=== PATIENT | female | born 1945 | race Caucasian/White ===

== ENCOUNTER → 2016-07-19 | Day surgery (SDC) | payer OTHER, BC ==
[2016-07-03 16:00] VITALS: Ht 177.8 cm; Wt 108.6 kg
[~2016-07-19] VITALS: Ht 177.8 cm; Wt 108.6 kg
[~2016-07-19] MED LIST: 500ML BSS 0.3ML EPI 1:1000PF IRRIG ONE; ACETAMINOPHEN 325 MG TAB PO PRN; AMB5 PO; AMLO-114 PO; AMVISC PLUS 0.8ML SYRINGE INT OCU ONE; ASPI81TA28 PO; ATOR10TA82 PO; ATROPINE SULFATE 0.1 MG/ML 5ML SYR IV PRN; BETAXOLOL HCL 0.25% OP SUSP PER DROP CHARGE OPR SCH; BRIMONIDINE TART 0.2% OP SOLN PER DROP CHARGE ONE; BSS FLUSH ONE; CALC200T PO; CARV6.25 PO; CARV6.252 PO; CIPR-255 PO; COEN100C11 PO; CRS/10 PO; CYCL5TAB PO; CYCL5TAB28 PO; ENDOCOAT 0.85ML SYRINGE INT OCU ONE; EpHEDrine SULFATE INJ 50 MG/ML AMP IV PRN; EpINEphrine INJ 1MG/ML AMP 1 MG/ML AMP ONE; FEXO1TAB49 PO; GLC/500 PO; GLUC1CAP35 PO; GLUCTAB32 PO; HYDR25TA4 PO; LACTATED RINGER'S 1000ML 500 ML IV SCH; LEVO125T5 PO; LIDOCAINE 4% OP SOLN DROP CHARGE ONE; LIDOCAINE 4% OP SOLN DROP CHARGE OPR SCH; LIDOCAINE HCL 1% MPF 2 ML VIAL ONE; LISI-729 PO; LOSA100T65 PO; LOSA1TAB38 PO; MELO15TA3 PO; METH500T3 PO; METH500T37 PO; METO25TA3 PO; METR-162 PO; MIDAZOLAM HCL 1 MG/ML 2ML VIAL ONE; MINEOIL26 PO; MIX: 4ML BSS 1ML EPI 1:1000 PF INSTIL ONE; MOXIFLOXACIN OPH SOLN PER DROP CHARGE ONE; MULT-190 PO; NSNN50; OCUCOAT 1 ML SOLN IO ONE; OMEG120013 PO; OXYC1TAB3 PO; POVIDONE-IODINE OP SOLN 30 ML BTL ONE; PRED1SUS OPR; PROPARACAINE 0.5% OP SOLN PER DROP CHARGE OPR SCH; TOBRAMYCIN/DEXAMETHASONE OPH OINT PER APPLN CHARGE ONE; TYL325X PO
--- NOTE | 2016-07-19 06:32 | History & Physical Bridge - [place] ---
H&P Re-Evaluation Bridge Note: I have examined the patient, reviewed the History & Physical and in the interval since the performance of the History & Physical I have noted the following changes of clinical significance: No changes noted
[2016-07-19] MEDS: PHENYLEPHRINE HCL 2.5% OP SOLN PER DROP CHARGE OPR SCH ×2 (07:17→07:23)
[2016-07-19] MEDS: TROPICAMIDE 1% OP SOLN PER DROP CHARGE OPR SCH ×2 (07:18→07:24)
[2016-07-19] MEDS: CYCLOPENTOLATE HCL 1% OP SOLN PER DROP CHARGE OPR SCH ×2 (07:19→07:25)
[2016-07-19] MEDS: MOXIFLOXACIN OPH SOLN PER DROP CHARGE OPR SCH ×2 (07:20→07:30)
--- NOTE | 2016-07-19 07:51 | Discharge Instructions-SurgCtr ---
Discharge Instructions Date of Service July 19, 2016. Visit Reason for Visit: Cataract Right Eye Discharge Discharge Diagnosis / Problem: lens implant right eye Discharge Goals Goal(s): Improve function Activity Recommendations Activity Limitations: resume your previous activity Lifting Limitations: no more than 10 pounds Exercise/Sports Limitations: gradually increase as tolerated May Resume Sexual Activity: when tolerated Shower/Bathe: no limitations Driving or Machine Use: resume 1 day after discharge Anesthesia . Post Anesthesia Instructions: If you have had General Anesthesia or IV Sedation: * Do not drive today. * Resume driving when surgeon permits. * Do not make important decisions or sign legal documents today. * Call surgeon for: 1. Temperature elevations greater than 101 degrees F. 2. Uncontrollable pain. 3. Excessive bleeding. 4. Persistent nausea and vomiting. 5. Medication intolerance (nausea, vomiting or rash). * For nausea and vomiting use only clear liquids such as: tea, soda, bouillon until nausea subsides, then gradually increase diet as tolerated. * If you have any concerns or questions, call your surgeon's office. If physician is unavailable and it is an emergency, call 911 or go to the nearest emergency room. . Instructions / Follow-Up Instructions / Follow-Up ACTIVITY RECOMMENDATIONS: * Light activities. * Mild irritation and blurred vision are common for the first few days. * You may walk outside, read, watch television. * Redness around the white part of the eye is common. MEDICATIONS: Resume previous medications unless instructed otherwise by your surgeon. Start all eye drops at 1 pm today: * Eye drops (today and tomorrow): Prednisone - one drop in operative eye every 3 hours while awake Ofloxacin - one drop in operative eye every 3 hours while awake SPECIAL CARE INSTRUCTIONS: * Tape plastic shield over eye to sleep at night. Call your doctor at with any concerns or problems. FOLLOW UP VISIT: Follow-up with Dr Tatum at [place] office as scheduled. Diet Recommendations Home Diet: no limitations Procedures Procedures Performed: cataract extraction with lens implant Pending Studies Studies pending at discharge: no Medical Emergencies . Who to Call and When: Medical Emergencies: If at any time you feel your situation is an emergency, please call 911 immediately. . Non-Emergent Contact Non-Emergency issues call your: Manager [employer] Call Non-Emergent contact if: your pain is not controlled [phone] . . "Provider Documentation" section prepared by Chad Tatum. .
--- NOTE | 2016-07-19 07:53 | [facility] Operative Report ---
Operative Report Date of Service July 19, 2016. Operative Report 1. PREOPERATIVE DIAGNOSIS: Senile nuclear cataract, right eye. 2. POSTOPERATIVE DIAGNOSIS: Senile nuclear cataract, right eye. 3. PROCEDURE: Phacoemulsification of right cataract with posterior chamber lens implant, type Bausch [employer] Lomb, model MI60L, power +18.0 diopters. ANESTHESIA: Local standby. SURGEON: Dr. Tatum. COMPLICATIONS: None. OPERATING TIME: 10 minutes. 4. OPERATION AND FINDINGS: DESCRIPTION OF PROCEDURE: The right pupil was dilated. The anesthetic was administered using a topical technique. The right eye was prepped and draped. A speculum was placed. A clear corneal incision was formed. The chamber was filled with Amvisc Plus and Endocoat. Epinephrine solution was used. A paracentesis was placed. A capsulorrhexis was performed. The nucleus was hydrodissected. The lens was removed with phacoemulsification. Time was 2.18 seconds. The aspiration unit was used to remove the cortex. The capsule was filled with Amvisc Plus. The lens implant was folded and placed into the capsule. The incision was hydrated. The Amvisc was aspirated. The wound was secure. The chamber was deep. The pupil was round. Brimonidine, TobraDex ointment and Vigamox solution were placed. The speculum was removed. The patient was returned to the Recovery Room in stable condition. I attest to the content of the Intraoperative Record and any orders documented therein. Any exceptions are noted below. The scribe's documentation has been prepared in my presence, under my direction and personally reviewed by me in its entirety. I confirm that the note above accurately reflects all work, treatment, procedures, and medical decision making performed by me. I personally scribed for Chad Tatum M.D. ([email or web address]) on 07/19/16 at 07:53. Electronically submitted by Tanika Church ([email or web address]).
--- NOTE | 2016-07-19 08:01 | Anesthesia Progress Nt - [facility] ---
Anesthesia Post Op Note Date & Time July 19, 2016 at 08:01 Vital Signs Pain Intensity: 0 Vital Signs Past 12 Hours Date Time Temp Pulse Resp B/P Pulse Ox O2 Delivery O2 Flow Rate FiO2 07/19/16 07:58 36.7 67 14 130/78 96 Room Air 07/19/16 07:11 36.9 61 16 128/80 96 Room Air Notes Mental Status: alert / awake / arousable, participated in evaluation Pt Amnestic to Procedure: Yes Nausea / Vomiting: adequately controlled Pain: adequately controlled Airway Patency, RR, SpO2: stable & adequate BP & HR: stable & adequate Hydration State: stable & adequate Anesthetic Complications: no major complications apparent
[2016-07-19 08:20] VITALS: BP 134/79; PULSE 61; TEMP 36.7; O2SAT 95
== END | disposition home or self-care (01) ==
LOC: X.SURG 06:14
PROVIDERS: ATTEND Specialist
DX: H25.11 Age-related nuclear cataract, right eye (principal); E11.36 Type 2 diabetes mellitus with diabetic cataract; I10 Essential (primary) hypertension; E03.9 Hypothyroidism, unspecified; E78.5 Hyperlipidemia, unspecified; E66.9 Obesity, unspecified; Z87.891 Personal history of nicotine dependence; Z88.2 Allergy status to sulfonamides; Z68.34 Body mass index [BMI] 34.0-34.9, adult; Z98.890 Other specified postprocedural states; Z90.89 Acquired absence of other organs; Z90.49 Acquired absence of other specified parts of digestive tract

== ENCOUNTER → 2016-08-02 | Day surgery (SDC) | payer OTHER, BC ==
[2016-07-31 10:38] VITALS: Ht 177.8 cm; Wt 108.6 kg
[~2016-08-02] VITALS: Ht 177.8 cm; Wt 108.6 kg
[~2016-08-02] MED LIST changes: +AcetaZOLAMIDE 250 MG TAB PO SCH; +AcetylCHOLine CHL OP SOL 1:100 2 ML BTL ONE; +BETAXOLOL HCL 0.25% OP SUSP PER DROP CHARGE OPL SCH; -BETAXOLOL HCL 0.25% OP SUSP PER DROP CHARGE OPR SCH; +CEFAZOLIN 1000MG/55 ML D5W IV SCH; +CEFAZOLIN 2000 MG/60 ML D5W IV SCH; +CEFAZOLIN 3000 MG/65 ML D5W IV SCH; +CLINDAMYCIN PHOS 150 MG/ML 2 ML VIAL IV SCH; +CYCLOPENTOLATE HCL 1% OP SOLN PER DROP CHARGE OPL SCH; +FENTANYL CITRATE INJ 50 MCG/1 ML 2 ML VIAL ONE; -LIDOCAINE 4% OP SOLN DROP CHARGE ONE; +LIDOCAINE 4% OP SOLN DROP CHARGE OPL SCH; -LIDOCAINE 4% OP SOLN DROP CHARGE OPR SCH; +LIDOCAINE HCL 2% 2 ML VIAL (20MG/ML) ONE; -LISI-729 PO; -MELO15TA3 PO; +MOXIFLOXACIN OPH SOLN PER DROP CHARGE OPL SCH; +NURSING VERBAL MED ORDER ONE; +ONDANSETRON INJ 2 MG/ML 2 ML VIAL ONE; +PHENYLEPHRINE HCL 2.5% OP SOLN PER DROP CHARGE OPL SCH; +PROPARACAINE 0.5% OP SOLN PER DROP CHARGE OPL SCH; -PROPARACAINE 0.5% OP SOLN PER DROP CHARGE OPR SCH; +PROPOFOL IV EMULSION 10 MG/ML 20 ML VIAL IV ONE; +SODIUM CHLORIDE 0.9% 500ML IV SCH; +TROPICAMIDE 1% OP SOLN PER DROP CHARGE OPL SCH; -TYL325X PO
[2016-08-02] MEDS: PHENYLEPHRINE HCL 2.5% OP SOLN PER DROP CHARGE OPL SCH ×2 (10:06→10:10)
[2016-08-02] MEDS: TROPICAMIDE 1% OP SOLN PER DROP CHARGE OPL SCH ×2 (10:07→10:12)
[2016-08-02] MEDS: CYCLOPENTOLATE HCL 1% OP SOLN PER DROP CHARGE OPL SCH ×2 (10:08→10:13)
[2016-08-02] MEDS: MOXIFLOXACIN OPH SOLN PER DROP CHARGE OPL SCH ×2 (10:09→10:17)
[2016-08-02] MEDS: LIDOCAINE 4% OP SOLN DROP CHARGE ONE ×2 (10:21→10:39)
--- NOTE | 2016-08-02 11:10 | Discharge Instructions-SurgCtr ---
Discharge Instructions Date of Service August 02, 2016. Visit Reason for Visit: Left Cataract Discharge Discharge Diagnosis / Problem: lens implant left eye Discharge Goals Goal(s): Improve function Medications Stopped Medications Name(s): last metformin on Sunday Activity Recommendations Activity Limitations: resume your previous activity Lifting Limitations: no more than 10 pounds Exercise/Sports Limitations: gradually increase as tolerated May Resume Sexual Activity: when tolerated Shower/Bathe: tomorrow Driving or Machine Use: resume 1 day after discharge Anesthesia . Post Anesthesia Instructions: If you have had General Anesthesia or IV Sedation: * Do not drive today. * Resume driving when surgeon permits. * Do not make important decisions or sign legal documents today. * Call surgeon for: 1. Temperature elevations greater than 101 degrees F. 2. Uncontrollable pain. 3. Excessive bleeding. 4. Persistent nausea and vomiting. 5. Medication intolerance (nausea, vomiting or rash). * For nausea and vomiting use only clear liquids such as: tea, soda, bouillon until nausea subsides, then gradually increase diet as tolerated. * If you have any concerns or questions, call your surgeon's office. If physician is unavailable and it is an emergency, call 911 or go to the nearest emergency room. . Instructions / Follow-Up Instructions / Follow-Up ACTIVITY RECOMMENDATIONS: * Light activities. * Mild irritation and blurred vision are common for the first few days. * You may walk outside, read, watch television. * Redness around the white part of the eye is common. MEDICATIONS: Resume previous medications unless instructed otherwise by your surgeon. Start all eye drops at 1 pm today: * Eye drops (today and tomorrow): Prednisone - one drop in operative eye every 3 hours while awake Ofloxacin - one drop in operative eye every 3 hours while awake SPECIAL CARE INSTRUCTIONS: * Tape plastic shield over eye to sleep at night. Call your doctor at with any concerns or problems. FOLLOW UP VISIT: Follow-up with Dr Tatum at [place] office as scheduled. Diet Recommendations Home Diet: no limitations Procedures Procedures Performed: Left Cataract Phacoemulsification With Intraocular Lens Implant Pending Studies Studies pending at discharge: no Medical Emergencies . Who to Call and When: Medical Emergencies: If at any time you feel your situation is an emergency, please call 911 immediately. . Non-Emergent Contact Non-Emergency issues call your: Dry Room Attendant Call Non-Emergent contact if: your pain is not controlled [phone] . . "Provider Documentation" section prepared by Chad Tatum. .
[2016-08-02 11:15] VITALS: TEMP 36.6
--- NOTE | 2016-08-02 11:19 | [facility] Post Operative Brief Note ---
Immediate Operative Summary Operative Date August 02, 2016. Pre-Operative Diagnosis Cataract Left Eye Post-Operative Diagnosis Same Procedure(s) Performed Left Cataract Phacoemulsification With Intraocular Lens Implant Ruptured Posterior Capsule requiring anterior vitrectomy and sulcus lens implant and a single suture. Surgeon Dr. Tatum Licensing And Registration Director Surgeon(s) None Estimated Blood Loss 0 Findings Nuclear Cataract Fluids (cc crystalloids) 600cc Specimens None Drains none Anesthesia local standby Complication(s) posterior capsular rupture requiring anterior vitrectomy
[2016-08-02 11:46] VITALS: BP 125/75; PULSE 60; O2SAT 95
--- NOTE | 2016-08-02 11:49 | Anesthesia Progress Nt - [facility] ---
Anesthesia Post Op Note Date & Time August 02, 2016 at 11:49 Vital Signs Pain Intensity: 0 Vital Signs Past 12 Hours Date Time Temp Pulse Resp B/P Pulse Ox O2 Delivery O2 Flow Rate FiO2 08/02/16 11:46 60 16 125/75 95 Room Air 08/02/16 11:15 36.6 82 16 147/82 96 Room Air 08/02/16 09:51 36.8 62 16 136/78 96 Room Air Notes Mental Status: alert / awake / arousable, participated in evaluation Pt Amnestic to Procedure: Yes Nausea / Vomiting: adequately controlled Pain: adequately controlled Airway Patency, RR, SpO2: stable & adequate BP & HR: stable & adequate Hydration State: stable & adequate Anesthetic Complications: no major complications apparent
--- NOTE | 2016-08-02 11:53 | OPERATIVE REPORT ---
DATE OF OPERATION: 08/02/2016 PREOPERATIVE DIAGNOSIS: Senile nuclear cataract, left eye. POSTOPERATIVE DIAGNOSIS: Senile nuclear cataract, left eye. PROCEDURE: Phacoemulsification of left cataract with posterior chamber lens implant, type Bausch \T\ Lomb, model LI61AO, power +19.0 Diopters. ANESTHESIA: Local standby using 4% topical lidocaine. SURGEON: Dr. Tatum. COMPLICATIONS: Posterior capsule rupture requiring anterior vitrectomy. OPERATING TIME: 35 minutes. OPERATION AND FINDINGS: PROCEDURE: The patient was identified. The left pupil was dilated. The left eye was prepped and draped. A speculum was placed. A paracentesis was placed. The chamber was filled with Amvisc Plus and EndoCoat. A temporal clear corneal incision was formed. A capsulorrhexis was performed. The nucleus was hydrodissected. The lens was removed with phacoemulsification. Time was 3.55. The cortex was aspirated. It was noticed at this time that there was a break in the posterior capsule with vitreous to the incision. An anterior vitrectomy was performed. At the completion of this procedure there was no apparent vitreous in the anterior chamber or to the incision. The chamber was filled with Amvisc Plus. The lens implant was inspected and folded and placed into the posterior chamber sulcus. The incision was closed using a single 10-0 nylon suture. The Amvisc was aspirated. Miochol was irrigated into the chamber. The suture knot was cut short. The incisions were hydrated. The wounds were secure. The chamber was deep. The pupil was round. Alphagan and TobraDex and Vigamox were placed. The speculum was removed. The eye did not require a patch. DISPOSITION: The patient was returned to the recovery room in stable condition having tolerated the procedure well. I attest to the content of the Intraoperative Record and any orders documented therein. Any exceptio ns are noted below.
== END | disposition home or self-care (01) ==
LOC: X.SURG 09:20
PROVIDERS: ATTEND Specialist
DX: H25.12 Age-related nuclear cataract, left eye (principal); H59.219 Accidental puncture and laceration of unspecified eye and adnexa during an ophthalmic procedure; I10 Essential (primary) hypertension; Z79.899 Other long term (current) drug therapy; Z79.82 Long term (current) use of aspirin

== ENCOUNTER 2016-08-11 11:40 | Emergency (ER) | payer OTHER, BC ==
[~2016-08-11] VITALS: Ht 177.8 cm; Wt 85.8 kg
[~2016-08-11 11:40] MED LIST changes: -500ML BSS 0.3ML EPI 1:1000PF IRRIG ONE; -ACETAMINOPHEN 325 MG TAB PO PRN; -AMB5 PO; -AMVISC PLUS 0.8ML SYRINGE INT OCU ONE; -ASPI81TA28 PO; -ATROPINE SULFATE 0.1 MG/ML 5ML SYR IV PRN; -AcetaZOLAMIDE 250 MG TAB PO SCH; -AcetylCHOLine CHL OP SOL 1:100 2 ML BTL ONE; -BETAXOLOL HCL 0.25% OP SUSP PER DROP CHARGE OPL SCH; -BRIMONIDINE TART 0.2% OP SOLN PER DROP CHARGE ONE; -BSS FLUSH ONE; -CARV6.25 PO; -CEFAZOLIN 1000MG/55 ML D5W IV SCH; -CEFAZOLIN 2000 MG/60 ML D5W IV SCH; -CEFAZOLIN 3000 MG/65 ML D5W IV SCH; -CIPR-255 PO; -CLINDAMYCIN PHOS 150 MG/ML 2 ML VIAL IV SCH; -COEN100C11 PO; -CRS/10 PO; -CYCL5TAB PO; -CYCLOPENTOLATE HCL 1% OP SOLN PER DROP CHARGE OPL SCH; -ENDOCOAT 0.85ML SYRINGE INT OCU ONE; -EpHEDrine SULFATE INJ 50 MG/ML AMP IV PRN; -EpINEphrine INJ 1MG/ML AMP 1 MG/ML AMP ONE; -FENTANYL CITRATE INJ 50 MCG/1 ML 2 ML VIAL ONE; -FEXO1TAB49 PO; -GLUC1CAP35 PO; -LACTATED RINGER'S 1000ML 500 ML IV SCH; -LIDOCAINE 4% OP SOLN DROP CHARGE OPL SCH; -LIDOCAINE HCL 1% MPF 2 ML VIAL ONE; -LIDOCAINE HCL 2% 2 ML VIAL (20MG/ML) ONE; -LOSA100T65 PO; -METH500T3 PO; -METO25TA3 PO; -METR-162 PO; -MIDAZOLAM HCL 1 MG/ML 2ML VIAL ONE; -MINEOIL26 PO; -MIX: 4ML BSS 1ML EPI 1:1000 PF INSTIL ONE; -MOXIFLOXACIN OPH SOLN PER DROP CHARGE ONE; -MOXIFLOXACIN OPH SOLN PER DROP CHARGE OPL SCH; -NURSING VERBAL MED ORDER ONE; -OCUCOAT 1 ML SOLN IO ONE; -OMEG120013 PO; -ONDANSETRON INJ 2 MG/ML 2 ML VIAL ONE; -OXYC1TAB3 PO; -PHENYLEPHRINE HCL 2.5% OP SOLN PER DROP CHARGE OPL SCH; -POVIDONE-IODINE OP SOLN 30 ML BTL ONE; -PROPARACAINE 0.5% OP SOLN PER DROP CHARGE OPL SCH; -PROPOFOL IV EMULSION 10 MG/ML 20 ML VIAL IV ONE; -SODIUM CHLORIDE 0.9% 500ML IV SCH; -TOBRAMYCIN/DEXAMETHASONE OPH OINT PER APPLN CHARGE ONE; -TROPICAMIDE 1% OP SOLN PER DROP CHARGE OPL SCH
[2016-08-11 11:42] VITALS: TEMP 37.3; Ht 177.8 cm; Wt 85.8 kg
[2016-08-11] MEDS ORDERED: SODIUM CHLORIDE 0.9% 1000ML 1,000 ML IV STA (12:05)
[2016-08-11] MEDS ORDERED: MoRPHine SULFATE 10 MG/ML CARP/VIAL IV STA ×2 (12:05→13:43)
[2016-08-11] MEDS ORDERED: ONDANSETRON INJ 2 MG/ML 2 ML VIAL IV STA (12:05)
[2016-08-11 12:20] LABS: BASO % 0.1 %; BASO ABS # 0.02 K/uL (0-0.2); COMPLETE YES; EOS % 0.4 %; HEMATOCRIT 41.9 % (37-47); IG% 0.3 %; LYMPH % 12.9 %; LYMPH ABS # 1.93 K/uL (1.2-3.4); MEAN CELL VOLUME 89.1 fL (80-100); MEAN CORPUSCULAR HEMOGLOBIN 29.6 pg (25-34); MEAN CORPUSCULAR HGB CONC 33.2 g/dl (32-36); MEAN PLATELET VOLUME 11.7 fL (7.4-10.4); MONO % 7.4 %; NEUT % 78.9 %; PLATELET COUNT 201 K/uL (130-400); WHITE BLOOD COUNT 14.93 K/uL (4.8-10.8)
[2016-08-11] MEDS ORDERED: METH500T3 PO (12:32)
[2016-08-11] MEDS ORDERED: OMEG120013 PO (12:35)
[2016-08-11] MEDS ORDERED: CRS/10 PO (12:35)
[2016-08-11] MEDS ORDERED: COEN100C11 PO (12:35)
[2016-08-11] MEDS ORDERED: FEXO1TAB49 PO (12:35)
[2016-08-11] MEDS ORDERED: MINEOIL26 PO (12:35)
[2016-08-11] MEDS ORDERED: ASPI81TA28 PO (12:35)
[2016-08-11] MEDS ORDERED: METO25TA3 PO (12:35)
[2016-08-11] MEDS ORDERED: AMB5 PO (12:35)
[2016-08-11 12:40] LABS: URINE APPEARANCE CLEAR (CLEAR); URINE BILIRUBIN NEG (NEG); URINE COLOR YELLOW; URINE NITRITE NEG (NEG); URINE PH 5.5 (4.5-7.5); URINE SPECIFIC GRAVITY 1.019 (1.000-1.030); UROBILINOGEN NEG (NEG); ZZUR CULT IF INDIC CLEAN CATCH NO
[2016-08-11 12:42] LABS: BUN/CREATININE RATIO 14.1 (10-20); CALCIUM 9.2 mg/dl (8.5-10.1); CREATININE 0.87 mg/dl (0.60-1.20)
[2016-08-11 12:55] LABS: MANUAL MICROSCOPIC REQUIRED? NO; REVIEW REQ? NO
[2016-08-11] MEDS ORDERED: GLC/500 PO (12:55)
[2016-08-11] MEDS ORDERED: GLUC1CAP35 PO (12:55)
[2016-08-11] MEDS ORDERED: LOSA100T65 PO (12:55)
[2016-08-11] MEDS ORDERED: CARV6.25 PO (12:55)
[2016-08-11] MEDS ORDERED: CALC200T PO (12:55)
[2016-08-11] MEDS ORDERED: ATOR10TA82 PO (12:55)
[2016-08-11] MEDS ORDERED: MULT-190 PO (12:55)
[2016-08-11] MEDS ORDERED: LEVO125T5 PO (12:55)
[2016-08-11] MEDS ORDERED: HYDR25TA4 PO (12:55)
[2016-08-11] MEDS ORDERED: AMLO-114 PO (12:55)
[2016-08-11] MEDS ORDERED: METH500T37 PO (12:55)
[2016-08-11] MEDS ORDERED: PRED1SUS OPR (12:55)
[2016-08-11] MEDS ORDERED: CYCL5TAB PO (12:55)
--- NOTE | 2016-08-11 13:37 | DIAGNOSTIC IMAGING REPORT ---
ABDOMEN AND PELVIS CT WITH IV CONTRAST CT DOSE: 953.87 mGycm HISTORY: Left flank pain ll. Abd pain TECHNIQUE: Multiaxial CT images of the abdomen and pelvis were performed following the use of intravenous contrast. COMPARISON STUDY: None. FINDINGS: Mild dependent basilar atelectasis. Liver spleen and pancreas appear unremarkable. Right kidney is negative for hydronephrosis. There is an extrarenal pelvis involving the left kidney with several sub-5 mm cortical cyst. Wall thickening of the proximal to mid descending colon is noted with associated with several diverticuli. There is moderate/rather significant pericolonic infiltrative change. There is no evidence for drainable abscess collection or obstruction.. There are findings of mild chronic sigmoid diverticulosis. There is no free fluid within the pelvic cul-de-sac. Bladder is midline. There is no significant abdominal pelvic or inguinal adenopathy. IMPRESSION: 1. Acute proximal to mid descending colonic diverticulitis. 2. Wall thickening and pericolonic infiltrative change, 3. No evidence for abscess collection or obstruction. Electronically signed by: Prosper Turner M.D. 08/11/2016 1:36 PM Dictated Date/Time: 08/11/2016 1:30 PM
[2016-08-11] MEDS ORDERED: CIPROFLOXACIN 500 MG TAB PO STA (13:42)
[2016-08-11] MEDS ORDERED: METRONIDAZOLE 500MG / 100ML NSS IV STA (13:42)
[2016-08-11 14:39] VITALS: O2SAT 94
[2016-08-11] MEDS ORDERED: METR-162 PO (15:38)
[2016-08-11] MEDS ORDERED: CIPR-255 PO (15:38)
[2016-08-11] MEDS ORDERED: OXYC1TAB3 PO (15:38)
[2016-08-11 15:45] VITALS: BP 112/66; PULSE 81; O2SAT 94
--- NOTE | 2016-08-11 17:18 | EMERGENCY ROOM VISIT NOTE ---
History Report prepared by So: Lamar Caban Under the Supervision of: Dr. Dhiraj Gutiérrez D.O. First contact with patient: 11:41 Chief Complaint: ABDOMINAL PAIN History of Present Illness The patient is a 71 year old female who presents to the Emergency Room with complaints of constant severe left sided abdominal pain beginning last night. She notes that last night she felt her abdomen was distended and she needed to have a bowel movement. She did drink prune juice. The patient also notes nausea and vomiting. She has a history of appendectomy and complete hysterectomy. She has a history of diverticulitis. Patient was referred by PCP. Pt denies headache , change in vision, fevers, chest pain, shortness of breath, diarrhea, pain with urination, and melena. Source of History: patient Onset: last night Position: abdomen (left sided) Symptom Intensity: severe Timing: constant Associated Symptoms: + nausea, + vomiting, No fevers Review of Systems See HPI for pertinent positives & negatives. A total of 10 systems reviewed and were otherwise negative. Past Medical & Surgical Medical Problems: (1) Benign hypertension (2) Degenerative disc disease (3) Dyslipidemia (4) Dyslipidemia (5) HTN (hypertension) (6) Lumbago (7) Respiratory failure, acute Surgical Problems: (1) Appendectomy (2) Cholecystectomy (3) History of appendectomy (4) History of hysterectomy (5) History of tonsillectomy and adenoidectomy (6) Hx of cholecystectomy (7) Hysterectomy (8) Tonsillectomy and adenoidectomy (9) Vaginal sling Family History Cancer Diabetes mellitus Heart disease Hypertension Kidney disease Kidney stones Social History Smoking Status: Never Smoker Drug Use: none Marital Status: Housing Status: lives with family Occupation Status: retired Current/Historical Medications Scheduled Amlodipine (Norvasc), 10 MG PO DAILY Atorvastatin (Lipitor), 10 MG PO DAILY Calcium Carbonate-Vitamin D (Oscal 500/200 D-3), 1 TAB PO DAILY Carvedilol (Coreg), 6.25 MG PO BID Ciprofloxacin Hcl (Cipro), 500 MG PO BID Wduabdssnzr-Fpntjhacjbl-Gxx C- (Glucosamine Chondroitin), 1 CAP PO DAILY Hydrochlorothiazide (Hctz), 25 MG PO 2XWK Levothyroxine Sodium (Levothyroxine Sodium), 1 TAB PO DAILY Losartan Potassium (Cozaar), 100 MG PO DAILY Metformin Hcl (Glucophage), 500 MG PO DAILY Metronidazole (Flagyl), 1 TAB PO TID Ocuvite Preservision (Ocuvite Preservision), 1 TAB PO DAILY Prednisolone Acetate (Ophth) (Omnipred), 1 DROPS OPR TID Scheduled PRN Cyclobenzaprine Hcl (Flexeril), 5 MG PO TID PRN for Muscle Spasms Methocarbamol (Robaxin), 500 MG PO TID PRN for UNDECIDED Oxycodone Immediate Rel Tab (Roxicodone Ir), 5 MG PO Q6H PRN for Pain Allergies Coded Allergies: Nitrofurantoin (Verified Allergy, Mild, TONGUE SWELLS, 08/02/16) Sulfa Antibiotics (Verified Allergy, Unknown, ITCHY-BUT TAKES HCTZ W/O PROBLEM, 08/02/16) Physical Exam Vital Signs Date Time Temp Pulse Resp B/P Pulse Ox O2 Delivery O2 Flow Rate FiO2 08/11/16 15:45 81 20 112/66 94 Room Air 08/11/16 14:39 94 Nasal Cannula 3.0 08/11/16 14:37 82 16 137/66 86 Room Air 08/11/16 13:32 87 22 143/68 92 Room Air 08/11/16 12:02 86 08/11/16 11:42 37.3 85 20 138/82 96 Room Air Physical Exam GENERAL: alert, disheveled appearing, well nourished, no distress, non-toxic EYE EXAM: normal conjunctiva, PERRL and EOM's grossly intact OROPHARYNX: no exudate, no erythema, lips, buccal mucosa, and tongue normal and mucous membranes are moist NECK: supple, no nuchal rigidity, no adenopathy, non-tender LUNGS: Clear to auscultation. Normal chest wall mechanics HEART: no murmurs, S1 normal and S2 normal ABDOMEN: abdomen soft, left lower quadrant tenderness, normo-active bowel sounds , no masses, no rebound or guarding. BACK: Back is symmetrical on inspection and there is no deformity, no midline tenderness, no CVA tenderness. SKIN: no rashes and no bruising UPPER EXTREMITIES: upper extremities are grossly normal. LOWER EXTREMITIES: No pitting edema. NEURO EXAM: Normal sensorium, cranial nerves II-XII grossly intact, normal speech, no gross weakness of arms, no gross weakness of legs. Medical Decision & Procedures ER Provider Diagnostic Interpretation: CT scan: Radiology provided the following report CT Abdomen and Pelvis: The preliminary reading from radiology is the following, ABDOMEN AND PELVIS CT WITH IV CONTRAST CT DOSE: 953.87 mGycm HISTORY: Left flank pain ll. Abd pain TECHNIQUE: Multiaxial CT images of the abdomen and pelvis were performed following the use of intravenous contrast. COMPARISON STUDY: None. FINDINGS: Mild dependent basilar atelectasis. Liver spleen and pancreas appear unremarkable. Right kidney is negative for hydronephrosis. There is an extrarenal pelvis involving the left kidney with several sub-5 mm cortical cyst. Wall thickening of the proximal to mid descending colon is noted with associated with several diverticuli. There is moderate/rather significant pericolonic infiltrative change. There is no evidence for drainable abscess collection or obstruction.. There are findings of mild chronic sigmoid diverticulosis. There is no free fluid within the pelvic cul-de-sac. Bladder is midline. There is no significant abdominal pelvic or inguinal adenopathy. IMPRESSION: 1. Acute proximal to mid descending colonic diverticulitis. 2. Wall thickening and pericolonic infiltrative change, 3. No evidence for abscess collection or obstruction. Electronically signed by: Prosper Turner M.D. 08/11/2016 1:36 PM Dictated Date/Time: 08/11/2016 1:30 PM Laboratory Results 08/11/16 12:00 Red Blood Count 4.70, Mean Corpuscular Volume 89.1, Mean Corpuscular Hemoglobin 29.6, Mean Corpuscular Hemoglobin Concent 33.2, Mean Platelet Volume 11.7, Neutrophils (%) (Auto) 78.9, Lymphocytes (%) (Auto) 12.9, Monocytes (%) (Auto) 7.4, Eosinophils (%) (Auto) 0.4, Basophils (%) (Auto) 0.1, Neutrophils # (Auto) 11.78, Lymphocytes # (Auto) 1.93, Monocytes # (Auto) 1.10, Eosinophils # (Auto) 0.06, Basophils # (Auto) 0.02 08/11/16 12:00 Test 08/11/16 12:00 08/11/16 12:25 White Blood Count 14.93 K/uL (4.8-10.8) Red Blood Count 4.70 M/uL (4.2-5.4) Hemoglobin 13.9 g/dL (12.0-16.0) Hematocrit 41.9 % (37-47) Mean Corpuscular Volume 89.1 fL (80-100) Mean Corpuscular Hemoglobin 29.6 pg (25-34) Mean Corpuscular Hemoglobin Concent 33.2 g/dl (32-36) Platelet Count 201 K/uL (130-400) Mean Platelet Volume 11.7 fL (7.4-10.4) Neutrophils (%) (Auto) 78.9 % Lymphocytes (%) (Auto) 12.9 % Monocytes (%) (Auto) 7.4 % Eosinophils (%) (Auto) 0.4 % Basophils (%) (Auto) 0.1 % Neutrophils # (Auto) 11.78 K/uL (1.4-6.5) Lymphocytes # (Auto) 1.93 K/uL (1.2-3.4) Monocytes # (Auto) 1.10 K/uL (0.11-0.59) Eosinophils # (Auto) 0.06 K/uL (0-0.5) Basophils # (Auto) 0.02 K/uL (0-0.2) RDW Standard Deviation 43.5 fL (36.4-46.3) RDW Coefficient of Variation 13.2 % (11.5-14.5) Immature Granulocyte % (Auto) 0.3 % Immature Granulocyte # (Auto) 0.04 K/uL (0.00-0.02) Anion Gap 6.0 mmol/L (3-11) Est Creatinine Clear Calc Drug Dose 71.6 ml/min Estimated GFR () 78.2 Estimated GFR (Non- 67.5 BUN/Creatinine Ratio 14.1 (10-20) Calcium Level 9.2 mg/dl (8.5-10.1) Total Bilirubin 1.1 mg/dl (0.2-1) Direct Bilirubin 0.3 mg/dl (0-0.2) Aspartate Amino Transf (AST/SGOT) 44 U/L (15-37) Alanine Aminotransferase (ALT/SGPT) 40 U/L (12-78) Alkaline Phosphatase 83 U/L (45-117) Total Protein 7.7 gm/dl (6.4-8.2) Albumin 3.8 gm/dl (3.4-5.0) Lipase 143 U/L (73-393) Urine Color YELLOW Urine Appearance CLEAR (CLEAR) Urine pH 5.5 (4.5-7.5) Urine Specific [place] 1.019 (1.000-1.030) Urine Protein NEG (NEG) Urine Glucose (UA) NEG (NEG) Urine Ketones NEG (NEG) Urine Occult Blood TRACE (NEG) Urine Nitrite NEG (NEG) Urine Bilirubin NEG (NEG) Urine Urobilinogen NEG (NEG) Urine Leukocyte Esterase NEG (NEG) Urine WBC (Auto) 0 /hpf (0-5) Urine RBC (Auto) 0-4 /hpf (0-4) Urine Hyaline Casts (Auto) 1-5 /lpf (0-5) Urine Epithelial Cells (Auto) 5-10 /lpf (0-5) Urine Bacteria (Auto) NEG (NEG) Laboratory results per my review. Medications Administered Medications (Trade) Dose Ordered Sig/Sia Route Start Time Stop Time Status Last Admin Dose Admin Morphine Sulfate (MoRPHine SULFATE INJ) 6 mg NOW STAT IV 08/11/16 12:05 08/11/16 12:06 DC 08/11/16 12:19 6 MG Ondansetron HCl 4 mg 4 mg NOW STAT IV 08/11/16 12:05 08/11/16 12:06 DC 08/11/16 12:19 4 MG Sodium Chloride (Nss 1000ml) 1,000 ml @ 999 mls/hr Q1H1M STAT IV 08/11/16 12:05 08/11/16 13:05 DC 08/11/16 12:18 999 MLS/HR Metronidazole (Flagyl / Nss) 500 mg NOW STAT IV 08/11/16 13:42 08/11/16 13:43 DC 08/11/16 13:58 500 MG Ciprofloxacin (Cipro Tab) 500 mg NOW STAT PO 08/11/16 13:42 08/11/16 13:43 DC 08/11/16 13:58 500 MG Morphine Sulfate (MoRPHine SULFATE INJ) 6 mg NOW STAT IV 08/11/16 13:43 08/11/16 13:44 DC 08/11/16 13:58 6 MG ED Course ED COURSE: Vital signs were reviewed and showed hypertensive vitals. The patients medical record was reviewed The above diagnostic studies were performed and reviewed. ED treatments and interventions as stated above. 1159: The patient was evaluated in room B11. A complete history and physical examination was performed. 1205: Sodium Chloride 1,000 ml @ 999 mls/hr IV, Zofran Inj 4 mg IV, Morphine Sulfate Inj 6 mg IV. 1319: The patient is sleeping now after the Morphine. 1342: Cipro Tab 500 mg PO, Flagyl/ Nss 500 mg IV, Morphine Sulfate Inj 6 mg IV. 1524: I reevaluated the patient and she is doing well. 1540: Upon reevaluation, the patient is hemodynamically stable.I discussed my findings with the patient and she understands and agrees with the treatment plan. Based on the patients age, coexisting illnesses, exam and lab findings the decision to treat as an outpatient was made. The patient remained stable while under my care. The patient appeared well at the time of discharge. Medical Decision Differential diagnoses includes but is not limited to gastritis, peptic ulcer disease, GERD, gallbladder disease, pancreatitis, small bowel obstruction, acute coronary syndrome, pericarditis, ischemic bowel, irritable bowel disease, irritable bowel syndrome, appendicitis, diverticulitis, malignancy, hernia, urinary tract infection, torsion, [/ectopic (if female)], perforation, trauma, infectious. The patient is a 71 year old female who presents to the ED with complaints of abdominal pain. She is acutely tender in left lower quadrant. CT of her abdomen pelvis shows acute diverticulitis without perforation or abscess. Labs do show a leukocytosis of 14,000. There was slight elevation of bilirubin however with pain on the left lower quadrant and this is not explored any further especially with a negative CT. Patient was given 2 doses of IV narcotics along with IV Flagyl and oral Cipro. Patient was discharged to follow -up with primary care doctor for acute diverticulitis. Discussed with Pt concerning signs and symptoms to watch out for. Pt was instructed to follow up with their PCP and discussed with the patient their option to return to the ED at anytime for persistent or worsening symptoms. The appropriate anticipatory guidance and out-patient management, including indications for return to the emergency department, were explained at length to the patient and understood. [place] Drug Monitoring Program Search Results: patient reviewed within database, no issues identified Impression Primary Impression: Diverticulitis Additional Impression: Leukocytosis Scribe Attestation The scribe's documentation has been prepared under my direction and personally reviewed by me in its entirety. I confirm that the note above accurately reflects all work, treatment, procedures, and medical decision making performed by me. Departure Information Dispostion Home / Self-Care Prescriptions Ciprofloxacin Hcl (CIPRO) 500 Mg Tab 500 MG PO BID, #20 TAB Prov: Dhiraj Gutiérrez, DO 08/11/16 Metronidazole (FLAGYL) 500 Mg Tab 1 TAB PO TID for 10 Days, #30 TAB Prov: Dhiraj Gutiérrez, DO 08/11/16 Oxycodone Immediate Rel Tab (ROXICODONE IR) 5 Mg Tab 5 MG PO Q6H Y for Pain, #15 TAB Prov: Dhiraj Gutiérrez, DO 08/11/16 Referrals Ran Angel M.D. (PCP) Forms HOME CARE DOCUMENTATION FORM, IMPORTANT VISIT INFORMATION Patient Instructions ED Diverticulitis, [facility] Additional Instructions Please follow up with your primary care doctor with in the next 24 hours. Any worsening of your symptoms, please return to the ED immediately. His includes fevers greater than 100.4, worsening pain, persistent nausea vomiting, unable to eat or drink, or any other concerning signs or symptoms from your standpoint. You were given medications during this visit that will inhibit your ability to drive, operate machinery and work. Please do NOT drive, operate machinery or work for the next 12hrs. You were also given a prescription for a narcotic/oxy IR. While taking this medication you should also not drive, operate machinery and or work. Please take antibiotics as prescribed. Problem Qualifiers Primary Impression: Diverticulitis Diverticulitis site: unspecified part of intestinal tract Diverticulitis bleeding: without bleeding Diverticulitis complication: without perforation or abscess Qualified Codes: K57.92 - Diverticulitis of intestine, part unspecified, without perforation or abscess without bleeding Additional Impression: Leukocytosis Leukocytosis type: unspecified Qualified Codes: D72.829 - Elevated white blood cell count, unspecified
[2016-08-15] MEDS ORDERED: METR-162 PO (12:12)
[2016-08-15] MEDS ORDERED: CIPR-255 PO (12:12)
== END 2016-08-11 15:46 | disposition home or self-care (01) ==
LOC: C.EDB 11:41
DX: K57.92 Diverticulitis of intestine, part unspecified, without perforation or abscess without bleeding (principal); D72.829 Elevated white blood cell count, unspecified; I10 Essential (primary) hypertension; E78.5 Hyperlipidemia, unspecified; J96.00 Acute respiratory failure, unspecified whether with hypoxia or hypercapnia; Z83.3 Family history of diabetes mellitus; Z82.49 Family history of ischemic heart disease and other diseases of the circulatory system

== ENCOUNTER 2016-08-12 15:48 | Inpatient (IN) | payer OTHER, BC ==
[~2016-08-12] VITALS: Ht 177.8 cm; Wt 109.4 kg
[~2016-08-12 15:48] MED LIST changes: +CARV6.25 PO; -CARV6.252 PO; +CIPR-255 PO; +CYCL5TAB PO; -CYCL5TAB28 PO; +GLUC1CAP35 PO; -GLUCTAB32 PO; +LOSA100T65 PO; -LOSA1TAB38 PO; +METR-162 PO; -NSNN50; +OXYC1TAB3 PO
[2016-08-12] MEDS ORDERED: ONDANSETRON INJ 2 MG/ML 2 ML VIAL ONE (16:07)
[2016-08-12] MEDS ORDERED: HYDROmorphone INJ 0.5 MG/0.5 ML SYR IV STA (16:08)
[2016-08-12] MEDS ORDERED: ONDANSETRON INJ 2 MG/ML 2 ML VIAL IV STA (16:08)
[2016-08-12] MEDS ORDERED: SODIUM CHLORIDE 0.9% 1000ML 1,000 ML IV STA (16:08)
[2016-08-12] MEDS ORDERED: DAPTOmycin IV 600 MG in SODIUM CHLORIDE 0.9% 50ML 50 ML IV STA (16:10)
[2016-08-12] MEDS ORDERED: PIPERACILLIN/TAZOBACTAM 4.5 GM/100ML D5W IV STA (16:10)
[2016-08-12 16:21] LABS: BASO % 0.1 %; BASO ABS # 0.01 K/uL (0-0.2); COMPLETE YES; EOS % 0.2 %; HEMATOCRIT 36.6 % (37-47); IG% 0.4 %; LYMPH % 17.5 %; MEAN CELL VOLUME 89.7 fL (80-100); MEAN CORPUSCULAR HEMOGLOBIN 28.9 pg (25-34); MEAN CORPUSCULAR HGB CONC 32.2 g/dl (32-36); MEAN PLATELET VOLUME 10.9 fL (7.4-10.4); MONO % 6.7 %; NEUT % 75.1 %; PLATELET COUNT 179 K/uL (130-400); RED BLOOD COUNT 4.08 M/uL (4.2-5.4); WHITE BLOOD COUNT 12.01 K/uL (4.8-10.8)
--- NOTE | 2016-08-12 16:33 | EMERGENCY ROOM VISIT NOTE ---
History Report prepared by So: Alvarado Riley Under the Supervision of: Dr. Winston Shah M.D. First contact with patient: 16:03 Chief Complaint: ABDOMINAL PAIN Stated Complaint: DIVERTICULIS History of Present Illness The patient is a 71 year old female who presents to the Emergency Room with complaints of worsening left sided abdominal pain for the past day. She is accompanied by her . The patient rates her discomfort as a 10/10 in severity. She was diagnosed with diverticulitis yesterday here in the ED and was sent home on antibiotics. In the past day, her pain has worsened and she returns to the emergency department with increased pain, nausea, and vomiting. Source of History: patient, spouse/significant other () Onset: a few days ago Position: abdomen (LLQ) Symptom Intensity: 10/10 Timing: worsening Associated Symptoms: + nausea, + vomiting Review of Systems See HPI for pertinent positives & negatives. A total of 10 systems reviewed and were otherwise negative. Past Medical & Surgical Medical Problems: (1) Benign hypertension (2) Degenerative disc disease (3) Dyslipidemia (4) Dyslipidemia (5) HTN (hypertension) (6) Lumbago (7) Respiratory failure, acute Surgical Problems: (1) Appendectomy (2) Cholecystectomy (3) History of appendectomy (4) History of hysterectomy (5) History of tonsillectomy and adenoidectomy (6) Hx of cholecystectomy (7) Hysterectomy (8) Tonsillectomy and adenoidectomy (9) Vaginal sling Family History Cancer Diabetes mellitus Heart disease Hypertension Kidney disease Kidney stones Social History Smoking Status: Former Smoker Drug Use: none Marital Status: Housing Status: lives with family Occupation Status: retired Current/Historical Medications Scheduled Amlodipine (Norvasc), 10 MG PO DAILY Atorvastatin (Lipitor), 10 MG PO DAILY Calcium Carbonate-Vitamin D (Oscal 500/200 D-3), 1 TAB PO DAILY Carvedilol (Coreg), 6.25 MG PO BID Ciprofloxacin Hcl (Cipro), 500 MG PO BID Salxwftvljk-Nwyljfwyilv-Vba C- (Glucosamine Chondroitin), 1 CAP PO DAILY Hydrochlorothiazide (Hctz), 25 MG PO 2XWK Levothyroxine Sodium (Levothyroxine Sodium), 1 TAB PO DAILY Losartan Potassium (Cozaar), 100 MG PO DAILY Metformin Hcl (Glucophage), 500 MG PO DAILY Metronidazole (Flagyl), 1 TAB PO TID Ocuvite Preservision (Ocuvite Preservision), 1 TAB PO DAILY Prednisolone Acetate (Ophth) (Omnipred), 1 DROPS OPR TID Scheduled PRN Cyclobenzaprine Hcl (Flexeril), 5 MG PO TID PRN for Muscle Spasms Methocarbamol (Robaxin), 500 MG PO TID PRN for UNDECIDED Oxycodone Immediate Rel Tab (Roxicodone Ir), 5 MG PO Q6H PRN for Pain Allergies Coded Allergies: Nitrofurantoin (Verified Allergy, Mild, TONGUE SWELLS, 08/12/16) Sulfa Antibiotics (Verified Allergy, Unknown, ITCHY-BUT TAKES HCTZ W/O PROBLEM, 08/12/16) Physical Exam Vital Signs Date Time Temp Pulse Resp B/P Pulse Ox O2 Delivery O2 Flow Rate FiO2 08/12/16 17:32 87 20 111/60 92 Room Air 08/12/16 15:52 37.5 74 20 122/67 91 Room Air Physical Exam GENERAL: Patient is a healthy-appearing well-nourished HEAD: Normocephalic atraumatic EYES: Ocular movements intact pupils equal and react to light OROPHARYNX mucous membranes are moist no exudates present no erythema or edema present NECK: Supple no nuchal rigidity CHEST: Good equal expansion LUNGS: Clear and equal to auscultation CARDIAC: Normal S1 and S2 ABDOMEN: Left lower quadrant tenderness. Abdomen is otherwise soft, no guarding. BACK: No CVA tenderness EXTREMITIES: No pain upon palpation normal muscle strength in all groups no clubbing cyanosis or edema NEURO: Patient is following commands is answering questions appropriately. Alert and oriented x3 Cranial Nerves 2-12 grossly intact Medical Decision & Procedures ER Provider Diagnostic Interpretation: X-ray results as stated below per interpretation by me and the radiologist: PA CHEST WITH ABDOMINAL SERIES CLINICAL HISTORY: Left lower quadrant abdominal pain. Diverticulitis. FINDINGS: A PA chest radiograph is compared to study dated 07/25/2015 and correlated with chest CT dated 07/24/2015. The Examination is degraded by patient rotation. The heart is enlarged and there is atherosclerotic calcification of the thoracic aorta. The pulmonary vasculature is noncongested. Chronic interstitial thickening is unchanged and there is mild bibasilar atelectasis. The lungs and pleural spaces are otherwise clear. No pneumothorax is seen. The skeletal structures are osteopenic. The bony thorax is grossly intact. Supine and erect abdominal radiographs are correlated with abdominal CT dated 08/11/2016. There is a nonobstructed abdominal bowel gas pattern. No evidence of intraperitoneal free air is seen. There are no abnormal abdominal calcifications. Small phleboliths are identified in the pelvis. There is lumbar sacral spondylosis. The bony pelvis appears intact. IMPRESSION: 1. Cardiomegaly with no active disease in the chest. 2. No bowel obstruction or intraperitoneal free air is seen. 3. Acute diverticulitis seen on yesterday's abdominal CT scan cannot be assessed by x-ray. Electronically signed by: Alexei Birmingham M.D. 08/12/2016 5:02 PM Dictated Date/Time: 08/12/2016 4:59 PM Laboratory Results 08/12/16 16:05 Red Blood Count 4.08, Mean Corpuscular Volume 89.7, Mean Corpuscular Hemoglobin 28.9, Mean Corpuscular Hemoglobin Concent 32.2, Mean Platelet Volume 10.9, Neutrophils (%) (Auto) 75.1, Lymphocytes (%) (Auto) 17.5, Monocytes (%) (Auto) 6.7, Eosinophils (%) (Auto) 0.2, Basophils (%) (Auto) 0.1, Neutrophils # (Auto) 9.02, Lymphocytes # (Auto) 2.10, Monocytes # (Auto) 0.80, Eosinophils # (Auto) 0.03, Basophils # (Auto) 0.01 08/12/16 16:05 Test 08/12/16 16:05 08/12/16 17:30 White Blood Count 12.01 K/uL (4.8-10.8) Red Blood Count 4.08 M/uL (4.2-5.4) Hemoglobin 11.8 g/dL (12.0-16.0) Hematocrit 36.6 % (37-47) Mean Corpuscular Volume 89.7 fL (80-100) Mean Corpuscular Hemoglobin 28.9 pg (25-34) Mean Corpuscular Hemoglobin Concent 32.2 g/dl (32-36) Platelet Count 179 K/uL (130-400) Mean Platelet Volume 10.9 fL (7.4-10.4) Neutrophils (%) (Auto) 75.1 % Lymphocytes (%) (Auto) 17.5 % Monocytes (%) (Auto) 6.7 % Eosinophils (%) (Auto) 0.2 % Basophils (%) (Auto) 0.1 % Neutrophils # (Auto) 9.02 K/uL (1.4-6.5) Lymphocytes # (Auto) 2.10 K/uL (1.2-3.4) Monocytes # (Auto) 0.80 K/uL (0.11-0.59) Eosinophils # (Auto) 0.03 K/uL (0-0.5) Basophils # (Auto) 0.01 K/uL (0-0.2) RDW Standard Deviation 44.2 fL (36.4-46.3) RDW Coefficient of Variation 13.4 % (11.5-14.5) Immature Granulocyte % (Auto) 0.4 % Immature Granulocyte # (Auto) 0.05 K/uL (0.00-0.02) Prothrombin Time 11.2 SECONDS (9.0-12.0) Prothromb Time International Ratio 1.0 (0.9-1.1) Anion Gap 9.0 mmol/L (3-11) Est Creatinine Clear Calc Drug Dose 50.1 ml/min Estimated GFR () 44.0 Estimated GFR (Non- 38.0 BUN/Creatinine Ratio 16.5 (10-20) Calcium Level 8.9 mg/dl (8.5-10.1) Total Bilirubin 1.4 mg/dl (0.2-1) Direct Bilirubin 0.7 mg/dl (0-0.2) Aspartate Amino Transf (AST/SGOT) 98 U/L (15-37) Alanine Aminotransferase (ALT/SGPT) 134 U/L (12-78) Alkaline Phosphatase 130 U/L (45-117) Total Protein 7.4 gm/dl (6.4-8.2) Albumin 3.3 gm/dl (3.4-5.0) Lipase 267 U/L (73-393) Hepatitis C Antibody Screen NEG (NEG) Urine Color [place] Urine Appearance CLOUDY (CLEAR) Urine pH 5.0 (4.5-7.5) Urine Specific [place] 1.034 (1.000-1.030) Urine Protein TRACE (NEG) Urine Glucose (UA) NEG (NEG) Urine Ketones NEG (NEG) Urine Occult Blood NEG (NEG) Urine Nitrite NEG (NEG) Urine Bilirubin NEG (NEG) Urine Urobilinogen NEG (NEG) Urine Leukocyte Esterase NEG (NEG) Urine WBC (Auto) 1-5 /hpf (0-5) Urine RBC (Auto) 0-4 /hpf (0-4) Urine Hyaline Casts (Auto) 5-10 /lpf (0-5) Urine Epithelial Cells (Auto) 20-30 /lpf (0-5) Urine Bacteria (Auto) NEG (NEG) Labs reviewed by ED physician. Medications Administered Medications (Trade) Dose Ordered Sig/Sia Route Start Time Stop Time Status Last Admin Dose Admin Ondansetron HCl (Zofran Inj) 4 mg STK-MED ONCE .ROUTE 08/12/16 16:07 08/12/16 16:08 DC 08/12/16 16:19 4 MG Hydromorphone HCl 0.5 mg 0.5 mg NOW STAT IV 08/12/16 16:08 08/12/16 16:09 DC 08/12/16 16:19 0.5 MG Sodium Chloride (Nss 1000ml) 1,000 ml @ 999 mls/hr Q1H1M STAT IV 08/12/16 16:08 08/12/16 17:08 DC 08/12/16 16:18 999 MLS/HR Piperacillin Sod/ Tazobactam Sod 4.5 gm 4.5 gm NOW STAT IV 08/12/16 16:10 08/12/16 16:13 DC 08/12/16 16:18 4.5 GM Daptomycin/Sodium Chloride (Cubicin IV/Nss 50ml) 62 ml @ 100 mls/hr NOW STAT IV 08/12/16 16:10 08/12/16 16:47 DC 08/12/16 16:50 100 MLS/HR ED Course 1606: Past medical records reviewed. The patient was evaluated in room C01B. A complete history and physical examination was performed. 1608: Ordered Zofran Injection 4 mg IV, Sodium Chloride 1000 ml @ 999 mls/hr IV , Dilaudid 0.5 mg IV. 1610: Ordered Daptomycin 600 mg/ Sodium Chloride 62 ml @ 100 mls/hr Iv, Zosyn Iv 4.5 gm IV. 1701: I discussed the patient's case with Dr. Clark, [facility] Hospitalist. The patient will further be evaluated. Medical Decision Etiologies such as appendicitis, diverticulitis, PUD, biliary pathology, UTI, pancreatitis, obstruction, mesenteric ischemia, aortic pathology, infections, inflammatory bowel disease, renal colic, as well as others were entertained. Medication Reconciliation: I attest that I have personally reviewed the patient' s current medication list Blood Pressure Screening: Patient was found to have an elevated blood pressure and was referred to their primary care doctor for recheck and further treatment This is a 71-year-old female who presents emergency department complaining of abdominal pain as well as nausea and vomiting. Patient was diagnosed with diverticulitis yesterday and was been unable to keep down her medications. Based on this an IV was established, the patient was given Dilaudid, Zosyn, daptomycin. I did discuss the case with the hospitalist service who agreed to admit the patient. Serial abdominal examinations were performed on the patient in the emergency department and at no time the patient exhibited a surgical abdomen. I do believe that the patient as well as to be discharged home. Patient family were in agreement with the treatment plan. Consults Time Called: 1700 Consulting Physician: Dr. Clark Returned Call: 1701 I discussed the patient's case with Dr. Clark, [facility] Hospitalist. The patient will further be evaluated. Impression Primary Impression: Diverticulitis Scribe Attestation The scribe's documentation has been prepared under my direction and personally reviewed by me in its entirety. I confirm that the note above accurately reflects all work, treatment, procedures, and medical decision making performed by me. Departure Information Dispostion Being Evaluated By Hospitalist Referrals Ran Angel M.D. (PCP) Patient Instructions My [facility] Problem Qualifiers Primary Impression: Diverticulitis Diverticulitis site: unspecified part of intestinal tract Diverticulitis bleeding: unspecified bleeding status Diverticulitis complication: without perforation or abscess Qualified Codes: K57.92 - Diverticulitis of intestine, part unspecified, without perforation or abscess without bleeding
[2016-08-12 16:42] LABS: BUN/CREATININE RATIO 16.5 (10-20); CALCIUM 8.9 mg/dl (8.5-10.1); CREATININE 1.4 mg/dl (0.60-1.20)
--- NOTE | 2016-08-12 17:03 | DIAGNOSTIC IMAGING REPORT ---
PA CHEST WITH ABDOMINAL SERIES CLINICAL HISTORY: Left lower quadrant abdominal pain. Diverticulitis. FINDINGS: A PA chest radiograph is compared to study dated 07/25/2015 and correlated with chest CT dated 07/24/2015. The Examination is degraded by patient rotation. The heart is enlarged and there is atherosclerotic calcification of the thoracic aorta. The pulmonary vasculature is noncongested. Chronic interstitial thickening is unchanged and there is mild bibasilar atelectasis. The lungs and pleural spaces are otherwise clear. No pneumothorax is seen. The skeletal structures are osteopenic. The bony thorax is grossly intact. Supine and erect abdominal radiographs are correlated with abdominal CT dated 08/11/2016. There is a nonobstructed abdominal bowel gas pattern. No evidence of intraperitoneal free air is seen. There are no abnormal abdominal calcifications. Small phleboliths are identified in the pelvis. There is lumbar sacral spondylosis. The bony pelvis appears intact. IMPRESSION: 1. Cardiomegaly with no active disease in the chest. 2. No bowel obstruction or intraperitoneal free air is seen. 3. Acute diverticulitis seen on yesterday's abdominal CT scan cannot be assessed by x-ray. Electronically signed by: Alexei Birmingham M.D. 08/12/2016 5:02 PM Dictated Date/Time: 08/12/2016 4:59 PM
[2016-08-12] MEDS ORDERED: ALUMINUM/MAGNESIUM/SIMETH (MAALOX MAX) 30 ML UDC PO PRN (17:15)
[2016-08-12] MEDS ORDERED: MAGNESIUM HYDROXIDE SUSP 30 ML UDC PO PRN (17:15)
[2016-08-12] MEDS ORDERED: ONDANSETRON INJ 2 MG/ML 2 ML VIAL IV PRN (17:15)
[2016-08-12] MEDS ORDERED: ACETAMINOPHEN 325 MG TAB PO PRN (17:15)
[2016-08-12] MEDS ORDERED: AMPICILLIN/SULBACTAM SOD INJ 3,000 MG in SODIUM CHLORIDE 0.9% 100ML 100 ML IV SCH (17:15)
[2016-08-12] MEDS ORDERED: POLYETHYLENE (MIRALAX) 17 GM PACK PO PRN (17:15)
[2016-08-12] MEDS ORDERED: OXYCODONE HCL IR 5 MG TAB (IMMEDIATE RELEASE) ONE (17:46)
[2016-08-12 17:50] LABS: URINE APPEARANCE CLOUDY (CLEAR); URINE EPITHELIAL CELL AUTO 20-30 /lpf (0-5); URINE SPECIFIC GRAVITY 1.034 (1.000-1.030); UROBILINOGEN NEG (NEG)
[2016-08-12 17:59] LABS: MANUAL MICROSCOPIC REQUIRED? NO; REVIEW REQ? NO; URINE BILIRUBIN NEG (NEG); URINE COLOR AMBER; URINE NITRITE NEG (NEG)
[2016-08-12] MEDS ORDERED: MoRPHine SULFATE 2 MG/ML CARP IV PRN (18:00)
[2016-08-12] MEDS ORDERED: PIPERACILL/TAZOBAC IV 3.375 GM in DEXTROSE 5% 100ML 100 ML IV SCH (18:00)
--- NOTE | 2016-08-12 18:18 | History and Physical ---
History & Physical Date & Time of Service: August 12, 2016 at 17:43 Chief Complaint: Diverticulis Primary Care Physician: Ran Angel M.D. History of Present Illness Source: patient, clinic records, hospital records This is a 71 year old female with a PMH of HTN, HLD, DM2, hypothyroid, recent cataract surgery, diverticulosis presented to the ER on 08/11 with acute diverticulitis - was told she should stay, but she wanted to go home and manage as an outpatient - she was prescribed Cipro + Flagyl and pain medications; she went home, but developed fevers, nausea/vomiting and could not keep anything down by mouth. She came back to the ER today; received Zofran, as well as Zosyn and Daptomycin and 1L of fluids - she feels better. Past Medical/Surgical History Medical Problems: (1) Benign hypertension Status: Chronic (2) Degenerative disc disease Status: Chronic (3) Dyslipidemia Status: Chronic (4) Dyslipidemia Status: Chronic (5) HTN (hypertension) Status: Chronic (6) Lumbago Status: Chronic Surgical Problems: (1) Appendectomy Status: Resolved (2) Cholecystectomy Status: Resolved (3) History of appendectomy Status: Chronic (4) History of hysterectomy Status: Chronic (5) History of tonsillectomy and adenoidectomy Status: Chronic (6) Hx of cholecystectomy Status: Chronic (7) Hysterectomy Status: Resolved (8) Tonsillectomy and adenoidectomy Status: Resolved (9) Vaginal sling Status: Chronic Family History Cancer Diabetes mellitus Heart disease Hypertension Kidney disease Kidney stones Social History Smoking Status: Former Smoker Drug Use: none Marital Status: Occupational Status: retired Immunizations History of Influenza Vaccine: Yes Influenza Vaccine Date: Dec 03, 2014 History of Tetanus Vaccine?: Yes Tetanus Immunization Date: July 29, 2008 History of Pneumococcal: Yes Pneumococcal Date: Dec 21, 2011 Multi-Drug Resistant Organisms History of MDRO: No Allergies Coded Allergies: Nitrofurantoin (Verified Allergy, Mild, TONGUE SWELLS, 08/12/16) Sulfa Antibiotics (Verified Allergy, Unknown, ITCHY-BUT TAKES HCTZ W/O PROBLEM, 08/12/16) Home Medications Scheduled Amlodipine (Norvasc), 10 MG PO DAILY Atorvastatin (Lipitor), 10 MG PO DAILY Calcium Carbonate-Vitamin D (Oscal 500/200 D-3), 1 TAB PO DAILY Carvedilol (Coreg), 6.25 MG PO BID Ciprofloxacin Hcl (Cipro), 500 MG PO BID Rgizeumgzjy-Hjnxwmbgyqv-Mon C- (Glucosamine Chondroitin), 1 CAP PO DAILY Hydrochlorothiazide (Hctz), 25 MG PO 2XWK Levothyroxine Sodium (Levothyroxine Sodium), 1 TAB PO DAILY Losartan Potassium (Cozaar), 100 MG PO DAILY Metformin Hcl (Glucophage), 500 MG PO DAILY Metronidazole (Flagyl), 1 TAB PO TID Ocuvite Preservision (Ocuvite Preservision), 1 TAB PO DAILY Prednisolone Acetate (Ophth) (Omnipred), 1 DROPS OPR TID Scheduled PRN Cyclobenzaprine Hcl (Flexeril), 5 MG PO TID PRN for Muscle Spasms Methocarbamol (Robaxin), 500 MG PO TID PRN for UNDECIDED Oxycodone Immediate Rel Tab (Roxicodone Ir), 5 MG PO Q6H PRN for Pain Review of Systems Constitutional: + chills, + fever, + weakness Eyes: No diplopia, No eye pain, No redness, No worsening of vision ENT: No hearing loss Respiratory: No cough, No shortness of breath, No sputum Cardiovascular: No chest pain Abdomen: + nausea, + pain, + vomiting, No GI bleeding, No constipation, No diarrhea Musculoskeletal: No joint pain Genitourinary - Female: No dysuria, No urinary frequency, No urinary urgency Neurologic: + weakness, No balance problems, No numbness/tingling, No vertigo Psychiatric: No depression symptoms Hematologic / Lymphatic: No abnormal bleeding/bruising Integumentary: No rash Allergic / Immunologic: No environmental allergies, No seasonal allergies Physical Exam Vital Signs Date Time Temp Pulse Resp B/P Pulse Ox O2 Delivery O2 Flow Rate FiO2 08/12/16 17:32 87 20 111/60 92 Room Air 08/12/16 15:52 37.5 74 20 122/67 91 Room Air General Appearance: no apparent distress Head: normocephalic, atraumatic Eyes: normal inspection ENT: hearing grossly normal Neck: supple Respiratory/Chest: chest non-tender, lungs clear, normal breath sounds, no respiratory distress, no accessory muscle use Cardiovascular: regular rate, rhythm, no edema, no gallop, no JVD, no murmur, normal peripheral pulses Abdomen/GI: normal bowel sounds, soft, + tenderness (worse at the L upper quadrant) Back: no CVA tenderness Extremities/Musculoskelatal: normal inspection, no calf tenderness, normal capillary refill, no pedal edema, normal range of motion Neurologic/Psych: no motor/sensory deficits, alert, normal mood/affect Skin: normal color Lymphatic: no adenopathy Diagnostics Laboratory Results Results Past 24 Hours Test 08/12/16 16:05 08/12/16 16:08 Range/Units White Blood Count 12.01 4.8-10.8 K/uL Red Blood Count 4.08 4.2-5.4 M/uL Hemoglobin 11.8 12.0-16.0 g/dL Hematocrit 36.6 37-47 % Mean Corpuscular Volume 89.7 80-100 fL Mean Corpuscular Hemoglobin 28.9 25-34 pg Mean Corpuscular Hemoglobin Concent 32.2 32-36 g/dl Platelet Count 179 130-400 K/uL Mean Platelet Volume 10.9 7.4-10.4 fL Neutrophils (%) (Auto) 75.1 % Lymphocytes (%) (Auto) 17.5 % Monocytes (%) (Auto) 6.7 % Eosinophils (%) (Auto) 0.2 % Basophils (%) (Auto) 0.1 % Neutrophils # (Auto) 9.02 1.4-6.5 K/uL Lymphocytes # (Auto) 2.10 1.2-3.4 K/uL Monocytes # (Auto) 0.80 0.11-0.59 K/uL Eosinophils # (Auto) 0.03 0-0.5 K/uL Basophils # (Auto) 0.01 0-0.2 K/uL RDW Standard Deviation 44.2 36.4-46.3 fL RDW Coefficient of Variation 13.4 11.5-14.5 % Immature Granulocyte % (Auto) 0.4 % Immature Granulocyte # (Auto) 0.05 0.00-0.02 K/uL Sodium Level 137 136-145 mmol/L Potassium Level 4.0 3.5-5.1 mmol/L Chloride Level 100 98-107 mmol/L Carbon Dioxide Level 28 21-32 mmol/L Anion Gap 9.0 3-11 mmol/L Blood Urea Nitrogen 23 7-18 mg/dl Creatinine 1.40 0.60-1.20 mg/dl Est Creatinine Clear Calc Drug Dose 50.1 ml/min Estimated GFR () 44.0 Estimated GFR (Non- 38.0 BUN/Creatinine Ratio 16.5 10-20 Random Glucose 140 70-99 mg/dl Calcium Level 8.9 8.5-10.1 mg/dl Total Bilirubin 1.4 0.2-1 mg/dl Direct Bilirubin 0.7 0-0.2 mg/dl Aspartate Amino Transf (AST/SGOT) 98 15-37 U/L Alanine Aminotransferase (ALT/SGPT) 134 12-78 U/L Alkaline Phosphatase 130 45-117 U/L Total Protein 7.4 6.4-8.2 gm/dl Albumin 3.3 3.4-5.0 gm/dl Lipase 267 73-393 U/L Diagnostic Radiology PA CHEST WITH ABDOMINAL SERIES CLINICAL HISTORY: Left lower quadrant abdominal pain. Diverticulitis. FINDINGS: A PA chest radiograph is compared to study dated 07/25/2015 and correlated with chest CT dated 07/24/2015. The Examination is degraded by patient rotation. The heart is enlarged and there is atherosclerotic calcification of the thoracic aorta. The pulmonary vasculature is noncongested. Chronic interstitial thickening is unchanged and there is mild bibasilar atelectasis. The lungs and pleural spaces are otherwise clear. No pneumothorax is seen. The skeletal structures are osteopenic. The bony thorax is grossly intact. Supine and erect abdominal radiographs are correlated with abdominal CT dated 08/11/2016. There is a nonobstructed abdominal bowel gas pattern. No evidence of intraperitoneal free air is seen. There are no abnormal abdominal calcifications. Small phleboliths are identified in the pelvis. There is lumbar sacral spondylosis. The bony pelvis appears intact. IMPRESSION: 1. Cardiomegaly with no active disease in the chest. 2. No bowel obstruction or intraperitoneal free air is seen. 3. Acute diverticulitis seen on yesterday's abdominal CT scan cannot be assessed by x-ray. ABDOMEN AND PELVIS CT WITH IV CONTRAST CT DOSE: 953.87 mGycm HISTORY: Left flank pain ll. Abd pain TECHNIQUE: Multiaxial CT images of the abdomen and pelvis were performed following the use of intravenous contrast. COMPARISON STUDY: None. FINDINGS: Mild dependent basilar atelectasis. Liver spleen and pancreas appear unremarkable. Right kidney is negative for hydronephrosis. There is an extrarenal pelvis involving the left kidney with several sub-5 mm cortical cyst. Wall thickening of the proximal to mid descending colon is noted with associated with several diverticuli. There is moderate/rather significant pericolonic infiltrative change. There is no evidence for drainable abscess collection or obstruction.. There are findings of mild chronic sigmoid diverticulosis. There is no free fluid within the pelvic cul-de-sac. Bladder is midline. There is no significant abdominal pelvic or inguinal adenopathy. IMPRESSION: 1. Acute proximal to mid descending colonic diverticulitis. 2. Wall thickening and pericolonic infiltrative change, 3. No evidence for abscess collection or obstruction. Impression Assessment and Plan This is a 71 year old female with a PMH of HTN, HLD, DM2, hypothyroid, recent cataract surgery, diverticulosis presented with acute proximal-mid colonic diverticulitis Acute Colonic Diverticulitis patient presented on 08/11 with diverticulitis was sent home with Cipro + Flagyl returned to the ER due to nausea/vomiting and could not keep anything down plan is to keep NPO, IVFs will cont IV Zosyn and switch to Augmentin on discharge IV morphine PRN general surgery consultation Acute Kidney Injury creatinine jumped from 0.9 to 1.4 secondary to nausea/vomiting/decreased PO intake give IVFs monitor creat Elevated LFTs jump in AST, ALT, T .bili, Alk Phos secondary to infection or abx? CT abd did not show any issues with liver will recheck in AM hold statin HTN blood pressure stable hold Cozaar due to kidney injury hold HCTZ due to dehydration continue Coreg, Amlodipine DM2 Ha1c = 6.5% hold oral agents hold insulin due to NPO Hypothyroid cont. Synthroid DVT ppx subq heparin FULL CODE VTE Prophylaxis VTE Risk Assessment Done? Y/N: Yes Risk Level: Moderate
[2016-08-12 18:30] VITALS: O2SAT 93; BMI 34.6
[2016-08-12 18:39] VITALS: BP 142/71; PULSE 73; TEMP 37.2; O2SAT 93
[2016-08-12] MEDS ORDERED: PIPERACILL/TAZOBAC CONSULT ACTIVE PRN (19:15)
[2016-08-12 19:31] LABS: PROTHROMBIN TIME (PATIENT) 11.2 SECONDS (9.0-12.0)
[2016-08-12] MEDS: NSS + 20MEQ KCL 1000ML 1,000 ML IV SCH (20:07)
[2016-08-12] MEDS: PrednisoLONE ACET 1% OP SUSP 5 ML BTL OPR SCH (21:15)
[2016-08-12] MEDS: OXYCODONE HCL IR 5 MG TAB (IMMEDIATE RELEASE) PO PRN (21:15)
[2016-08-12 21:25] VITALS: BP 116/70; PULSE 66
[2016-08-12] MEDS: CARVEDILOL 6.25 MG TAB PO SCH (21:26)
[2016-08-12] MEDS: HEPARIN SOD 5000 UNIT/0.5 ML CARP SQ SCH (21:33)
[2016-08-12] MEDS: PIPERACILL/TAZOBAC IV 3.375 GM in DEXTROSE 5% 100ML IV SCH (21:35)
--- NOTE | 2016-08-12 21:48 | Medical Consult ---
Consultation Date of Consultation: August 12, 2016. Attending Physician: Megan Clark DO Reason for Consultation: diverticulitis History of Present Illness pt in ER and today with acute diverticulitis- went home yesterday- began to have N/V, fever- presents w/ significant dehydration. Past Medical/Surgical History Medical Problems: (1) Atelectasis Status: Acute (2) Benign hypertension Status: Chronic (3) Degenerative disc disease Status: Chronic (4) Diverticulitis Status: Acute (5) Diverticulitis Status: Acute (6) Dyslipidemia Status: Chronic (7) Hypoxia Status: Acute (8) Lumbar degenerative disc disease Status: Acute (9) Postoperative back pain Status: Acute (10) Postoperative fever Status: Acute Family History Cancer Diabetes mellitus Heart disease Hypertension Kidney disease Kidney stones Social History Smoking Status: Former Smoker Drug Use: none Marital Status: Housing Status: lives with family Occupation Status: retired Allergies Coded Allergies: Nitrofurantoin (Verified Allergy, Mild, TONGUE SWELLS, 08/12/16) Sulfa Antibiotics (Verified Allergy, Unknown, ITCHY-BUT TAKES HCTZ W/O PROBLEM, 08/12/16) Current Inpatient Medications Current Inpatient Medications Medications (Trade) Dose Ordered Sig/Sia Route Start Time Stop Time Status Last Admin Dose Admin Acetaminophen (Tylenol Tab) 650 mg Q4H PRN PO 08/12/16 17:15 09/11/16 17:14 Al Hydrox/Mg Hydrox/Simethicone (Maalox Max Susp) 15 ml Q4H PRN PO 08/12/16 17:15 09/11/16 17:14 Magnesium Hydroxide (Milk Of Magnesia Susp) 30 ml Q6H PRN PO 08/12/16 17:15 09/11/16 17:14 Polyethylene (Miralax Powder Packet) 17 gm DAILY PRN PO 08/12/16 17:15 09/11/16 17:14 Ondansetron HCl (Zofran Inj) 4 mg Q6H PRN IV 08/12/16 17:15 09/11/16 17:14 Heparin Sodium (Porcine) 5000 unit 5,000 unit Q12H SQ 08/12/16 21:00 09/11/16 20:59 08/12/16 21:33 5,000 UNIT Potassium Chloride/Sodium Chloride (Nss + 20meq KCl 1000ml) 1,000 ml @ 80 mls/hr [id number] IV 08/12/16 20:00 09/11/16 19:59 08/12/16 20:07 80 MLS/HR Amlodipine Besylate (Norvasc Tab) 10 mg DAILY PO 08/13/16 09:00 09/12/16 08:59 Carvedilol (Coreg Tab) 6.25 mg BID PO 08/12/16 21:00 09/11/16 20:59 08/12/16 21:26 6.25 MG Levothyroxine Sodium (Synthroid Tab) 125 mcg DAILYBB PO 08/13/16 06:00 09/12/16 05:59 Multivitamins/ Minerals (Multivitamin W/ Minerals Tab) 1 tab DAILY PO 08/13/16 09:00 09/12/16 08:59 Oxycodone HCl (Roxicodone Immediate Rel Tab) 5 mg Q6H PRN PO 08/12/16 17:45 08/26/16 17:44 08/12/16 21:15 5 MG Prednisolone Acetate (Pred Forte 1% Oph Susp) 1 drops TID OPR 08/12/16 21:00 09/11/16 20:59 08/12/16 21:15 1 DROPS Calcium/Vitamin D (Caltrate Plus Tab) 1 tab DAILY PO 08/13/16 09:00 09/12/16 08:59 Morphine Sulfate (MoRPHine SULFATE INJ) 1 mg Q4 PRN IV 08/12/16 18:00 08/26/16 17:59 Piperacillin Sod/ Tazobactam Sod 1 ea 1 ea UD PRN N/A 08/12/16 19:15 09/11/16 19:14 Piperacillin Sod/ Tazobactam Sod/ Dextrose (Zosyn Iv/D5 100ml) 115 ml @ 28.75 mls/ hr Q8@0600,1400,2200 IV 08/12/16 22:00 08/22/16 21:59 08/12/16 21:35 28.75 MLS/HR Review of Systems Constitutional: + fever Respiratory: No cough, No shortness of breath Cardiovascular: No chest pain Abdomen: + nausea, + pain, + vomiting Musculoskeletal: No joint pain Genitourinary - Female: No dysuria Endocrine: + fatigue Integumentary: No rash Physical Exam Date Time Temp Pulse Resp B/P Pulse Ox O2 Delivery O2 Flow Rate FiO2 08/12/16 21:25 66 116/70 08/12/16 18:39 37.2 73 14 142/71 93 Room Air 08/12/16 18:30 93 Room Air 08/12/16 17:32 87 20 111/60 92 Room Air 08/12/16 15:52 37.5 74 20 122/67 91 Room Air General Appearance: + mild distress (abd pain) Head: atraumatic Neck: supple Respiratory/Chest: no respiratory distress Cardiovascular: regular rate, rhythm Abdomen/GI: soft, + tenderness (Lt side) Neurologic/Psych: alert Skin: warm/dry Laboratory Results Last 24 Hours Test 08/12/16 16:05 08/12/16 17:30 White Blood Count 12.01 K/uL Red Blood Count 4.08 M/uL Hemoglobin 11.8 g/dL Hematocrit 36.6 % Mean Corpuscular Volume 89.7 fL Mean Corpuscular Hemoglobin 28.9 pg Mean Corpuscular Hemoglobin Concent 32.2 g/dl Platelet Count 179 K/uL Mean Platelet Volume 10.9 fL Neutrophils (%) (Auto) 75.1 % Lymphocytes (%) (Auto) 17.5 % Monocytes (%) (Auto) 6.7 % Eosinophils (%) (Auto) 0.2 % Basophils (%) (Auto) 0.1 % Neutrophils # (Auto) 9.02 K/uL Lymphocytes # (Auto) 2.10 K/uL Monocytes # (Auto) 0.80 K/uL Eosinophils # (Auto) 0.03 K/uL Basophils # (Auto) 0.01 K/uL RDW Standard Deviation 44.2 fL RDW Coefficient of Variation 13.4 % Immature Granulocyte % (Auto) 0.4 % Immature Granulocyte # (Auto) 0.05 K/uL Prothrombin Time 11.2 SECONDS Prothromb Time International Ratio 1.0 Sodium Level 137 mmol/L Potassium Level 4.0 mmol/L Chloride Level 100 mmol/L Carbon Dioxide Level 28 mmol/L Anion Gap 9.0 mmol/L Blood Urea Nitrogen 23 mg/dl Creatinine 1.40 mg/dl Est Creatinine Clear Calc Drug Dose 50.1 ml/min Estimated GFR () 44.0 Estimated GFR (Non- 38.0 BUN/Creatinine Ratio 16.5 Random Glucose 140 mg/dl Calcium Level 8.9 mg/dl Total Bilirubin 1.4 mg/dl Direct Bilirubin 0.7 mg/dl Aspartate Amino Transf (AST/SGOT) 98 U/L Alanine Aminotransferase (ALT/SGPT) 134 U/L Alkaline Phosphatase 130 U/L Total Protein 7.4 gm/dl Albumin 3.3 gm/dl Lipase 267 U/L Hepatitis C Antibody Screen NEG Urine Color [place] Urine Appearance CLOUDY Urine pH 5.0 Urine Specific [place] 1.034 Urine Protein TRACE Urine Glucose (UA) NEG Urine Ketones NEG Urine Occult Blood NEG Urine Nitrite NEG Urine Bilirubin NEG Urine Urobilinogen NEG Urine Leukocyte Esterase NEG Urine WBC (Auto) 1-5 /hpf Urine RBC (Auto) 0-4 /hpf Urine Hyaline Casts (Auto) 5-10 /lpf Urine Epithelial Cells (Auto) 20-30 /lpf Urine Bacteria (Auto) NEG Assessment & Plan 08/12/16- admitted with diverticulitis of Lt colon- no evidence of perforation or abscess. Cont IV Zosyn, limited po intake, IV hydration analgesics- IV atbx 3-5 days.
[2016-08-13 00:32] VITALS: BP 103/58; PULSE 65; TEMP 37; O2SAT 90
[2016-08-13] MEDS: LEVOTHYROXINE 125 MCG TAB PO SCH (05:27)
[2016-08-13] MEDS: PIPERACILL/TAZOBAC IV 3.375 GM in DEXTROSE 5% 100ML IV SCH ×3 (05:27→21:57)
[2016-08-13 05:40] LABS: HEMATOCRIT 33.3 % (37-47); MEAN CELL VOLUME 89.8 fL (80-100); MEAN CORPUSCULAR HEMOGLOBIN 28.8 pg (25-34); MEAN CORPUSCULAR HGB CONC 32.1 g/dl (32-36); PLATELET COUNT 168 K/uL (130-400); RED BLOOD COUNT 3.71 M/uL (4.2-5.4); WHITE BLOOD COUNT 8.91 K/uL (4.8-10.8)
--- NOTE | 2016-08-13 06:04 | Surgery Progress Note ---
Surgery Progress Note Date of Service August 13, 2016. Subjective some abd pain but improved, normal bright affect afeb Objective Vital Signs: Date Time Temp Pulse Resp B/P Pulse Ox O2 Delivery O2 Flow Rate FiO2 08/13/16 00:32 37.0 65 16 103/58 90 Room Air 08/12/16 23:40 Room Air 08/12/16 21:25 66 116/70 08/12/16 20:30 Room Air 08/12/16 18:39 37.2 73 14 142/71 93 Room Air 08/12/16 18:30 93 Room Air 08/12/16 17:32 87 20 111/60 92 Room Air 08/12/16 15:52 37.5 74 20 122/67 91 Room Air General Appearance: no apparent distress Respiratory/Chest: no respiratory distress Abdomen: + distended, + tenderness Laboratory Results: Results Past 24 Hours Test 08/12/16 16:05 08/12/16 17:30 08/13/16 05:15 Range/Units White Blood Count 12.01 8.91 4.8-10.8 K/uL Red Blood Count 4.08 3.71 4.2-5.4 M/uL Hemoglobin 11.8 10.7 12.0-16.0 g/dL Hematocrit 36.6 33.3 37-47 % Mean Corpuscular Volume 89.7 89.8 80-100 fL Mean Corpuscular Hemoglobin 28.9 28.8 25-34 pg Mean Corpuscular Hemoglobin Concent 32.2 32.1 32-36 g/dl Platelet Count 179 168 130-400 K/uL Mean Platelet Volume 10.9 11.0 7.4-10.4 fL Neutrophils (%) (Auto) 75.1 % Lymphocytes (%) (Auto) 17.5 % Monocytes (%) (Auto) 6.7 % Eosinophils (%) (Auto) 0.2 % Basophils (%) (Auto) 0.1 % Neutrophils # (Auto) 9.02 1.4-6.5 K/uL Lymphocytes # (Auto) 2.10 1.2-3.4 K/uL Monocytes # (Auto) 0.80 0.11-0.59 K/uL Eosinophils # (Auto) 0.03 0-0.5 K/uL Basophils # (Auto) 0.01 0-0.2 K/uL RDW Standard Deviation 44.2 43.3 36.4-46.3 fL RDW Coefficient of Variation 13.4 13.2 11.5-14.5 % Immature Granulocyte % (Auto) 0.4 % Immature Granulocyte # (Auto) 0.05 0.00-0.02 K/uL Prothrombin Time 11.2 9.0-12.0 SECONDS Prothromb Time International Ratio 1.0 0.9-1.1 Sodium Level 137 136-145 mmol/L Potassium Level 4.0 3.5-5.1 mmol/L Chloride Level 100 98-107 mmol/L Carbon Dioxide Level 28 21-32 mmol/L Anion Gap 9.0 3-11 mmol/L Blood Urea Nitrogen 23 7-18 mg/dl Creatinine 1.40 0.60-1.20 mg/dl Est Creatinine Clear Calc Drug Dose 50.1 ml/min Estimated GFR () 44.0 Estimated GFR (Non- 38.0 BUN/Creatinine Ratio 16.5 10-20 Random Glucose 140 70-99 mg/dl Calcium Level 8.9 8.5-10.1 mg/dl Total Bilirubin 1.4 0.2-1 mg/dl Direct Bilirubin 0.7 0-0.2 mg/dl Aspartate Amino Transf (AST/SGOT) 98 15-37 U/L Alanine Aminotransferase (ALT/SGPT) 134 12-78 U/L Alkaline Phosphatase 130 45-117 U/L Total Protein 7.4 6.4-8.2 gm/dl Albumin 3.3 3.4-5.0 gm/dl Lipase 267 73-393 U/L Hepatitis C Antibody Screen NEG NEG Urine Color [place] Urine Appearance CLOUDY CLEAR Urine pH 5.0 4.5-7.5 Urine Specific [place] 1.034 1.000-1.030 Urine Protein TRACE NEG Urine Glucose (UA) NEG NEG Urine Ketones NEG NEG Urine Occult Blood NEG NEG Urine Nitrite NEG NEG Urine Bilirubin NEG NEG Urine Urobilinogen NEG NEG Urine Leukocyte Esterase NEG NEG Urine WBC (Auto) 1-5 0-5 /hpf Urine RBC (Auto) 0-4 0-4 /hpf Urine Hyaline Casts (Auto) 5-10 0-5 /lpf Urine Epithelial Cells (Auto) 20-30 0-5 /lpf Urine Bacteria (Auto) NEG NEG Assessment & Plan 08/13/16- acute nonperforated diverticulitis- improved with rehydration Cont IV atbx 3-5 days, clear liquids only (ordered) ambulate
[2016-08-13 06:12] LABS: ALB/GLOB RATIO 0.7 (0.9-2); BUN/CREATININE RATIO 18.9 (10-20); CALCIUM 8.1 mg/dl (8.5-10.1); MAGNESIUM 2.3 mg/dl (1.8-2.4); PHOSPHORUS 2.5 mg/dl (2.5-4.9); POTASSIUM 3.9 mmol/L (3.5-5.1)
[2016-08-13 07:30] VITALS: BP 119/72; PULSE 71; TEMP 37.6; O2SAT 91
[2016-08-13] MEDS: NSS + 20MEQ KCL 1000ML 1,000 ML IV SCH ×2 (08:37→20:49)
[2016-08-13] MEDS: CALCIUM 600MG + VIT D 400 IU TAB PO SCH (08:38)
[2016-08-13] MEDS: CEROVITE ADV FORMULA TAB PO SCH (08:38)
[2016-08-13] MEDS: PrednisoLONE ACET 1% OP SUSP 5 ML BTL OPR SCH ×3 (08:39→20:48)
[2016-08-13] MEDS: AMLODIPINE BESYLATE 5 MG TAB PO SCH (08:39)
[2016-08-13] MEDS: CARVEDILOL 6.25 MG TAB PO SCH ×2 (08:39→20:48)
[2016-08-13] MEDS: HEPARIN SOD 5000 UNIT/0.5 ML CARP SQ SCH ×2 (08:42→20:56)
[2016-08-13] MEDS ORDERED: GLUCOSAMINE CHONDROITIN VIT C PO SCH (09:00)
[2016-08-13] MEDS ORDERED: ZOLPIDEM TARTRATE 5 MG TAB PO PRN (14:15)
[2016-08-13 15:27] VITALS: BP 130/77; PULSE 67; TEMP 37.1; O2SAT 90
--- NOTE | 2016-08-13 16:57 | Progress Note ---
Subjective Date of Service: August 13, 2016. Subjective Pt evaluation today including: conversation w/ patient, physical exam, lab review, review of studies, review of inpatient medication list Saw/examined the patient in room 356 She's doing better today, abdominal pain is still there, but not as severe +BM x3 today no nausea/vomiting tolerating clears Problem List Medical Problems: (1) Atelectasis Status: Acute (2) Benign hypertension Status: Chronic (3) Degenerative disc disease Status: Chronic (4) Diverticulitis Status: Acute (5) Diverticulitis Status: Acute (6) Dyslipidemia Status: Chronic (7) Hypoxia Status: Acute (8) Lumbar degenerative disc disease Status: Acute (9) Postoperative back pain Status: Acute (10) Postoperative fever Status: Acute Review of Systems Constitutional: No chills, No fever Respiratory: No shortness of breath Cardiac: No chest pain Abdomen: + diarrhea, + pain, No GI bleeding, No constipation, No nausea, No vomiting Medications Current Inpatient Medications Medications (Trade) Dose Ordered Sig/Sia Route Start Time Stop Time Status Last Admin Dose Admin Acetaminophen (Tylenol Tab) 650 mg Q4H PRN PO 08/12/16 17:15 09/11/16 17:14 Al Hydrox/Mg Hydrox/Simethicone (Maalox Max Susp) 15 ml Q4H PRN PO 08/12/16 17:15 09/11/16 17:14 Magnesium Hydroxide (Milk Of Magnesia Susp) 30 ml Q6H PRN PO 08/12/16 17:15 09/11/16 17:14 Polyethylene (Miralax Powder Packet) 17 gm DAILY PRN PO 08/12/16 17:15 09/11/16 17:14 Ondansetron HCl (Zofran Inj) 4 mg Q6H PRN IV 08/12/16 17:15 09/11/16 17:14 Heparin Sodium (Porcine) 5000 unit 5,000 unit Q12H SQ 08/12/16 21:00 09/11/16 20:59 08/13/16 08:42 5,000 UNIT Potassium Chloride/Sodium Chloride (Nss + 20meq KCl 1000ml) 1,000 ml @ 80 mls/hr [id number] IV 08/12/16 20:00 09/11/16 19:59 08/13/16 08:37 80 MLS/HR Amlodipine Besylate (Norvasc Tab) 10 mg DAILY PO 08/13/16 09:00 09/12/16 08:59 08/13/16 08:39 10 MG Carvedilol (Coreg Tab) 6.25 mg BID PO 08/12/16 21:00 09/11/16 20:59 08/13/16 08:39 6.25 MG Levothyroxine Sodium (Synthroid Tab) 125 mcg DAILYBB PO 08/13/16 06:00 09/12/16 05:59 08/13/16 05:27 125 MCG Multivitamins/ Minerals (Multivitamin W/ Minerals Tab) 1 tab DAILY PO 08/13/16 09:00 09/12/16 08:59 08/13/16 08:38 1 TAB Oxycodone HCl (Roxicodone Immediate Rel Tab) 5 mg Q6H PRN PO 08/12/16 17:45 08/26/16 17:44 08/12/16 21:15 5 MG Prednisolone Acetate (Pred Forte 1% Oph Susp) 1 drops TID OPR 08/12/16 21:00 09/11/16 20:59 08/13/16 14:06 1 DROPS Calcium/Vitamin D (Caltrate Plus Tab) 1 tab DAILY PO 08/13/16 09:00 09/12/16 08:59 08/13/16 08:38 1 TAB Morphine Sulfate (MoRPHine SULFATE INJ) 1 mg Q4 PRN IV 08/12/16 18:00 08/26/16 17:59 Piperacillin Sod/ Tazobactam Sod 1 ea 1 ea UD PRN N/A 08/12/16 19:15 09/11/16 19:14 Piperacillin Sod/ Tazobactam Sod/ Dextrose (Zosyn Iv/D5 100ml) 115 ml @ 28.75 mls/ hr Q8@0600,1400,2200 IV 08/12/16 22:00 08/22/16 21:59 08/13/16 14:06 28.75 MLS/HR Zolpidem Tartrate (Ambien Tab) 5 mg HS PRN PO 08/13/16 14:15 09/12/16 14:14 Objective Vital Signs Date Time Temp Pulse Resp B/P Pulse Ox O2 Delivery O2 Flow Rate FiO2 08/13/16 15:27 37.1 67 18 130/77 90 Room Air 08/13/16 07:30 37.6 71 16 119/72 91 Room Air 08/13/16 07:30 Room Air 08/13/16 00:32 37.0 65 16 103/58 90 Room Air 08/12/16 23:40 Room Air 08/12/16 21:25 66 116/70 08/12/16 20:30 Room Air 08/12/16 18:39 37.2 73 14 142/71 93 Room Air 08/12/16 18:30 93 Room Air 08/12/16 17:32 87 20 111/60 92 Room Air Physical Exam General Appearance: no apparent distress Respiratory/Chest: no respiratory distress, no accessory muscle use Abdomen: normal bowel sounds, soft, + tenderness (mildly tender) Neurologic/Psychiatric: no motor/sensory deficits, alert, normal mood/affect Laboratory Results Last 24 Hours Test 08/12/16 17:30 08/13/16 05:15 Urine Color [place] Urine Appearance CLOUDY Urine pH 5.0 Urine Specific [place] 1.034 Urine Protein TRACE Urine Glucose (UA) NEG Urine Ketones NEG Urine Occult Blood NEG Urine Nitrite NEG Urine Bilirubin NEG Urine Urobilinogen NEG Urine Leukocyte Esterase NEG Urine WBC (Auto) 1-5 /hpf Urine RBC (Auto) 0-4 /hpf Urine Hyaline Casts (Auto) 5-10 /lpf Urine Epithelial Cells (Auto) 20-30 /lpf Urine Bacteria (Auto) NEG White Blood Count 8.91 K/uL Red Blood Count 3.71 M/uL Hemoglobin 10.7 g/dL Hematocrit 33.3 % Mean Corpuscular Volume 89.8 fL Mean Corpuscular Hemoglobin 28.8 pg Mean Corpuscular Hemoglobin Concent 32.1 g/dl RDW Standard Deviation 43.3 fL RDW Coefficient of Variation 13.2 % Platelet Count 168 K/uL Mean Platelet Volume 11.0 fL Sodium Level 137 mmol/L Potassium Level 3.9 mmol/L Chloride Level 103 mmol/L Carbon Dioxide Level 29 mmol/L Anion Gap 5.0 mmol/L Blood Urea Nitrogen 19 mg/dl Creatinine 1.00 mg/dl Est Creatinine Clear Calc Drug Dose 70.1 ml/min Estimated GFR () 66.1 Estimated GFR (Non- 57.0 BUN/Creatinine Ratio 18.9 Random Glucose 137 mg/dl Calcium Level 8.1 mg/dl Phosphorus Level 2.5 mg/dl Magnesium Level 2.3 mg/dl Total Bilirubin 1.0 mg/dl Aspartate Amino Transf (AST/SGOT) 57 U/L Alanine Aminotransferase (ALT/SGPT) 98 U/L Alkaline Phosphatase 120 U/L Total Protein 7.3 gm/dl Albumin 2.9 gm/dl Globulin 4.4 gm/dl Albumin/Globulin Ratio 0.7 Assessment and Plan This is a 71 year old female with a PMH of HTN, HLD, DM2, hypothyroid, recent cataract surgery, diverticulosis presented with acute proximal-mid colonic diverticulitis Acute Colonic Diverticulitis 08/13 appreciate gen surg input continue IV Zosyn for 3-5 days (day #2 today) clears 08/12 patient presented on 08/11 with diverticulitis was sent home with Cipro + Flagyl returned to the ER due to nausea/vomiting and could not keep anything down plan is to keep NPO, IVFs will cont IV Zosyn and switch to Augmentin on discharge IV morphine PRN general surgery consultation Acute Kidney Injury - resolved 08/13 creatinine down from 1.4 to 1.0 08/12 creatinine jumped from 0.9 to 1.4 secondary to nausea/vomiting/decreased PO intake give IVFs monitor creat Elevated LFTs - improving 08/13 improving today will recheck LFTs today 08/12 jump in AST, ALT, T .bili, Alk Phos secondary to infection or abx? CT abd did not show any issues with liver will recheck in AM hold statin HTN blood pressure stable hold Cozaar due to kidney injury hold HCTZ due to dehydration continue Coreg, Amlodipine DM2 Ha1c = 6.5% hold oral agents hold insulin due to NPO Hypothyroid cont. Synthroid DVT ppx subq heparin FULL CODE
[2016-08-13 20:47] VITALS: BP 139/88; PULSE 69
[2016-08-13] MEDS: OXYCODONE HCL IR 5 MG TAB (IMMEDIATE RELEASE) PO PRN (22:06)
[2016-08-13 23:15] VITALS: BP 120/68; PULSE 70; TEMP 37.4; O2SAT 91
[2016-08-14] MEDS: PIPERACILL/TAZOBAC IV 3.375 GM in DEXTROSE 5% 100ML IV SCH ×3 (05:45→21:48)
[2016-08-14] MEDS: LEVOTHYROXINE 125 MCG TAB PO SCH (05:46)
[2016-08-14 06:04] LABS: HEMATOCRIT 34.4 % (37-47); MEAN CELL VOLUME 89.4 fL (80-100); MEAN CORPUSCULAR HEMOGLOBIN 28.1 pg (25-34); MEAN CORPUSCULAR HGB CONC 31.4 g/dl (32-36); MEAN PLATELET VOLUME 11.1 fL (7.4-10.4); PLATELET COUNT 212 K/uL (130-400); RED BLOOD COUNT 3.85 M/uL (4.2-5.4); WHITE BLOOD COUNT 6.16 K/uL (4.8-10.8)
--- NOTE | 2016-08-14 06:10 | Surgery Progress Note ---
Surgery Progress Note Date of Service August 14, 2016. Subjective less pain, tolerating full liquids Objective Vital Signs: Date Time Temp Pulse Resp B/P Pulse Ox O2 Delivery O2 Flow Rate FiO2 08/14/16 00:10 Room Air 08/13/16 23:15 37.4 70 16 120/68 91 Room Air 08/13/16 20:47 69 139/88 08/13/16 15:45 Room Air 08/13/16 15:27 37.1 67 18 130/77 90 Room Air 08/13/16 07:30 37.6 71 16 119/72 91 Room Air 08/13/16 07:30 Room Air General Appearance: no apparent distress Abdomen: soft, + tenderness Laboratory Results: Results Past 24 Hours Test 08/14/16 05:30 Range/Units White Blood Count 6.16 4.8-10.8 K/uL Red Blood Count 3.85 4.2-5.4 M/uL Hemoglobin 10.8 12.0-16.0 g/dL Hematocrit 34.4 37-47 % Mean Corpuscular Volume 89.4 80-100 fL Mean Corpuscular Hemoglobin 28.1 25-34 pg Mean Corpuscular Hemoglobin Concent 31.4 32-36 g/dl RDW Standard Deviation 42.7 36.4-46.3 fL RDW Coefficient of Variation 13.2 11.5-14.5 % Platelet Count 212 130-400 K/uL Mean Platelet Volume 11.1 7.4-10.4 fL Assessment & Plan 08/14/16- slowly improving- will adv to full liquids for lunch- cont IV atbx- probable d/c Wed if cont to do well 08/13/16- acute nonperforated diverticulitis- improved with rehydration Cont IV atbx 3-5 days, clear liquids only (ordered) ambulate 08/13/16- acute nonperforated diverticulitis- improved with rehydration Cont IV atbx 3-5 days, clear liquids only (ordered) ambulate
[2016-08-14 06:45] LABS: CREATININE 0.75 mg/dl (0.60-1.20)
[2016-08-14 06:46] LABS: ALB/GLOB RATIO 0.8 (0.9-2); BUN/CREATININE RATIO 13.5 (10-20); CALCIUM 8.3 mg/dl (8.5-10.1); POTASSIUM 3.9 mmol/L (3.5-5.1)
[2016-08-14 07:29] VITALS: BP 150/79; PULSE 64; TEMP 36.9; O2SAT 94
[2016-08-14] MEDS: NSS + 20MEQ KCL 1000ML 1,000 ML IV SCH ×2 (08:46→21:46)
[2016-08-14] MEDS: AMLODIPINE BESYLATE 5 MG TAB PO SCH (09:52)
[2016-08-14] MEDS: CARVEDILOL 6.25 MG TAB PO SCH ×2 (09:52→21:01)
[2016-08-14] MEDS: CEROVITE ADV FORMULA TAB PO SCH (09:53)
[2016-08-14] MEDS: PrednisoLONE ACET 1% OP SUSP 5 ML BTL OPR SCH ×3 (09:53→21:01)
[2016-08-14] MEDS: CALCIUM 600MG + VIT D 400 IU TAB PO SCH (09:53)
[2016-08-14] MEDS: HEPARIN SOD 5000 UNIT/0.5 ML CARP SQ SCH ×2 (09:56→21:01)
[2016-08-14 14:09] VITALS: Ht 177.8 cm; Wt 109.4 kg
[2016-08-14 15:07] VITALS: BP 148/83; PULSE 64; TEMP 36.9; O2SAT 94
--- NOTE | 2016-08-14 16:31 | Progress Note ---
Subjective Date of Service: August 14, 2016. Subjective Pt evaluation today including: conversation w/ patient, physical exam, lab review, review of studies, review of inpatient medication list Saw/examined the patient in room 356 She's doing okay, some pain at the L side of the abdomen, but improving no fevers/chills tolerating full liquid diet Problem List Medical Problems: (1) Atelectasis Status: Acute (2) Benign hypertension Status: Chronic (3) Degenerative disc disease Status: Chronic (4) Diverticulitis Status: Acute (5) Diverticulitis Status: Acute (6) Dyslipidemia Status: Chronic (7) Hypoxia Status: Acute (8) Lumbar degenerative disc disease Status: Acute (9) Postoperative back pain Status: Acute (10) Postoperative fever Status: Acute Review of Systems Constitutional: No chills, No fever Respiratory: No shortness of breath Cardiac: No chest pain Abdomen: + diarrhea, + pain, No GI bleeding, No constipation, No nausea, No vomiting Medications Current Inpatient Medications Medications (Trade) Dose Ordered Sig/Sia Route Start Time Stop Time Status Last Admin Dose Admin Acetaminophen (Tylenol Tab) 650 mg Q4H PRN PO 08/12/16 17:15 09/11/16 17:14 08/14/16 13:13 650 MG Al Hydrox/Mg Hydrox/Simethicone (Maalox Max Susp) 15 ml Q4H PRN PO 08/12/16 17:15 09/11/16 17:14 Magnesium Hydroxide (Milk Of Magnesia Susp) 30 ml Q6H PRN PO 08/12/16 17:15 09/11/16 17:14 Polyethylene (Miralax Powder Packet) 17 gm DAILY PRN PO 08/12/16 17:15 09/11/16 17:14 Ondansetron HCl (Zofran Inj) 4 mg Q6H PRN IV 08/12/16 17:15 09/11/16 17:14 Heparin Sodium (Porcine) 5000 unit 5,000 unit Q12H SQ 08/12/16 21:00 09/11/16 20:59 08/14/16 09:56 5,000 UNIT Potassium Chloride/Sodium Chloride (Nss + 20meq KCl 1000ml) 1,000 ml @ 80 mls/hr [id number] IV 08/12/16 20:00 09/11/16 19:59 08/14/16 08:46 80 MLS/HR Amlodipine Besylate (Norvasc Tab) 10 mg DAILY PO 08/13/16 09:00 09/12/16 08:59 08/14/16 09:52 10 MG Carvedilol (Coreg Tab) 6.25 mg BID PO 08/12/16 21:00 09/11/16 20:59 08/14/16 09:52 6.25 MG Levothyroxine Sodium (Synthroid Tab) 125 mcg DAILYBB PO 08/13/16 06:00 09/12/16 05:59 08/14/16 05:46 125 MCG Multivitamins/ Minerals (Multivitamin W/ Minerals Tab) 1 tab DAILY PO 08/13/16 09:00 09/12/16 08:59 08/14/16 09:53 1 TAB Oxycodone HCl (Roxicodone Immediate Rel Tab) 5 mg Q6H PRN PO 08/12/16 17:45 08/26/16 17:44 08/13/16 22:06 5 MG Prednisolone Acetate (Pred Forte 1% Oph Susp) 1 drops TID OPR 08/12/16 21:00 09/11/16 20:59 08/14/16 13:11 1 DROPS Calcium/Vitamin D (Caltrate Plus Tab) 1 tab DAILY PO 08/13/16 09:00 09/12/16 08:59 08/14/16 09:53 1 TAB Morphine Sulfate (MoRPHine SULFATE INJ) 1 mg Q4 PRN IV 08/12/16 18:00 08/26/16 17:59 Piperacillin Sod/ Tazobactam Sod 1 ea 1 ea UD PRN N/A 08/12/16 19:15 09/11/16 19:14 Piperacillin Sod/ Tazobactam Sod/ Dextrose (Zosyn Iv/D5 100ml) 115 ml @ 28.75 mls/ hr Q8@0600,1400,2200 IV 08/12/16 22:00 08/22/16 21:59 08/14/16 13:11 28.75 MLS/HR Zolpidem Tartrate (Ambien Tab) 5 mg HS PRN PO 08/13/16 14:15 09/12/16 14:14 Objective Vital Signs Date Time Temp Pulse Resp B/P Pulse Ox O2 Delivery O2 Flow Rate FiO2 08/14/16 15:07 36.9 64 18 148/83 94 Room Air 08/14/16 10:11 Room Air 08/14/16 07:29 36.9 64 20 150/79 94 Room Air 08/14/16 00:10 Room Air 08/13/16 23:15 37.4 70 16 120/68 91 Room Air 08/13/16 20:47 69 139/88 Physical Exam General Appearance: no apparent distress Respiratory/Chest: no respiratory distress, no accessory muscle use Abdomen: normal bowel sounds, soft, + tenderness Laboratory Results Last 24 Hours Test 08/14/16 05:30 White Blood Count 6.16 K/uL Red Blood Count 3.85 M/uL Hemoglobin 10.8 g/dL Hematocrit 34.4 % Mean Corpuscular Volume 89.4 fL Mean Corpuscular Hemoglobin 28.1 pg Mean Corpuscular Hemoglobin Concent 31.4 g/dl RDW Standard Deviation 42.7 fL RDW Coefficient of Variation 13.2 % Platelet Count 212 K/uL Mean Platelet Volume 11.1 fL Sodium Level 142 mmol/L Potassium Level 3.9 mmol/L Chloride Level 108 mmol/L Carbon Dioxide Level 27 mmol/L Anion Gap 7.0 mmol/L Blood Urea Nitrogen 10 mg/dl Creatinine 0.75 mg/dl Est Creatinine Clear Calc Drug Dose 93.5 ml/min Estimated GFR () 93.6 Estimated GFR (Non- 80.8 BUN/Creatinine Ratio 13.5 Random Glucose 117 mg/dl Calcium Level 8.3 mg/dl Total Bilirubin 0.5 mg/dl Aspartate Amino Transf (AST/SGOT) 34 U/L Alanine Aminotransferase (ALT/SGPT) 69 U/L Alkaline Phosphatase 125 U/L Total Protein 6.3 gm/dl Albumin 2.8 gm/dl Globulin 3.5 gm/dl Albumin/Globulin Ratio 0.8 Assessment and Plan This is a 71 year old female with a PMH of HTN, HLD, DM2, hypothyroid, recent cataract surgery, diverticulosis presented with acute proximal-mid colonic diverticulitis Acute Colonic Diverticulitis 08/14 appreciate surgery input two more days of IV abx. as per surgery now on full liquid diet 08/13 appreciate gen surg input continue IV Zosyn for 3-5 days (day #2 today) clears 08/12 patient presented on 08/11 with diverticulitis was sent home with Cipro + Flagyl returned to the ER due to nausea/vomiting and could not keep anything down plan is to keep NPO, IVFs will cont IV Zosyn and switch to Augmentin on discharge IV morphine PRN general surgery consultation Acute Kidney Injury - resolved 08/13 creatinine down from 1.4 to 1.0 08/12 creatinine jumped from 0.9 to 1.4 secondary to nausea/vomiting/decreased PO intake give IVFs monitor creat Elevated LFTs - improving 08/13 improving today will recheck LFTs today 08/12 jump in AST, ALT, T .bili, Alk Phos secondary to infection or abx? CT abd did not show any issues with liver will recheck in AM hold statin HTN blood pressure stable hold Cozaar due to kidney injury hold HCTZ due to dehydration continue Coreg, Amlodipine DM2 Ha1c = 6.5% hold oral agents hold insulin due to NPO Hypothyroid cont. Synthroid DVT ppx subq heparin FULL CODE
[2016-08-14 20:49] VITALS: BP 159/92; PULSE 65
[2016-08-14] MEDS: OXYCODONE HCL IR 5 MG TAB (IMMEDIATE RELEASE) PO PRN (21:48)
[2016-08-14 23:00] VITALS: BP 125/70; PULSE 64; TEMP 36.5; O2SAT 92
[2016-08-15] MEDS: PIPERACILL/TAZOBAC IV 3.375 GM in DEXTROSE 5% 100ML IV SCH ×2 (05:38→13:24)
[2016-08-15] MEDS: LEVOTHYROXINE 125 MCG TAB PO SCH (05:38)
[2016-08-15 06:43] LABS: HEMATOCRIT 34.7 % (37-47); MEAN CELL VOLUME 88.5 fL (80-100); MEAN CORPUSCULAR HEMOGLOBIN 29.1 pg (25-34); MEAN CORPUSCULAR HGB CONC 32.9 g/dl (32-36); MEAN PLATELET VOLUME 10.6 fL (7.4-10.4); PLATELET COUNT 250 K/uL (130-400); RED BLOOD COUNT 3.92 M/uL (4.2-5.4)
[2016-08-15 07:21] LABS: BUN/CREATININE RATIO 7.6 (10-20); CALCIUM 8.7 mg/dl (8.5-10.1); CREATININE 0.78 mg/dl (0.60-1.20); POTASSIUM 3.7 mmol/L (3.5-5.1)
[2016-08-15 07:24] LABS: ALB/GLOB RATIO 0.8 (0.9-2)
[2016-08-15 07:43] VITALS: BP 146/82; PULSE 66; TEMP 37.1
[2016-08-15 08:18] VITALS: O2SAT 96
[2016-08-15] MEDS: CALCIUM 600MG + VIT D 400 IU TAB PO SCH (08:50)
[2016-08-15] MEDS: AMLODIPINE BESYLATE 5 MG TAB PO SCH (08:50)
[2016-08-15] MEDS: CARVEDILOL 6.25 MG TAB PO SCH (08:50)
[2016-08-15] MEDS: CEROVITE ADV FORMULA TAB PO SCH (08:50)
[2016-08-15] MEDS: PrednisoLONE ACET 1% OP SUSP 5 ML BTL OPR SCH ×2 (08:50→13:24)
[2016-08-15] MEDS: HEPARIN SOD 5000 UNIT/0.5 ML CARP SQ SCH (08:55)
--- NOTE | 2016-08-15 09:11 | Surgery Progress Note ---
Surgery Progress Note Date of Service August 15, 2016. Subjective doing better- on full liquids today Objective Vital Signs: Date Time Temp Pulse Resp B/P Pulse Ox O2 Delivery O2 Flow Rate FiO2 08/15/16 08:18 96 Room Air 08/15/16 07:43 37.1 66 16 146/82 Room Air 08/15/16 07:40 Room Air 08/14/16 23:20 Room Air 08/14/16 23:00 36.5 64 16 125/70 92 Room Air 08/14/16 20:49 65 159/92 08/14/16 15:45 Room Air 08/14/16 15:07 36.9 64 18 148/83 94 Room Air 08/14/16 10:11 Room Air General Appearance: no apparent distress Respiratory/Chest: no respiratory distress Abdomen: soft Laboratory Results: Results Past 24 Hours Test 08/15/16 06:27 Range/Units White Blood Count 6.70 4.8-10.8 K/uL Red Blood Count 3.92 4.2-5.4 M/uL Hemoglobin 11.4 12.0-16.0 g/dL Hematocrit 34.7 37-47 % Mean Corpuscular Volume 88.5 80-100 fL Mean Corpuscular Hemoglobin 29.1 25-34 pg Mean Corpuscular Hemoglobin Concent 32.9 32-36 g/dl RDW Standard Deviation 42.3 36.4-46.3 fL RDW Coefficient of Variation 13.1 11.5-14.5 % Platelet Count 250 130-400 K/uL Mean Platelet Volume 10.6 7.4-10.4 fL Sodium Level 142 136-145 mmol/L Potassium Level 3.7 3.5-5.1 mmol/L Chloride Level 107 98-107 mmol/L Carbon Dioxide Level 28 21-32 mmol/L Anion Gap 7.0 3-11 mmol/L Blood Urea Nitrogen 6 7-18 mg/dl Creatinine 0.78 0.60-1.20 mg/dl Est Creatinine Clear Calc Drug Dose 89.9 ml/min Estimated GFR () 89.3 Estimated GFR (Non- 77.0 BUN/Creatinine Ratio 7.6 10-20 Random Glucose 121 70-99 mg/dl Calcium Level 8.7 8.5-10.1 mg/dl Total Bilirubin 0.5 0.2-1 mg/dl Aspartate Amino Transf (AST/SGOT) 18 15-37 U/L Alanine Aminotransferase (ALT/SGPT) 56 12-78 U/L Alkaline Phosphatase 132 45-117 U/L Total Protein 6.8 6.4-8.2 gm/dl Albumin 3.1 3.4-5.0 gm/dl Globulin 3.7 2.5-4.0 gm/dl Albumin/Globulin Ratio 0.8 0.9-2 Assessment & Plan 08/15/16- slowly adv diet to low fiber tomorrow- possible d/c later tomorrow on po atbx- would f/u with GI- has seen Dr Chatman in past- can also see his [employer] 08/14/16- slowly improving- will adv to full liquids for lunch- cont IV atbx- probable d/c Wed if cont to do well 08/13/16- acute nonperforated diverticulitis- improved with rehydration Cont IV atbx 3-5 days, clear liquids only (ordered) ambulate 08/14/16- slowly improving- will adv to full liquids for lunch- cont IV atbx- probable d/c Wed if cont to do well 08/13/16- acute nonperforated diverticulitis- improved with rehydration Cont IV atbx 3-5 days, clear liquids only (ordered) ambulate
[2016-08-15] MEDS: NSS + 20MEQ KCL 1000ML 1,000 ML IV SCH (09:59)
[2016-08-15 11:38] VITALS: BP 158/84; PULSE 62; TEMP 37; O2SAT 94
--- NOTE | 2016-08-15 12:10 | Progress Note ---
Subjective Date of Service: August 15, 2016. Subjective Pt evaluation today including: conversation w/ patient, physical exam, lab review, review of studies, review of inpatient medication list Saw/examined the patient in room 356 Doing well, no problems/issues to note today tolerating full liquids; no fevers/chills Problem List Medical Problems: (1) Atelectasis Status: Acute (2) Benign hypertension Status: Chronic (3) Degenerative disc disease Status: Chronic (4) Diverticulitis Status: Acute (5) Diverticulitis Status: Acute (6) Dyslipidemia Status: Chronic (7) Hypoxia Status: Acute (8) Lumbar degenerative disc disease Status: Acute (9) Postoperative back pain Status: Acute (10) Postoperative fever Status: Acute Review of Systems Constitutional: No chills, No fever Abdomen: + pain (mild, crampy), No GI bleeding, No constipation, No diarrhea, No nausea, No vomiting Medications Current Inpatient Medications Medications (Trade) Dose Ordered Sig/Sia Route Start Time Stop Time Status Last Admin Dose Admin Acetaminophen (Tylenol Tab) 650 mg Q4H PRN PO 08/12/16 17:15 09/11/16 17:14 08/14/16 13:13 650 MG Al Hydrox/Mg Hydrox/Simethicone (Maalox Max Susp) 15 ml Q4H PRN PO 08/12/16 17:15 09/11/16 17:14 Magnesium Hydroxide (Milk Of Magnesia Susp) 30 ml Q6H PRN PO 08/12/16 17:15 09/11/16 17:14 Polyethylene (Miralax Powder Packet) 17 gm DAILY PRN PO 08/12/16 17:15 09/11/16 17:14 Ondansetron HCl (Zofran Inj) 4 mg Q6H PRN IV 08/12/16 17:15 09/11/16 17:14 Heparin Sodium (Porcine) 5000 unit 5,000 unit Q12H SQ 08/12/16 21:00 09/11/16 20:59 08/15/16 08:55 5,000 UNIT Potassium Chloride/Sodium Chloride (Nss + 20meq KCl 1000ml) 1,000 ml @ 80 mls/hr [id number] IV 08/12/16 20:00 09/11/16 19:59 08/15/16 09:59 80 MLS/HR Amlodipine Besylate (Norvasc Tab) 10 mg DAILY PO 08/13/16 09:00 09/12/16 08:59 08/15/16 08:50 10 MG Carvedilol (Coreg Tab) 6.25 mg BID PO 08/12/16 21:00 09/11/16 20:59 08/15/16 08:50 6.25 MG Levothyroxine Sodium (Synthroid Tab) 125 mcg DAILYBB PO 08/13/16 06:00 09/12/16 05:59 08/15/16 05:38 125 MCG Multivitamins/ Minerals (Multivitamin W/ Minerals Tab) 1 tab DAILY PO 08/13/16 09:00 09/12/16 08:59 08/15/16 08:50 1 TAB Oxycodone HCl (Roxicodone Immediate Rel Tab) 5 mg Q6H PRN PO 08/12/16 17:45 08/26/16 17:44 08/14/16 21:48 5 MG Prednisolone Acetate (Pred Forte 1% Oph Susp) 1 drops TID OPR 08/12/16 21:00 09/11/16 20:59 08/15/16 08:50 1 DROPS Calcium/Vitamin D (Caltrate Plus Tab) 1 tab DAILY PO 08/13/16 09:00 09/12/16 08:59 08/15/16 08:50 1 TAB Morphine Sulfate (MoRPHine SULFATE INJ) 1 mg Q4 PRN IV 08/12/16 18:00 08/26/16 17:59 Piperacillin Sod/ Tazobactam Sod 1 ea 1 ea UD PRN N/A 08/12/16 19:15 09/11/16 19:14 Piperacillin Sod/ Tazobactam Sod/ Dextrose (Zosyn Iv/D5 100ml) 115 ml @ 28.75 mls/ hr Q8@0600,1400,2200 IV 08/12/16 22:00 08/22/16 21:59 08/15/16 05:38 28.75 MLS/HR Zolpidem Tartrate (Ambien Tab) 5 mg HS PRN PO 08/13/16 14:15 09/12/16 14:14 Objective Vital Signs Date Time Temp Pulse Resp B/P Pulse Ox O2 Delivery O2 Flow Rate FiO2 08/15/16 11:38 37.0 62 18 158/84 94 Room Air 08/15/16 08:18 96 Room Air 08/15/16 07:43 37.1 66 16 146/82 Room Air 08/15/16 07:40 Room Air 08/14/16 23:20 Room Air 08/14/16 23:00 36.5 64 16 125/70 92 Room Air 08/14/16 20:49 65 159/92 08/14/16 15:45 Room Air 08/14/16 15:07 36.9 64 18 148/83 94 Room Air Physical Exam General Appearance: no apparent distress Respiratory/Chest: no respiratory distress, no accessory muscle use Cardiovascular: no edema Abdomen: normal bowel sounds, non tender, soft Extremities: normal inspection, no pedal edema Neurologic/Psychiatric: no motor/sensory deficits, alert, normal mood/affect Laboratory Results Last 24 Hours Test 08/15/16 00:00 08/15/16 06:27 Stool Occult Blood NEGATIVE White Blood Count 6.70 K/uL Red Blood Count 3.92 M/uL Hemoglobin 11.4 g/dL Hematocrit 34.7 % Mean Corpuscular Volume 88.5 fL Mean Corpuscular Hemoglobin 29.1 pg Mean Corpuscular Hemoglobin Concent 32.9 g/dl RDW Standard Deviation 42.3 fL RDW Coefficient of Variation 13.1 % Platelet Count 250 K/uL Mean Platelet Volume 10.6 fL Sodium Level 142 mmol/L Potassium Level 3.7 mmol/L Chloride Level 107 mmol/L Carbon Dioxide Level 28 mmol/L Anion Gap 7.0 mmol/L Blood Urea Nitrogen 6 mg/dl Creatinine 0.78 mg/dl Est Creatinine Clear Calc Drug Dose 89.9 ml/min Estimated GFR () 89.3 Estimated GFR (Non- 77.0 BUN/Creatinine Ratio 7.6 Random Glucose 121 mg/dl Calcium Level 8.7 mg/dl Total Bilirubin 0.5 mg/dl Aspartate Amino Transf (AST/SGOT) 18 U/L Alanine Aminotransferase (ALT/SGPT) 56 U/L Alkaline Phosphatase 132 U/L Total Protein 6.8 gm/dl Albumin 3.1 gm/dl Globulin 3.7 gm/dl Albumin/Globulin Ratio 0.8 Assessment and Plan This is a 71 year old female with a PMH of HTN, HLD, DM2, hypothyroid, recent cataract surgery, diverticulosis presented with acute proximal-mid colonic diverticulitis Acute Colonic Diverticulitis 08/15 appreciate general surgery input tolerating full liquid can d/c after lunch, if no pain will d/c with Cipro + Flagyl for 7 more days outpatient PCP and GI follow-up 08/14 appreciate surgery input two more days of IV abx. as per surgery now on full liquid diet 08/13 appreciate gen surg input continue IV Zosyn for 3-5 days (day #2 today) clears 08/12 patient presented on 08/11 with diverticulitis was sent home with Cipro + Flagyl returned to the ER due to nausea/vomiting and could not keep anything down plan is to keep NPO, IVFs will cont IV Zosyn and switch to Augmentin on discharge IV morphine PRN general surgery consultation Acute Kidney Injury - resolved 08/13 creatinine down from 1.4 to 1.0 08/12 creatinine jumped from 0.9 to 1.4 secondary to nausea/vomiting/decreased PO intake give IVFs monitor creat Elevated LFTs - improving 08/13 improving today will recheck LFTs today 08/12 jump in AST, ALT, T .bili, Alk Phos secondary to infection or abx? CT abd did not show any issues with liver will recheck in AM hold statin HTN blood pressure stable hold Cozaar due to kidney injury hold HCTZ due to dehydration continue Coreg, Amlodipine DM2 Ha1c = 6.5% hold oral agents hold insulin due to NPO Hypothyroid cont. Synthroid DVT ppx subq heparin FULL CODE
[2016-08-15] MEDS ORDERED: METR-162 PO (12:12)
[2016-08-15] MEDS ORDERED: CIPR-255 PO (12:12)
--- NOTE | 2016-08-15 12:16 | Discharge Instructions ---
Discharge Instructions Date of Service August 15, 2016. Admission Reason for Admission: Diverticulis Discharge Discharge Diagnosis / Problem: Acute Colonic Diverticulitis Discharge Goals Goal(s): Decrease discomfort, Improve function, Diagnostic testing, Therapeutic intervention Activity Recommendations Activity Limitations: resume your previous activity . Instructions / Follow-Up Instructions / Follow-Up Please follow-up with Dr. Angel on August 18 at 12:45PM * Take Cipro and Flagyl for 7 days, as prescribed * You should have a follow-up with GI in 4-6 weeks * Follow a low fiber diet for two weeks Current Hospital Diet Patient's current hospital diet: Full Liquid Diet, Low Fiber Diet Discharge Diet Recommended Diet: Low Fiber Diet Pending Studies Studies pending at discharge: no Medical Emergencies . Who to Call and When: Medical Emergencies: If at any time you feel your situation is an emergency, please call 911 immediately. . Non-Emergent Contact Non-Emergency issues call your: Primary Care Provider . . "Provider Documentation" section prepared by Megan Clark. . VTE Core Measure Inpt VTE Proph given/why not?: Unfractionated heparin SQ
--- NOTE | 2016-08-15 12:17 | Discharge Summary ---
Discharge Summary Date of Service August 15, 2016. Discharge Summary Admission Date: August 12, 2016 at 17:39 Discharge Date: August 15, 2016 Discharge Disposition: Home Principal Diagnosis: Acute colonic diverticulitis Medication Reconciliation Continued Medications: Amlodipine (Norvasc) 10 Mg Tab 10 MG PO DAILY, TAB Atorvastatin (Lipitor) 10 Mg Tab 10 MG PO DAILY, TAB Calcium Carbonate-Vitamin D (Oscal 500/200 D-3) 1 Tab Tab 1 TAB PO DAILY Carvedilol (Coreg) 6.25 Mg Tab 6.25 MG PO BID, TAB Ciprofloxacin Hcl (Cipro) 500 Mg Tab 500 MG PO BID for 7 Days, #14 TAB (This prescription has been renewed) Cyclobenzaprine Hcl (Flexeril) 5 Mg Tab 5 MG PO TID PRN for Muscle Spasms, TAB PRN Xlehlqssnch-Plrujygjmse-Nee C- (Glucosamine Chondroitin) 1 Cap Cap 1 CAP PO DAILY Hydrochlorothiazide (Hctz) 25 Mg Tab 25 MG PO 2XWK, TAB SUNDAY AND SUNDAY. Levothyroxine Sodium (Levothyroxine Sodium) 125 Mcg Tab 1 TAB PO DAILY for 90 Days, #90 TAB 3 Refills Losartan Potassium (Cozaar) 100 Mg Tab 100 MG PO DAILY, TAB Metformin Hcl (Glucophage) 500 Mg Tab 500 MG PO DAILY, TAB Methocarbamol (Robaxin) 500 Mg Tab 500 MG PO TID PRN for UNDECIDED, TAB Metronidazole (Flagyl) 500 Mg Tab 1 TAB PO TID for 7 Days, #21 TAB (This prescription has been renewed) Ocuvite Preservision (Ocuvite Preservision) 1 Tab Tab 1 TAB PO DAILY, TAB Oxycodone Immediate Rel Tab (Roxicodone Ir) 5 Mg Tab 5 MG PO Q6H PRN for Pain, #15 TAB Prednisolone Acetate (Ophth) (Omnipred) 1 % Ama 1 DROPS OPR TID, #5 ML 1 Refill 1 DROP OPR DAILY 3 DROPS OPL Admission Information HPI (per Admitting provider): This is a 71 year old female with a PMH of HTN, HLD, DM2, hypothyroid, recent cataract surgery, diverticulosis presented to the ER on 08/11 with acute diverticulitis - was told she should stay, but she wanted to go home and manage as an outpatient - she was prescribed Cipro + Flagyl and pain medications; she went home, but developed fevers, nausea/vomiting and could not keep anything down by mouth. She came back to the ER today; received Zofran, as well as Zosyn and Daptomycin and 1L of fluids - she feels better. Physical Exam (per Admitting): General Appearance: no apparent distress Head: normocephalic, atraumatic Eyes: normal inspection ENT: hearing grossly normal Neck: supple Respiratory/Chest: chest non-tender, lungs clear, normal breath sounds, no respiratory distress, no accessory muscle use Cardiovascular: regular rate, rhythm, no edema, no gallop, no JVD, no murmur , normal peripheral pulses Abdomen/GI: normal bowel sounds, soft, + tenderness (worse at the L upper quadrant) Back: no CVA tenderness Extremities/Musculoskelatal: normal inspection, no calf tenderness, normal capillary refill, no pedal edema, normal range of motion Neurologic/Psych: no motor/sensory deficits, alert, normal mood/affect Skin: normal color Lymphatic: no adenopathy Hospital Course This is a 71 year old female with a PMH of HTN, HLD, DM2, hypothyroid, recent cataract surgery, diverticulosis presented with acute proximal-mid colonic diverticulitis Acute Colonic Diverticulitis 08/15 appreciate general surgery input tolerating full liquid can d/c after lunch, if no pain will d/c with Cipro + Flagyl for 7 more days outpatient PCP and GI follow-up 08/14 appreciate surgery input two more days of IV abx. as per surgery now on full liquid diet 08/13 appreciate gen surg input continue IV Zosyn for 3-5 days (day #2 today) clears 08/12 patient presented on 08/11 with diverticulitis was sent home with Cipro + Flagyl returned to the ER due to nausea/vomiting and could not keep anything down plan is to keep NPO, IVFs will cont IV Zosyn and switch to Augmentin on discharge IV morphine PRN general surgery consultation Acute Kidney Injury - resolved 08/13 creatinine down from 1.4 to 1.0 08/12 creatinine jumped from 0.9 to 1.4 secondary to nausea/vomiting/decreased PO intake give IVFs monitor creat Elevated LFTs - improving 08/13 improving today will recheck LFTs today 08/12 jump in AST, ALT, T .bili, Alk Phos secondary to infection or abx? CT abd did not show any issues with liver will recheck in AM hold statin HTN blood pressure stable hold Cozaar due to kidney injury hold HCTZ due to dehydration continue Coreg, Amlodipine DM2 Ha1c = 6.5% hold oral agents hold insulin due to NPO Hypothyroid cont. Synthroid DVT ppx subq heparin FULL CODE Total time spent on discharge = 33 minutes This includes examination of the patient, discharge planning, medication reconciliation, and communication with other providers. Discharge Instructions Please follow-up with Dr. Angel on August 18 at 12:45PM * Take Cipro and Flagyl for 7 days, as prescribed * You should have a follow-up with GI in 4-6 weeks * Follow a low fiber diet for two weeks Additional Copies To Ran Angel M.D.
[2016-08-15 12:34] VITALS: BP 158/84; PULSE 62; TEMP 37; O2SAT 94
== END 2016-08-15 14:02 | disposition home or self-care (01) | DRG 391 ==
LOC: ENRESERVDT → ENRESERVTM → C.EDB 15:49 → C.MSW 17:39
PROVIDERS: ADMIT Family Medicine; ATTEND Internal Medicine
DX: K57.32 Diverticulitis of large intestine without perforation or abscess without bleeding (principal); J96.00 Acute respiratory failure, unspecified whether with hypoxia or hypercapnia; N17.9 Acute kidney failure, unspecified; E86.0 Dehydration; R11.2 Nausea with vomiting, unspecified; R94.5 Abnormal results of liver function studies; I10 Essential (primary) hypertension; E78.5 Hyperlipidemia, unspecified; E11.9 Type 2 diabetes mellitus without complications; E03.9 Hypothyroidism, unspecified; Z87.891 Personal history of nicotine dependence; Z79.84 Long term (current) use of oral hypoglycemic drugs; Z79.891 Long term (current) use of opiate analgesic; Z79.899 Other long term (current) drug therapy; D72.829 Elevated white blood cell count, unspecified; Z83.3 Family history of diabetes mellitus; Z82.49 Family history of ischemic heart disease and other diseases of the circulatory system

== ENCOUNTER 2022-08-19 13:34 | Inpatient (IN) ==
[2022-08-19] MEDS ORDERED: ACETAMINOPHEN 1,000 MG/100 ML VIAL IV STA (13:49)
[2022-08-19] MEDS ORDERED: SODIUM CHLORIDE 0.9% 1000ML 2,000 ML IV ONE (13:49)
--- NOTE | 2022-08-19 14:05 | XRay Report ---
XR chest 1V portable HISTORY: 77 years-old Female Sepsis COMPARISON: 08/18/2022 TECHNIQUE: AP view of the chest FINDINGS: Cardiac silhouette is enlarged. No pneumothorax, pleural effusion, airspace consolidation or overt pu lmonary edema. Degenerative changes of the shoulders and spine. IMPRESSION: No acute process. ACT 112: Negative or not required by law. The above report was generated using voice recognition software. It may contain grammatical, syntax o r spelling errors. Electronically signed by: Garry Rosenthal M.D. 08/19/2022 2:04 PM
[2022-08-19] MEDS ORDERED: PIPERACILLIN/TAZOBACTAM 4.5 GM in DEXTROSE 5% 100 ML IV ONE (14:16)
--- NOTE | 2022-08-19 14:21 | Emergency Department Note ---
Impression & Plan SIRS (systemic inflammatory response syndrome), Cellulitis, Urinary tract infection, Peptic ulcer disease ED Provider Note NAME: LUZ LARRY AGE: 77 SEX: F ARRIVES VIA: Ambulance INFORMANT: Patient ED PROVIDER(S): Jaswant Bradford MD CHIEF COMPLAINT: Fever, cellulitis, confusion PLAN: Disposition: Admit MEDICAL DECISION MAKING: The patient is a pleasant 77-year-old woman with a past medical history of hypertension, hyperlipidemia, diabetes who presents to the emergency department via EMS for evaluation of fever that has been ongoing for the past week in the setting of being seen emergency department yesterday for similar symptoms where she was diagnosed with cellulitis and started on doxycycline. She reports taking the antibiotics yesterday but has not felt any improvement. She is a poor historian at this time and has difficulty explaining the timing of her symptoms and admits that she feels confused. Patient had a CT scan of her abdomen pelvis yesterday that did not show acute abnormalities. On arrival to the emergency department the patient is fatigued, uncomfortable, febrile to 38.4 with heart rate in the 90s and vital signs otherwise stable. She appears clinically dry. Abdomen is benign. She has an approximate 20 cm region of erythema, induration, warmth and tenderness of the right lower lumbar region without overt vesicles to suggest shingles at this time. She is mildly confused without dysarthria or overt focal sensorimotor deficits. EKG without overt acute ischemia with chronic left bundle branch block no sgarbossa criteria. WBC 11.3 with neutrophil predominance but no left shift, nonspecific. H/H within normal limits. Platelets 492, nonspecific and likely reactive. Chemistry without metabolic acidosis. Electrolytes without significant normality. LFTs mildly elevated with total bilirubin 1.3, direct 3.6, AST and ALT 50 and 55, respectively. High-sensitivity troponin 16.2, mildly above normal and nonspecific. Lipase is not elevated. Procalcitonin is not elevated. UA with suspicion for infection with WBCs albeit with epithelial cells present and no bacteria. Respiratory viral panel/bio fire was negative. CT of the head was performed and negative for acute abnormality. CT of the abdomen pelvis was repeated today given acutely worsening right lumbar/flank cellulitis and did not demonstrate evidence of necrotizing infection nor deep infection or abscess. Note is made of trace perihepatic ascites inflammatory stranding surrounding the rigoberto hepatis and equivocal wall thickening of the duodenum is noted. Findings are suspicious for peptic ulcer disease. Given the patient's presentation [facility] for sepsis she was treated empirically with Zosyn and daptomycin. She was administered 30 cc/kg per IBW. Protonix bolus and drip also added for concern for peptic ulcer disease. Case was discussed with [facility]er [facility] who will evaluate the patient for admission. Further management per admitting team. Triage Nursing notes reviewed and agree them. Prior/outside medical records reviewed Vital Signs: reviewed Differential diagnosis: Sepsis, UTI, pneumonia, metabolic, electrolyte abnormalities, cardiac sources, intracerebral event, toxicologic, neurologic, as well as other pathologies. ER treatment provided: See below. Diagnostics interpreted by me: ECG: NSR, 86 bpm, no ectopy, LBBB, no sgarbossa criteria. Cardiac Monitoring: An order for continuous cardiac monitoring was placed and demonstrated NSR, 86 bpm, no ectopy. Laboratory studies: See below Imaging studies: See below Consultation(s): [facility] for [facility]. HPI: The patient is a pleasant 77-year-old woman with a past medical history of hypertension, hyperlipidemia, diabetes who presents to the emergency department via EMS for evaluation of fever that has been ongoing for the past week in the setting of being seen emergency department yesterday for similar symptoms where she was diagnosed with cellulitis and started on doxycycline. She reports taking the antibiotics yesterday but has not felt any improvement. She is a poor historian at this time and has difficulty explaining the timing of her symptoms and admits that she feels confused. Patient had a CT scan of her abdomen pelvis yesterday that did not show acute abnormalities. ROS: See above HPI for pertinent positives & negatives. A total of 10 systems reviewed and were otherwise negative. VITALS:See Below PHYSICAL EXAMINATION: GENERAL: Awake, alert, ill-appearing, uncomfortable-appearing, in no distress, BMI 34.5. HENT: Normocephalic, atraumatic. Oropharynx dry mucous membranes. EYES: Normal conjunctiva. Sclera non-icteric. NECK: Supple. No nuchal rigidity. FROM. No JVD. RESPIRATORY: Clear to auscultation. CARDIAC: Regular rate, normal rhythm. Extremities warm and well perfused. Pulses equal. ABDOMEN: Soft, non-distended. No tenderness to palpation. No rebound or guarding. No masses. RECTAL: Deferred. MUSCULOSKELETAL: Chest examination reveals no tenderness. The back is symmetrical on inspection without obvious abnormality. There is no CVA tenderness to palpation. No joint edema. LOWER EXTREMITIES: Calves are equal size bilaterally and non-tender. No edema. No discoloration. NEURO: Mild confusion. No focal sensory or motor deficits noted. 5/5 strength and SILT x 4 extremities. Cerebellar function intact including [id number], alternating palms, [id number]. SKIN: No rash or jaundice noted. ED COURSE: Critical Care: I have personally spent greater than 35 minutes of critical care time in the direct management of this patient. This includes bedside care, interpretation of diagnostic studies, and testing, discussion with consultants, patient, and family members, and other required patient management activities. This 35 minutes is in excess of all separately billable procedures. Jaswant Bradford MD Past Med/Surg History Medical History (Updated 08/20/22 @ 01:06 by Jaswant Bradford MD) Cardiac murmur follows with Dr Young Chronic back pain Colon polyps Diabetes mellitus, type 2 NIDDM GERD (gastroesophageal reflux disease) HTN (hypertension) Hyperlipidemia LBBB (left bundle branch block) Surgical History History of appendectomy History of back surgery History of breast augmentation History of cardiac cath possible history --- RICARDO Avalos. no stents if done. Follows Dr. Ramonita Young History of cataract surgery bilateral History of colonoscopy History of endoscopic sinus surgery History of esophagogastroduodenoscopy (EGD) History of hysterectomy LION with BSO History of thyroidectomy, total r/t enlargement History of tonsillectomy and adenoidectomy Hx of cholecystectomy Family History Father FHx: lymphoma Mother Family history of diabetes mellitus Other No family history of adverse response to anesthesia Social History Smoking Status: Former smoker Second Hand Exposure: No; Do You Dip or Chew Tobacco: No; Tobacco Cessation Education Requested by Patient: No Hx Alcohol Use: No Hx Substance Use: No Preferred Language: Slovenian Communication Ability: Effective Makeup Editor Required: No Beliefs That Will Affect Care: None Current Living Situation: Spouse Other Information That Helps Us Care for You: No Feels Safe at Home: Yes Assistive Devices: Denture - Upper, Denture - Lower and Glasses Allergies Allergies Allergy/AdvReac Type Severity Reaction Status Date / Time nitrofurantoin Allergy Severe TONGUE Verified 02/08/22 13:33 SWELLS Sulfa (Sulfonamide Allergy Unknown Itchiness Verified 02/08/22 13:33 Antibiotics) Home Meds Home Medications Medication Instructions Recorded Confirmed amlodipine 10 mg tablet 10 mg PO QAM 12/02/18 08/19/22 aspirin 81 mg tablet,delayed 81 mg PO QAM 12/02/18 08/19/22 release atorvastatin 40 mg tablet 40 mg PO PM 12/02/18 08/19/22 calcium carbonate 600 mg-vitamin 1 tab PO QAM 12/02/18 08/19/22 D3 10 mcg (400 unit) chewable tablet (Calcium 600 with Vitamin D3) carvedilol 6.25 mg tablet 6.25 mg PO BID 12/02/18 08/19/22 cholecalciferol (vitamin D3) 25 1,000 unit PO QAM 12/02/18 08/19/22 mcg (1,000 unit) capsule (Vitamin D3) cyclobenzaprine 5 mg tablet 5 mg PO TID PRN Muscle Spasm 12/02/18 08/19/22 cyclosporine 0.05 % eye drops in a 1 drp OPB TID PRN Dry Eye(S) 12/02/18 08/19/22 dropperette (Restasis) hydrochlorothiazide 25 mg tablet 25 mg PO DIRECTED PRN Edema 12/02/18 08/19/22 levothyroxine 125 mcg tablet 125 mcg PO QAM 12/02/18 08/19/22 losartan 100 mg tablet 100 mg PO PM 12/02/18 08/19/22 meloxicam 15 mg tablet 15 mg PO QAM PRN Pain 12/02/18 08/19/22 metformin 500 mg tablet,extended 500 mg PO TIDM 12/02/18 08/19/22 release 24 hr multivitamin 1 tab PO QAM 12/02/18 08/19/22 olopatadine 0.2 % eye drops 1 drp OPB HS 12/02/18 08/19/22 (Pataday) vit C,E,zinc,copper-fakgj1b 250 1 cap PO QAM 12/02/18 08/19/22 mg-lutein 5 mg-zeaxanthin 1 mg capsule (Ocuvite Adult 50 Plus) acetaminophen 500 mg tablet 1,000 mg PO Q6H PRN Pain 11/27/20 08/19/22 (Tylenol Extra Strength) Prevagen 1 cap PO QDL 02/03/22 08/19/22 Previous Rx's Medication Instructions Recorded doxycycline hyclate 100 mg capsule 100 mg PO BID 7 days #14 caps 08/18/22 Results & Data (ED) Vital Signs Vital Signs - 24 hr 08/19/22 13:41 08/19/22 13:49 08/19/22 14:45 Temperature 38.4 C H Temperature Source Oral Pulse Rate 90 88 Pulse Rate [Left Finger] Pulse Rhythm Regular Pulse Rhythm [Left Finger] Pulse Strength Normal Pulse Strength [Left Finger] Respiratory Rate 22 Respiratory Effort / Characteristics Non-Labored Spontaneous Respiratory Depth Normal Respiratory Pattern Regular Blood Pressure 154/74 H Blood Pressure [Left Arm] Blood Pressure Mean 100 Blood Pressure Mean [Left Arm] Blood Pressure Position Lying Blood Pressure Position [Left Arm] Pulse Oximetry 92 85 L Oxygen Delivery Method Room Air Room Air Oxygen Flow Rate Sepsis Recent Fever Within 48 Hours Yes Sepsis New/Unexplained Change in Mental Status Yes Sepsis Action Taken by Nursing No Action Required Oxygen Flow Rate - Titration 3 Pulse Oximetry Post Tiitration 97 08/19/22 15:00 08/19/22 16:10 Temperature Temperature Source Pulse Rate Pulse Rate [Left Finger] 75 70 Pulse Rhythm Pulse Rhythm [Left Finger] Regular Regular Pulse Strength Pulse Strength [Left Finger] Normal Normal Respiratory Rate 20 20 Respiratory Effort / Characteristics Non-Labored Spontaneous Non-Labored Spontaneous Respiratory Depth Normal Normal Respiratory Pattern Regular Regular Blood Pressure Blood Pressure [Left Arm] 130/88 142/75 H Blood Pressure Mean Blood Pressure Mean [Left Arm] 102 97 Blood Pressure Position Blood Pressure Position [Left Arm] Sitting Lying Pulse Oximetry 96 98 Oxygen Delivery Method Nasal Cannula Room Air Oxygen Flow Rate 4 Sepsis Recent Fever Within 48 Hours Sepsis New/Unexplained Change in Mental Status Sepsis Action Taken by Nursing Oxygen Flow Rate - Titration Pulse Oximetry Post Tiitration Laboratory Data Attestation: I reviewed the patient's lab results. 08/19/22 14:12 08/19/22 14:12 Lab Results 08/19/22 08/19/22 08/19/22 Range/Units 14:12 14:12 14:12 WBC 11.35 H (4.8-10.8) K/ul RBC 5.18 (4.20-5.40) M/uL Hgb 12.2 (12.0-16.0) g/dl Hct 39.1 (37.0-47.0) % MCV 75.5 L (80.0-100.0) fL MCH 23.6 L (25.0-34.0) pg MCHC 31.2 L (32.0-36.0) g/dL RDW Std Deviation 53.6 H (36.4-46.3) fL RDW Coeff of Nai 20.5 H (11.5-14.5) % Plt Count 492 H (130-400) K/uL MPV 10.9 (9.4-12.4) fL Immature Gran % (Auto) 0.7 % Neut % (Auto) 86.1 % Lymph % (Auto) 7.0 % [place] % (Auto) 5.4 % Eos % (Auto) 0.3 % Baso % (Auto) 0.5 % Neut # (Auto) 9.77 H (1.40-6.50) K/uL Lymph # (Auto) 0.80 L (1.2-3.4) K/uL [place] # (Auto) 0.61 H (0.11-0.59) K/uL Eos # (Auto) 0.03 (0-0.50) K/uL Baso # (Auto) 0.06 (0-0.2) K/uL Immature Gran # (Auto) 0.08 (0.01-0.20) K/uL Polychromasia 1+ Anisocytosis Present Ovalocytes 1+ Acanthocytes (Spur) 1+ Sodium 133 L (136-145) mmol/L Potassium 3.7 (3.5-5.1) mmol/L Chloride 98 (98-107) mmol/L Carbon Dioxide 26 (21-32) mmol/L Anion Gap 9 (3-11) BUN 14 (6-23) mg/dl Creatinine 0.82 (0.6-1.2) mg/dl Est Cr Clr Drug Dosing 70.9 ml/min Est GFR ( Amer) 80.6 ml/min Est GFR (Non-Af Amer) 69.5 ml/min BUN/Creatinine Ratio 17.1 (10-20) Glucose 123 H (70-99(Fasting)) mg/dl Lactate 1.5 (0.4-2.0) mmol/L Calcium 9.1 (8.6-10.3) mg/dl Phosphorus 2.3 L (2.5-4.9) mg/dl Magnesium 1.8 (1.7-2.4) mg/dl Total Bilirubin 1.3 H (0.2-1.0) mg/dl Direct Bilirubin 0.6 H (0-0.2) mg/dl AST 50 H (13-39) U/L ALT 55 H (7-52) U/L Alkaline Phosphatase 97 (34-104) U/L Troponin I High Sens 16.2 H D (0-14) pg/ml Total Protein 7.2 (6.0-8.3) gm/dl Albumin 3.9 (3.4-5.0) gm/dl Lipase 35 (11-82) U/L Procalcitonin (0-0.5) ng/ml Urine Color Urine Appearance (Clear) Urine pH (4.5-7.5) Ur Specific [place] (1.000-1.030) Urine Protein (Negative) Urine Glucose (UA) (Negative) Urine Ketones (Negative) Urine Blood (Negative) Urine Nitrite (Negative) Urine Bilirubin (Negative) Urine Urobilinogen (Negative) Ur Leukocyte Esterase (Negative) Urine WBC (Auto) (0-5) /hpf Urine RBC (Auto) (0-4) /hpf U Hyaline Cast (Auto) (0-5) /lpf U Epithel Cells (Auto) (0-5) /lpf Urine Bacteria (Auto) (Negative) Adenovirus (PCR) (NotDetected) B. pertussis DNA (PCR) (NotDetected) B.parapertussis DNA PCR (NotDetected) C. pneumoniae DNA (PCR) (NotDetected) Coronavirus OC43 (PCR) (NotDetected) Coronavirus HKU1 (PCR) (NotDetected) Coronavirus 229E (PCR) (NotDetected) SARS-CoV-2 (PCR) (NotDetected) Coronavirus NL63 (PCR) (NotDetected) Human Metapneumovir PCR (NotDetected) Influenza Type A (PCR) (NotDetected) Influenza Type B (PCR) (NotDetected) M. pneumoniae (PCR) (NotDetected) Parainfluenza 1 (PCR) (NotDetected) Parainfluenza 2 (PCR) (NotDetected) Parainfluenza 3 (PCR) (NotDetected) Parainfluenza 4 (PCR) (NotDetected) RSV (PCR) (NotDetected) Entero/Rhino (PCR) (NotDetected) 08/19/22 08/19/22 08/19/22 Range/Units 14:12 14:15 15:51 WBC (4.8-10.8) K/ul RBC (4.20-5.40) M/uL Hgb (12.0-16.0) g/dl Hct (37.0-47.0) % MCV (80.0-100.0) fL MCH (25.0-34.0) pg MCHC (32.0-36.0) g/dL RDW Std Deviation (36.4-46.3) fL RDW Coeff of Nai (11.5-14.5) % Plt Count (130-400) K/uL MPV (9.4-12.4) fL Immature Gran % (Auto) % Neut % (Auto) % Lymph % (Auto) % [place] % (Auto) % Eos % (Auto) % Baso % (Auto) % Neut # (Auto) (1.40-6.50) K/uL Lymph # (Auto) (1.2-3.4) K/uL [place] # (Auto) (0.11-0.59) K/uL Eos # (Auto) (0-0.50) K/uL Baso # (Auto) (0-0.2) K/uL Immature Gran # (Auto) (0.01-0.20) K/uL Polychromasia Anisocytosis Ovalocytes Acanthocytes (Spur) Sodium (136-145) mmol/L Potassium (3.5-5.1) mmol/L Chloride (98-107) mmol/L Carbon Dioxide (21-32) mmol/L Anion Gap (3-11) BUN (6-23) mg/dl Creatinine (0.6-1.2) mg/dl Est Cr Clr Drug Dosing ml/min Est GFR ( Amer) ml/min Est GFR (Non-Af Amer) ml/min BUN/Creatinine Ratio (10-20) Glucose (70-99(Fasting)) mg/dl Lactate (0.4-2.0) mmol/L Calcium (8.6-10.3) mg/dl Phosphorus (2.5-4.9) mg/dl Magnesium (1.7-2.4) mg/dl Total Bilirubin (0.2-1.0) mg/dl Direct Bilirubin (0-0.2) mg/dl AST (13-39) U/L ALT (7-52) U/L Alkaline Phosphatase (34-104) U/L Troponin I High Sens (0-14) pg/ml Total Protein (6.0-8.3) gm/dl Albumin (3.4-5.0) gm/dl Lipase (11-82) U/L Procalcitonin 0.23 (0-0.5) ng/ml Urine Color Dark Yellow Urine Appearance Cloudy A (Clear) Urine pH 5.5 (4.5-7.5) Ur Specific [place] > 1.045 H (1.000-1.030) Urine Protein 1+ H (Negative) Urine Glucose (UA) Negative (Negative) Urine Ketones Trace H (Negative) Urine Blood Negative (Negative) Urine Nitrite Negative (Negative) Urine Bilirubin Negative (Negative) Urine Urobilinogen Negative (Negative) Ur Leukocyte Esterase 1+ H (Negative) Urine WBC (Auto) 10-30 H (0-5) /hpf Urine RBC (Auto) 10-30 H (0-4) /hpf U Hyaline Cast (Auto) 1-5 (0-5) /lpf U Epithel Cells (Auto) >30 H (0-5) /lpf Urine Bacteria (Auto) Negative (Negative) Adenovirus (PCR) Not Detected (NotDetected) B. pertussis DNA (PCR) Not Detected (NotDetected) B.parapertussis DNA PCR Not Detected (NotDetected) C. pneumoniae DNA (PCR) Not Detected (NotDetected) Coronavirus OC43 (PCR) Not Detected (NotDetected) Coronavirus HKU1 (PCR) Not Detected (NotDetected) Coronavirus 229E (PCR) Not Detected (NotDetected) SARS-CoV-2 (PCR) Not Detected (NotDetected) Coronavirus NL63 (PCR) Not Detected (NotDetected) Human Metapneumovir PCR Not Detected (NotDetected) Influenza Type A (PCR) Not Detected (NotDetected) Influenza Type B (PCR) Not Detected (NotDetected) M. pneumoniae (PCR) Not Detected (NotDetected) Parainfluenza 1 (PCR) Not Detected (NotDetected) Parainfluenza 2 (PCR) Not Detected (NotDetected) Parainfluenza 3 (PCR) Not Detected (NotDetected) Parainfluenza 4 (PCR) Not Detected (NotDetected) RSV (PCR) Not Detected (NotDetected) Entero/Rhino (PCR) Not Detected (NotDetected) Administered Medications Acetaminophen (Acetaminophen 325 Mg Tab) 650 mg PO Q4H PRN PRN Reason: Pain or Fever Stop: 09/18/22 16:37 Last Admin: 08/19/22 21:43 Dose: 650 mg Documented By: HELEN Carvedilol (Carvedilol 6.25 Mg Tab) 6.25 mg PO BID [facility] Stop: 09/18/22 20:59 Last Admin: 08/19/22 20:29 Dose: 6.25 mg Documented By: ITALIA Pantoprazole Sodium 40 mg/ (Dextrose) 100 mls @ 20 mls/hr IV Q5H SUNNY Stop: 09/18/22 16:44 Last Admin: 08/19/22 23:23 Dose: 8 mg/hr, 20 mls/hr Documented By: Infusion: 08/19/22 23:23 Dose: 8 mg/hr, 20 mls/hr Documented By: Admin: 08/19/22 18:54 Dose: 8 mg/hr, 20 mls/hr Documented By: LIANET Piperacillin Sod/Tazobactam (Sod 4.5 gm/ Dextrose) 120 mls @ 30 mls/hr IV Q8H SUNNY; Protocol Stop: 08/26/22 19:59 Last Infusion: 08/19/22 23:24 Dose: 0 mls/hr Documented By: Admin: 08/19/22 19:44 Dose: 30 mls/hr Documented By: ITALIA Insulin Aspart (Insulin Aspart Per Unit Charge) 0 units SC ACHS [facility] Stop: 09/18/22 19:29 Last Admin: 08/19/22 21:33 Dose: Not Given Documented By: HELEN Co-signed By: ITALIA Admin: 08/19/22 19:12 Dose: Not Given Documented By: DM Co-signed By: ITALIA Insulin Glargine (Lantus Per Unit Charge) 0 units SQ BID SUNNY; Protocol Stop: 09/18/22 20:59 Last Admin: 08/19/22 21:33 Dose: Not Given Documented By: HELEN Losartan Potassium (Losartan Potassium 50 Mg Tab) 100 mg PO PM [facility] Stop: 09/18/22 20:59 Last Admin: 08/19/22 20:29 Dose: 100 mg Documented By: ITALIA Melatonin (Melatonin 3 Mg Tab) 3 mg PO HS PRN PRN Reason: Sleep Stop: 09/18/22 21:36 Last Admin: 08/19/22 21:43 Dose: 3 mg Documented By: HELEN Miscellaneous (Olopatadine [Pataday] 0.2 % Drops - Order Awaiting Action) 1 each N/A QS [facility] Stop: 09/19/22 00:00 Last Admin: 08/19/22 23:24 Dose: Not Given Documented By: DM Discontinued Medications Acetaminophen (Ofirmev) 1,000 mg in 100 mls @ 400 mls/hr IV NOW STA Stop: 08/19/22 14:03 Last Infusion: 08/19/22 15:24 Dose: 0 mls/hr Documented By: Admin: 08/19/22 14:21 Dose: 400 mls/hr Documented By: SAHIL Sodium Chloride (Nss 1000ml) 2,000 mls @ 999 mls/hr IV .Q2H1M ONE Stop: 08/19/22 15:49 Last Infusion: 08/19/22 16:59 Dose: 0 mls/hr Documented By: Admin: 08/19/22 14:21 Dose: 999 mls/hr Documented By: SAHIL Piperacillin Sod/Tazobactam (Sod 4.5 gm/ Dextrose) 120 mls @ 200 mls/hr IV NOW ONE Stop: 08/19/22 14:51 Last Infusion: 08/19/22 16:59 Dose: 0 mls/hr Documented By: Admin: 08/19/22 15:48 Dose: 200 mls/hr Documented By: SAHIL Daptomycin 375 mg/ Syringe 7.5 mls @ 3.75 mls/min IV Q24H [facility]; Protocol Stop: 08/21/22 14:29 Last Admin: 08/19/22 15:47 Dose: 3.75 mls/min Documented By: SAHIL Pantoprazole Sodium (Protonix Bolus/Drip) 0 mls @ 1 mls/hr IV ONE STA Stop: 08/19/22 16:26 Last Admin: 08/19/22 18:51 Dose: Not Given Documented By: LIANET Pantoprazole Sodium 80 mg/ (Dextrose) 120 mls @ 400 mls/hr IV NOW ONE Stop: 08/19/22 16:42 Last Infusion: 08/19/22 18:57 Dose: 0 mls/hr Documented By: Admin: 08/19/22 16:44 Dose: 400 mls/hr Documented By: ISRA Ioversol (Optiray 320 100ml) 82 ml IV ONCE ONE Stop: 08/19/22 15:15 Last Admin: 08/19/22 15:15 Dose: 82 ml Documented By: DIMITRI Imaging Data Radiologist's Impression: Chest X-Ray 08/19/22 13:48 XR chest 1V portable HISTORY: 77 years-old Female Sepsis COMPARISON: 08/18/2022 TECHNIQUE: AP view of the chest FINDINGS: Cardiac silhouette is enlarged. No pneumothorax, pleural effusion, airspace consolidation or overt pulmonary edema. Degenerative changes of the shoulders and spine. IMPRESSION: No acute process. ACT 112: Negative or not required by law. The above report was generated using voice recognition software. It may contain grammatical, syntax or spelling errors. Electronically signed by: Garry Rosenthal M.D. 08/19/2022 2:[address] 08/19/22 14:17 CT head/brain wo con CLINICAL HISTORY: 77 years-old Female with sepsis, ams. Acutely altered mental status TECHNIQUE: Multiple axial CT images of the head were obtained without contrast. A dose lowering technique was utilized adhering to the principles of ALARA. COMPARISON: 04/16/2019 FINDINGS: No acute intracranial hemorrhage, midline shift, intracranial mass, hydrocephalus, territorial ischemia or abnormal extra-axial collection. Involutional changes with white matter hypodensities suggestive of chronic microvascular ischemic disease. The calvarium is intact. Prior bilateral lens repair. The paranasal sinuses, mastoid air cells, and middle ear cavities are clear. IMPRESSION: No acute intracranial abnormality. ACT 112: Negative or not required by law. The above report was generated using voice recognition software. It may contain grammatical, syntax or spelling errors. Electronically signed by: Garry Rosenthal M.D. 08/19/2022 3:24 PM Abdomen/Pelvis CT 08/19/22 14:[address] WITH IV CONTRAST CT DOSE: 2288.16 mGy.cm HISTORY: Acute sepsis with right-sided flank pain sepsis, progressive right flank cellulitis TECHNIQUE: Multiaxial CT images of the abdomen and pelvis were performed following the IV administration of 82 cc of Optiray, A dose lowering technique was utilized adhering to the principles of ALARA. COMPARISON STUDY: 08/18/2022 FINDINGS: Bilateral breast implants. Cardiomegaly with coronary artery calcifications. Trace left pleural effusion with mild subsegmental bibasilar atelectasis. No pneumatosis or pneumoperitoneum. Spleen is mildly enlarged, 13 cm with scattered calcified granulomata. Unremarkable pancreas and adrenal glands. Cholecystectomy. Trace perihepatic and rigoberto hepatis ascites again noted with mild rigoberto hepatis inflammatory stranding centered around the proximal portion of the duodenum. Patency of the hepatic and portal veins. Left-sided renal sinus cysts again noted. A few small renal cortical cysts are stable. No hydronephrosis. Contrast noted within the right renal collecting system and urinary bladder. Hysterectomy. Atherosclerosis of the aorta. No lymphadenopathy. Mild nonspecific wall thickening of the distal esophagus and duodenum. No bowel obstruction. Colonic diverticulosis. Mild fecal retention. No CT evidence of acute appendicitis. Mild right flank subcutaneous edema. No fluid collections. No acute fracture. IMPRESSION: 1. No significant change compared to the study obtained less than 24 hours earlier. 2. Trace perihepatic ascites with inflammatory stranding again noted within the rigoberto hepatis. Equivocal wall thickening of the duodenum is also noted. Findings should be correlated clinically to exclude peptic ulcer disease. 3. Colonic diverticulosis. 4. Mild subcutaneous edema of the right flank. No abscess. ACT 112: Negative or not required by law. The above report was generated using voice recognition software. It may contain grammatical, syntax or spelling errors. Electronically signed by: Garry Rosenthal M.D. 08/19/2022 4:01 PM Discharge Plan Visit Data Chief Complaint: Weakness ED Provider: Jaswant Bradford Discharge Problem: SIRS (systemic inflammatory response syndrome), Cellulitis, Urinary tract infection, Peptic ulcer disease Patient Disposition: Admitted As Inpatient Discharge Instructions Interventions: ED Discharge Assessment Last Done: 08/19/22 18:17 Cellulitis Qualifiers: Site of cellulitis of trunk: back
[2022-08-19] MEDS ORDERED: DAPTOmycin 375 MG in SYRINGE 0 ML IV SCH (14:30)
[2022-08-19 14:31] LABS: Basophils # (auto) 0.06 K/uL (0-0.2); Basophils % (auto) 0.5 %; Eosinophils # (auto) 0.03 K/uL (0-0.50); Eosinophils % (auto) 0.3 %; Hematocrit (blood only) 39.1 % (37.0-47.0); Hemoglobin 12.2 g/dl (12.0-16.0); Immature Granulocytes # (auto) 0.08 K/uL (0.01-0.20); Immature Granulocytes % (auto) 0.7 %; Mean Corpuscular Hemoglobin 23.6 pg (25.0-34.0); Mean Corpuscular Hgb Conc 31.2 g/dL (32.0-36.0); Mean Corpuscular Volume 75.5 fL (80.0-100.0); Mean Platelet Volume 10.9 fL (9.4-12.4); Monocytes # (auto) 0.61 K/uL (0.11-0.59); Monocytes % (auto) 5.4 %; Neutrophils # (auto) 9.77 K/uL (1.40-6.50); Neutrophils % (auto) 86.1 %; Platelet Count 492 K/uL (130-400); RDW Coefficient of Variation 20.5 % (11.5-14.5); RDW Standard Deviation 53.6 fL (36.4-46.3); Red Blood Count 5.18 M/uL (4.20-5.40); White Blood Count 11.35 K/ul (4.8-10.8)
[2022-08-19 14:47] LABS: Albumin Level 3.9 gm/dl (3.4-5.0); BUN Creatinine Ratio 17.1 (10-20); Bilirubin Direct 0.6 mg/dl (0-0.2); Bilirubin,Total 1.3 mg/dl (0.2-1.0); Calcium 9.1 mg/dl (8.6-10.3); Creatinine Clr Calc Pharmacy 70.9 ml/min; Est GFR (African American) 80.6 ml/min; Est GFR (Non-African American) 69.5 ml/min; Magnesium 1.8 mg/dl (1.7-2.4); Phosphorus 2.3 mg/dl (2.5-4.9); Potassium 3.7 mmol/L (3.5-5.1); Total Protein 7.2 gm/dl (6.0-8.3)
[2022-08-19 14:49] LABS: Acanthocytes 1+; Anisocytosis Present; Ovalocytes 1+; Polychromasia 1+
[2022-08-19 14:54] LABS: Troponin I High Sensitivity 16.2 pg/ml (0-14)
[2022-08-19] MEDS ORDERED: OPTIRAY 320 100ml IV ONE (15:14)
[2022-08-19 15:18] LABS: Adenovirus PCR Not Detected (NotDetected); Bordetella parapertussis PCR Not Detected (NotDetected); Bordetella pertussis PCR Not Detected (NotDetected); Chlamydia pneumoniae PCR Not Detected (NotDetected); Coronavirus 229E PCR Not Detected (NotDetected); Coronavirus CoV-2 (COVID19)PCR Not Detected (NotDetected); Coronavirus HKU1 PCR Not Detected (NotDetected); Coronavirus NL63 PCR Not Detected (NotDetected); Coronavirus OC43PCR Not Detected (NotDetected); Human Metapneumovirus PCR Not Detected (NotDetected); Influenza A PCR Not Detected (NotDetected); Influenza B PCR Not Detected (NotDetected); Mycoplasma pneumoniae PCR Not Detected (NotDetected); Parainfluenza Virus 1 PCR Not Detected (NotDetected); Parainfluenza Virus 2 PCR Not Detected (NotDetected); Parainfluenza Virus 3 PCR Not Detected (NotDetected); Parainfluenza Virus 4 PCR Not Detected (NotDetected); Respiratory Syncytial VirusPCR Not Detected (NotDetected); Rhinovirus/Enterovirus PCR Not Detected (NotDetected)
--- NOTE | 2022-08-19 15:25 | CT Scan Report ---
CT head/brain wo con CLINICAL HISTORY: 77 years-old Female with sepsis, ams. Acutely altered mental status TECHNIQUE: Multiple axial CT images of the head were obtained without contrast. A dose lowering tech nique was utilized adhering to the principles of ALARA. COMPARISON: 04/16/2019 FINDINGS: No acute intracranial hemorrhage, midline shift, intracranial mass, hydrocephalus, territorial ischem ia or abnormal extra-axial collection. Involutional changes with white matter hypodensities suggestiv e of chronic microvascular ischemic disease. The calvarium is intact. Prior bilateral lens repair. The paranasal sinuses, mastoid air cells, and m iddle ear cavities are clear. IMPRESSION: No acute intracranial abnormality. ACT 112: Negative or not required by law. The above report was generated using voice recognition software. It may contain grammatical, syntax o r spelling errors. Electronically signed by: Garry Rosenthal M.D. 08/19/2022 3:24 PM
--- NOTE | 2022-08-19 15:57 | Electrocardiogram Report ---
Test Reason : Blood Pressure : / mmHG Vent. Rate : 086 BPM Atrial Rate : 086 BPM P-R Int : 124 ms QRS Dur : 164 ms QT Int : 412 ms P-R-T Axes : 074 -46 114 degrees QTc Int : 493 ms Normal sinus rhythm with sinus arrhythmia Left bundle branch block Abnormal ECG When compared with ECG of 18-AUG-2022 17:08, No significant change was found Confirmed by Ja Hart ([id number]) on 08/19/2022 3:57:17 PM Referred By: Confirmed By:Aaron Hart
[2022-08-19 16:02] LABS: Appearance Urine Cloudy (Clear); Bacteria Urine Automated Negative (Negative); Bilirubin Urine Negative (Negative); Blood Urine Negative (Negative); Color Urine Dark Yellow; Epithelial Cell Urine Auto >30 /lpf (0-5); Glucose Urine UA Negative (Negative); Ketones Urine Trace (Negative); Leukocyte Esterase Urine 1+ (Negative); Nitrite Urine Negative (Negative); Protein Urine 1+ (Negative); Specific Gravity Urine > 1.045 (1.000-1.030); Urobilinogen Urine Negative (Negative); pH Urine 5.5 (4.5-7.5)
--- NOTE | 2022-08-19 16:04 | CT Scan Report ---
ABDOMEN AND PELVIS CT WITH IV CONTRAST CT DOSE: 2288.16 mGy.cm HISTORY: Acute sepsis with right-sided flank pain sepsis, progressive right flank cellulitis TECHNIQUE: Multiaxial CT images of the abdomen and pelvis were performed following the IV administrat ion of 82 cc of Optiray, A dose lowering technique was utilized adhering to the principles of ALARA. COMPARISON STUDY: 08/18/2022 FINDINGS: Bilateral breast implants. Cardiomegaly with coronary artery calcifications. Trace left ple ural effusion with mild subsegmental bibasilar atelectasis. No pneumatosis or pneumoperitoneum. Splee n is mildly enlarged, 13 cm with scattered calcified granulomata. Unremarkable pancreas and adrenal g lands. Cholecystectomy. Trace perihepatic and rigoberto hepatis ascites again noted with mild rigoberto hepat is inflammatory stranding centered around the proximal portion of the duodenum. Patency of the hepati c and portal veins. Left-sided renal sinus cysts again noted. A few small renal cortical cysts are stable. No hydronephro sis. Contrast noted within the right renal collecting system and urinary bladder. Hysterectomy. Ather osclerosis of the aorta. No lymphadenopathy. Mild nonspecific wall thickening of the distal esophagus and duodenum. No bowel obstruction. Colonic diverticulosis. Mild fecal retention. No CT evidence of acute appendicitis. Mild right flank subcutaneous edema. No fluid collections. No acute fracture. IMPRESSION: 1. No significant change compared to the study obtained less than 24 hours earlier. 2. Trace perihepatic ascites with inflammatory stranding again noted within the rigoberto hepatis. Equivo obdulia wall thickening of the duodenum is also noted. Findings should be correlated clinically to exclud e peptic ulcer disease. 3. Colonic diverticulosis. 4. Mild subcutaneous edema of the right flank. No abscess. ACT 112: Negative or not required by law. The above report was generated using voice recognition software. It may contain grammatical, syntax o r spelling errors. Electronically signed by: Garry Rosenthal M.D. 08/19/2022 4:01 PM
[2022-08-19] MEDS ORDERED: PANTOprazole 80 MG in DEXTROSE 5% 100 ML IV ONE (16:25)
[2022-08-19] MEDS ORDERED: PANTOPRAZOLE BOLUS/DRIP 1 EACH IV STA (16:25)
[2022-08-19] MEDS ORDERED: MAGNESIUM HYDROXIDE SUSP 30 ML UDC PO PRN (16:38)
[2022-08-19] MEDS ORDERED: ALUMINUM/MAGNESIUM SUSP 30 ML UDC PO PRN (16:38)
[2022-08-19] MEDS ORDERED: ONDANSETRON INJ 2 MG/ML 2 ML VIAL IV PRN (16:38)
[2022-08-19] MEDS ORDERED: POLYETHYLENE (MIRALAX) 17 GM PACK PO PRN (16:38)
--- NOTE | 2022-08-19 16:44 | History & Physical Report ---
Date of Service August 19, 2022 Assessment & Plan (1) Cellulitis: (2) HTN (hypertension): (3) Dyslipidemia: (4) Chronic back pain: (5) Diabetes mellitus, type 2: Plan 77 y/o presents with right flank pain, dizziness, fevers x1 week. A/P CT shows PUD and perihepatic ascites. Started on Protonix gtt in ED. Follows with GI as outpatient for epigastric pain and postprandial symptoms. HFrEF follows with Dr. Young as outpatient. Cellulitis: Right flank tenderness and pain to touch A/P CT: Mild subcutaneous edema of the right flank. No abscess. Lyme negative yesterday; retest. reports having a tick bite a few weeks ago Continue Daptomycin + Zosyn for now Blood cultures pending Consider shingles as Ddx PUD: AP CT: Trace perihepatic ascites with inflammatory stranding again noted within the rigoberto hepatis. Equivocal wall thickening of the duodenum is also noted. Findings should be correlated clinically to exclude peptic ulcer disease. Colonic diverticulosis. Pt placed on Protonix gtt in ED LFTs AST 50, ALT 66, Alkphos 97 TBili 1.0--> 1.3 over last 24 hours Direct Bili 1.4--> 1.6 over last 24 hours GI consult; last seen GI for epigastric abdominal pain postprandial symptoms HFrEF: HTN: Takes Amlodipine, Coreg, Losartan; continue An echo was performed 08/10/2022: LVEF reduced 40 to 44%. Mild AVR. LV systolic function mildly declined. There was discussion with his outpatient kitchen aide about adding Entresto. ZIO monitor was placed June 2022 for SVT. IVCD and BBB present Troponin 16.2; will trend x1. Do not suspect ACS; rather ischemic demand Orthostatic BPs ordered Consider Cards consult if escalation of Trop or symptoms persist Dyslipidemia: Takes Atorvastatin; continue Diabetes mellitus type 2: Takes Metformin; will hold while here Takes Gabapentin for neuropathy ACHS FSBS SSI A1C 6.2 on 03/2022; will recheck here Chronic back pain: No longer taking Tramadol; just Tylenol for flares in her back Hypothyroidism: Takes Levothyroxine; continue Disposition: PCP: Dr. Angel CODE STATUS: Full code VTE prophylaxis: Teds and SCDs for now I spent a total of 87 minutes coordinating, documenting, and providing care for this patient excluding time spent in the performance of separately billed services. All of the aforementioned completed while collaborating with the assigned attending physician for a full treatment plan. Please see their addendum for further details. History of Present Illness Chief Complaint: right flank pain Primary Care Provider: Ran Angel MD Ms. Nieves presents with numerous complaints that started one week ago including dizziness, gait ataxia, R flank pain, and fevers. She reports dizziness with stumbling with ambulation leading to a fall where she felt like she could not get back up on her own due to inability to move her lower extremities. Fevers for about the same time frame up to 101. At baseline she ambulates independently. She also reports abdominal distension and generalized pain. She reports no recent travel but does have a non productive cough that has been lingering for a month with PND. She reports some blurry vision over the past week. She came to the ED yesterday with similar symptoms. CXR negative for acute cardiopulmonary disease, head CT negative for acute cranial process including ICH or midline shift. AP CT: Trace perihepatic ascites with inflammatory stranding again noted within the rigoberto hepatis. Equivocal wall thickening of the duodenum is also noted. Findings should be correlated clinically to exclude peptic ulcer disease. Colonic diverticulosis. Very mild leukocytosis WBC 11.35 with no left shift. It is neutrophil predominant. Slight troponin bump 16.2 which I suspect is related to ischemic demand rather than ACS. Procalcitonin negative and bio fire negative. Urine appears to have some suggestion of UTI. LFTs showing mild changes from yeste rday T. bili increased from 1.0-1.3; direct bilirubin increased from 1.4-1.6. Pt was placed on a Protonix gtt in ED. Additional past medical history includes CAD, chronic back pain, HFrEF, [id number] diabetes mellitus type 2, HTN, HLD, GERD, hypothyroidism. Patient does follow with GI as an outpatient for chronic epigastric abdominal pain and postprandial symptoms. Her last appt was 07/25/22. EGD 2017: Normal esophagus. Gastritis. Biopsied. Normal examined duodenum Colon 2020: The perianal and digital rectal examinations were normal.The colon could not be advanced beyond the sigmoid colon, due to tight angulation of the sigmoid colon. A few sigmoid diverticula were seen. The procedure was aborted. Cologuard 2020: negative An ECHO was performed 08/10/2022: LVEF reduced 40 to 44%. Mild AVR. LV systolic function mildly declined. There was discussion with his outpatient kitchen aide about adding Entresto; in discussion with the patient this medication has not been started yet. ZIO monitor was placed June 2022 for SVT. IVCD and BBB present on ZIO monitor. Patient denies CALHOUN, auditory changes, nausea, vomiting, diarrhea, recent trauma. She reports 'thinking' she had a tick bite a few weeks ago. Lyme serology negative in ED yesterday. Patient will be admitted for further evaluation and management. Please see A/P for further details. Allergies Allergy/AdvReac Type Severity Reaction Status Date / Time nitrofurantoin Allergy Severe TONGUE Verified 02/08/22 13:33 SWELLS Sulfa (Sulfonamide Allergy Unknown Itchiness Verified 02/08/22 13:33 Antibiotics) Home Medications Medication Instructions Recorded Confirmed Type amlodipine 10 mg tablet 10 mg PO QAM 12/02/18 08/19/22 History aspirin 81 mg tablet,delayed 81 mg PO QAM 12/02/18 08/19/22 History release atorvastatin 40 mg tablet 40 mg PO PM 12/02/18 08/19/22 History calcium carbonate 600 mg-vitamin 1 tab PO QAM 12/02/18 08/19/22 History D3 10 mcg (400 unit) chewable tablet (Calcium 600 with Vitamin D3) carvedilol 6.25 mg tablet 6.25 mg PO BID 12/02/18 08/19/22 History cholecalciferol (vitamin D3) 25 1,000 unit PO QAM 12/02/18 08/19/22 History mcg (1,000 unit) capsule (Vitamin D3) cyclobenzaprine 5 mg tablet 5 mg PO TID PRN Muscle Spasm 12/02/18 08/19/22 History cyclosporine 0.05 % eye drops in a 1 drp OPB TID PRN Dry Eye(S) 12/02/18 08/19/22 History dropperette (Restasis) hydrochlorothiazide 25 mg tablet 25 mg PO DIRECTED PRN Edema 12/02/18 08/19/22 History levothyroxine 125 mcg tablet 125 mcg PO QAM 12/02/18 08/19/22 History losartan 100 mg tablet 100 mg PO PM 12/02/18 08/19/22 History meloxicam 15 mg tablet 15 mg PO QAM PRN Pain 12/02/18 08/19/22 History metformin 500 mg tablet,extended 500 mg PO TIDM 12/02/18 08/19/22 History release 24 hr multivitamin 1 tab PO QAM 12/02/18 08/19/22 History olopatadine 0.2 % eye drops 1 drp OPB HS 12/02/18 08/19/22 History (Pataday) vit C,E,zinc,copper-vblab4r 250 1 cap PO QAM 12/02/18 08/19/22 History mg-lutein 5 mg-zeaxanthin 1 mg capsule (Ocuvite Adult 50 Plus) acetaminophen 500 mg tablet 1,000 mg PO Q6H PRN Pain 11/27/20 08/19/22 History (Tylenol Extra Strength) Prevagen 1 cap PO QDL 02/03/22 08/19/22 History doxycycline hyclate 100 mg capsule 100 mg PO BID 7 days #14 caps 08/18/22 08/19/22 Rx Past Med/Surg History Medical History Cardiac murmur follows with Dr Young Chronic back pain Colon polyps Diabetes mellitus, type 2 NIDDM GERD (gastroesophageal reflux disease) HTN (hypertension) Hyperlipidemia LBBB (left bundle branch block) Surgical History History of appendectomy History of back surgery History of breast augmentation History of cardiac cath possible history --- RICARDO Avalos. no stents if done. Follows Dr. Ramonita Young History of cataract surgery bilateral History of colonoscopy History of endoscopic sinus surgery History of esophagogastroduodenoscopy (EGD) History of hysterectomy LION with BSO History of thyroidectomy, total r/t enlargement History of tonsillectomy and adenoidectomy Hx of cholecystectomy Family History Father FHx: lymphoma Mother Family history of diabetes mellitus Other No family history of adverse response to anesthesia Social History Smoking Status: Former smoker Second Hand Exposure: No; Do You Dip or Chew Tobacco: No; Tobacco Cessation Education Requested by Patient: No Hx Alcohol Use: No Hx Substance Use: No Preferred Language: Romanian Communication Ability: Effective Corporate Sales Trainer Required: No Beliefs That Will Affect Care: None Current Living Situation: Spouse Other Information That Helps Us Care for You: No Feels Safe at Home: Yes Assistive Devices: Denture - Upper, Denture - Lower and Glasses Review of Systems Review of Systems: Neuro: (-) Falls, trauma, slurred speech HEENT: (-) CALHOUN, dizziness, dysphagia, visual or auditory changes CV: (-) CP, palpitations, swelling Resp: (-) SOB GI: (-) appetite changes, N/V/D, bowel changes : (-) urinary changes Skin: (-) rashes Psych: (-) anxiety, depression Physical Exam Physical Exam: Neuro: AAOx4, PERRLA, no aphagia, memory changes, CNII-XII grossly intact HEENT: head normocephalic, moist mucus membranes CV: S1/S2, (-) M/G/R, (-) edema, cap refill < 3 seconds Resp: Lungs CTA in all zuleta. On RA GI: Abdomen S/NT/ND, Ax4 bowel sounds, (-) CVA tenderness Musculoskeletal: 5/5 B/L UE strength, 5/5 B/L LE strength. No gait disturbance Skin: (-) rashes , (-) erythema. Psych: euthymic mood Results & Data Results & Data Vital Signs (Past 12 Hours) Vital Signs Temp Pulse Pulse Resp BP BP Pulse Ox 08/19/22 16:10 70 20 142/75 H 98 08/19/22 15:00 75 20 130/88 96 08/19/22 14:45 85 L 08/19/22 13:49 88 08/19/22 13:41 38.4 C H 90 22 154/74 H 92 O2 Del Method O2 Flow Rate 08/19/22 16:10 Room Air 08/19/22 15:00 Nasal Cannula 4 08/19/22 14:45 Room Air 08/19/22 13:49 08/19/22 13:41 Room Air Laboratory Results Short CBC 08/19/22 Range/Units 14:12 WBC 11.35 H (4.8-10.8) K/ul Hgb 12.2 (12.0-16.0) g/dl Hct 39.1 (37.0-47.0) % Plt Count 492 H (130-400) K/uL BMP 08/19/22 14:12 Sodium 133 L Potassium 3.7 Chloride 98 Carbon Dioxide 26 BUN 14 Creatinine 0.82 Glucose 123 H Calcium 9.1 Liver Function 08/19/22 Range/Units 14:12 Total Bilirubin 1.3 H (0.2-1.0) mg/dl Direct Bilirubin 0.6 H (0-0.2) mg/dl AST 50 H (13-39) U/L ALT 55 H (7-52) U/L Alkaline Phosphatase 97 (34-104) U/L Albumin 3.9 (3.4-5.0) gm/dl Urine 08/19/22 Range/Units 15:51 Urine Color Dark Yellow Urine Appearance Cloudy A (Clear) Urine pH 5.5 (4.5-7.5) Ur Specific [place] > 1.045 H (1.000-1.030) Urine Protein 1+ H (Negative) Urine Glucose (UA) Negative (Negative) Diagnostic Findings Chest X-Ray 08/19/22 13:48 XR chest 1V portable HISTORY: 77 years-old Female Sepsis COMPARISON: 08/18/2022 TECHNIQUE: AP view of the chest FINDINGS: Cardiac silhouette is enlarged. No pneumothorax, pleural effusion, airspace consolidation or overt pulmonary edema. Degenerative changes of the shoulders and spine. IMPRESSION: No acute process. ACT 112: Negative or not required by law. The above report was generated using voice recognition software. It may contain grammatical, syntax or spelling errors. Electronically signed by: Garry Rosenthal M.D. 08/19/2022 2:[address] 08/19/22 14:17 CT head/brain wo con CLINICAL HISTORY: 77 years-old Female with sepsis, ams. Acutely altered mental status TECHNIQUE: Multiple axial CT images of the head were obtained without contrast. A dose lowering technique was utilized adhering to the principles of ALARA. COMPARISON: 04/16/2019 FINDINGS: No acute intracranial hemorrhage, midline shift, intracranial mass, hydrocephalus, territorial ischemia or abnormal extra-axial collection. Involutional changes with white matter hypodensities suggestive of chronic microvascular ischemic disease. The calvarium is intact. Prior bilateral lens repair. The paranasal sinuses, mastoid air cells, and middle ear cavities are clear. IMPRESSION: No acute intracranial abnormality. ACT 112: Negative or not required by law. The above report was generated using voice recognition software. It may contain grammatical, syntax or spelling errors. Electronically signed by: Garry Rosenthal M.D. 08/19/2022 3:24 PM Abdomen/Pelvis CT 08/19/22 14:[address] WITH IV CONTRAST CT DOSE: 2288.16 mGy.cm HISTORY: Acute sepsis with right-sided flank pain sepsis, progressive right flank cellulitis TECHNIQUE: Multiaxial CT images of the abdomen and pelvis were performed following the IV administration of 82 cc of Optiray, A dose lowering technique was utilized adhering to the principles of ALARA. COMPARISON STUDY: 08/18/2022 FINDINGS: Bilateral breast implants. Cardiomegaly with coronary artery calcifications. Trace left pleural effusion with mild subsegmental bibasilar atelectasis. No pneumatosis or pneumoperitoneum. Spleen is mildly enlarged, 13 cm with scattered calcified granulomata. Unremarkable pancreas and adrenal glands. Cholecystectomy. Trace perihepatic and rigoberto hepatis ascites again noted with mild rigoberto hepatis inflammatory stranding centered around the proximal portion of the duodenum. Patency of the hepatic and portal veins. Left-sided renal sinus cysts again noted. A few small renal cortical cysts are stable. No hydronephrosis. Contrast noted within the right renal collecting system and urinary bladder. Hysterectomy. Atherosclerosis of the aorta. No lymphadenopathy. Mild nonspecific wall thickening of the distal esophagus and duodenum. No bowel obstruction. Colonic diverticulosis. Mild fecal retention. No CT evidence of acute appendicitis. Mild right flank subcutaneous edema. No fluid collections. No acute fracture. IMPRESSION: 1. No significant change compared to the study obtained less than 24 hours earlier. 2. Trace perihepatic ascites with inflammatory stranding again noted within the rigoberto hepatis. Equivocal wall thickening of the duodenum is also noted. Findings should be correlated clinically to exclude peptic ulcer disease. 3. Colonic diverticulosis. 4. Mild subcutaneous edema of the right flank. No abscess. ACT 112: Negative or not required by law. The above report was generated using voice recognition software. It may contain grammatical, syntax or spelling errors. Electronically signed by: Garry Rosenthal M.D. 08/19/2022 4:01 PM Code Status & VTE Plan Code Status Full code in the event of cardiac or respiratory arrest VTE Prophylaxis Plan VTE Prophylaxis will be ordered: Yes Supervising Physician Co-Signing Physician Notes Pt seen and examined by myself, Gay Morris MD on the day of service. Care was coordinated with IRINA Holcomb. Please refer to her note for additional information. 77yoF with confluent erythematous rash on right flank and progressive weakness and abdominal pain that started about a week ago. Ct abd pelvis notes edema below flank lesion without abscess, perihepatic ascitic changes Liver enzymes elevated Consider tick related rash (pt was lyme negative x2) vs. shingles vs. cellulitis vs. other Pending Anaplasma/babesia peripheral smear with DNA, ehrlichia, ricketsial testing GI consultation for recs regarding hepatic changes noted, appreciate recommendations Empiric IV zosyn for abdominal/cellulitis related infection with PO doxycycline for tick/MRSA cellulitis coverage as well Also, continue to monitor flank lesion for progressive shingles changes (lobo earance of vesicular lesions, etc) PPI Otherwise as above
[2022-08-19 17:36] LABS: Lyme Ab IgG w/WB Rflx Negative (Negative); Lyme Ab IgM w/WB Rflx Negative (Negative)
[2022-08-19] MEDS ORDERED: CARBOHYDRATES FOR HYPOGLYCEMIA PO PRN (18:02)
[2022-08-19] MEDS ORDERED: GLUCAGON FOR INJ 1 MG VIAL SQ PRN (18:02)
[2022-08-19] MEDS ORDERED: GLUCOSE 40% GEL 15 GM TUBE PO PRN (18:02)
[2022-08-19] MEDS ORDERED: PHARMACY GLYCEMIC MGMT CONSULT PRN (18:02)
[2022-08-19] MEDS ORDERED: GLUCOSE 10 TAB/TUBE PO PRN (18:02)
[2022-08-19] MEDS ORDERED: DEXTROSE 50% 50 ML SYRINGE IV PRN (18:02)
[2022-08-19] MEDS ORDERED: ARTIFICIAL TEARS OP PRN (18:53)
[2022-08-19] MEDS: PANTOprazole 40 MG in DEXTROSE 5% 100 ML IV SCH ×2 (18:54→23:23)
[2022-08-19] MEDS: INSULIN ASPART PER UNIT CHARGE SC SCH ×2 (19:12→21:33)
[2022-08-19] MEDS: PIPERACILLIN/TAZOBACTAM 4.5 GM in DEXTROSE 5% 100 ML IV SCH (19:44)
[2022-08-19] MEDS: carvediloL 6.25 MG TAB PO SCH (20:29)
[2022-08-19] MEDS: LOSARTAN POTASSIUM 50 MG TAB PO SCH (20:29)
[2022-08-19] MEDS ORDERED: Nursing to Pharmacy Communication SCH (20:45)
[2022-08-19] MEDS ORDERED: ATORVASTATIN 40 MG TAB PO SCH (21:00)
[2022-08-19] MEDS: LANTUS PER UNIT CHARGE SQ SCH (21:33)
[2022-08-19] MEDS ORDERED: MELATONIN 3 MG TAB PO PRN (21:37)
[2022-08-19] MEDS: ACETAMINOPHEN 325 MG TAB PO PRN (21:43)
[2022-08-20] MEDS: PIPERACILLIN/TAZOBACTAM 4.5 GM in DEXTROSE 5% 100 ML IV SCH ×3 (03:07→20:51)
[2022-08-20] MEDS: PANTOprazole 40 MG in DEXTROSE 5% 100 ML IV SCH ×4 (04:00→19:18)
[2022-08-20] MEDS: LEVOTHYROXINE SODIUM 125 MCG TABLET PO SCH (05:30)
[2022-08-20 07:13] LABS: Hematocrit (blood only) 36.6 % (37.0-47.0); Hemoglobin 11.2 g/dl (12.0-16.0); Mean Corpuscular Hemoglobin 23.4 pg (25.0-34.0); Mean Corpuscular Hgb Conc 30.6 g/dL (32.0-36.0); Mean Corpuscular Volume 76.6 fL (80.0-100.0); Mean Platelet Volume 10.8 fL (9.4-12.4); Platelet Count 409 K/uL (130-400); RDW Coefficient of Variation 20.2 % (11.5-14.5); RDW Standard Deviation 54.7 fL (36.4-46.3); Red Blood Count 4.78 M/uL (4.20-5.40); White Blood Count 7.69 K/ul (4.8-10.8)
[2022-08-20 07:32] LABS: Albumin Globulin Ratio 1.2 (0.9-2); Albumin Level 3.6 gm/dl (3.4-5.0); BUN Creatinine Ratio 15.5 (10-20); Bilirubin Direct 0.6 mg/dl (0-0.2); Bilirubin,Total 1.3 mg/dl (0.2-1.0); Calcium 8.9 mg/dl (8.6-10.3); Creatinine Clr Calc Pharmacy 69.5 ml/min; Est GFR (African American) 78.2 ml/min; Est GFR (Non-African American) 67.5 ml/min; Globulin 2.9 gm/dl (2.5-4.0); Potassium 3.6 mmol/L (3.5-5.1); Total Protein 6.5 gm/dl (6.0-8.3)
[2022-08-20 07:58] LABS: Estimated Average Glucose 137 mg/dl; Hemoglobin A1C 6.4 % (4.5-5.6)
[2022-08-20] MEDS: LANTUS PER UNIT CHARGE SQ SCH ×2 (08:53→21:01)
[2022-08-20] MEDS: INSULIN ASPART PER UNIT CHARGE SC SCH ×4 (09:10→20:45)
[2022-08-20] MEDS: CHOLECALCIFEROL 1,000 UNITS 25 MCG TAB PO SCH (09:13)
[2022-08-20] MEDS: CALCIUM 600MG + VIT D 400 IU TAB PO SCH (09:13)
[2022-08-20] MEDS: amLODIPine BESYLATE 5 MG TAB PO SCH (09:14)
[2022-08-20] MEDS: carvediloL 6.25 MG TAB PO SCH ×2 (09:14→20:56)
[2022-08-20] MEDS: ASPIRIN 81 MG ECTAB PO SCH (09:14)
[2022-08-20] MEDS: CEROVITE ADV FORMULA TAB PO SCH (09:14)
[2022-08-20] MEDS: DOXYCYCLINE HYCLATE 100 MG CAP PO SCH ×2 (10:14→20:57)
--- NOTE | 2022-08-20 10:27 | Gastrointestinal Consultation ---
Date of Consultation August 20, 2022 Assessment & Plan (1) Left upper quadrant abdominal pain: Pleasant woman with chronic left upper abdominal tenderness being worked up as an outpatient. She is admitted for celllulitis and tells me her pain is not any different than it has been. I don't feel urgent need to push up her scheduled outpatient procedure but the [facility] GI team will take over tomorrow and I will let them decide. The fluid around the hepatic hilum has been present for a while. The "thickened duodenum" is somewhat iffy as per the readings on CT. History of Present Illness Reason for Consultation: abdominal pain Attending Physician: Roya Rosenthal, DO History of Present Illness 77 year old female admitted for cellulitis on her back. She had a CT that showed "trace perihilar ascites" and one CT showed normal duodenum and the next day the next CT suggested "possible thickened duodenum". She does have some abdominal tenderness and she has been seeing Dr. Caballero for this as an outpatient. She has had a CT and she said they saw the fluid near her liver on that. She is scheduled for an outpatient procedure on 09/11 and she thinks it is for an EGD. Her stomach does not hurt when she eats. It doesn't hurt through the day it is "just tender" Allergies Allergy/AdvReac Type Severity Reaction Status Date / Time nitrofurantoin Allergy Severe TONGUE Verified 02/08/22 13:33 SWELLS Sulfa (Sulfonamide Allergy Unknown Itchiness Verified 02/08/22 13:33 Antibiotics) Home Medications Medication Instructions Recorded Confirmed Type amlodipine 10 mg tablet 10 mg PO QAM 12/02/18 08/19/22 History aspirin 81 mg tablet,delayed 81 mg PO QAM 12/02/18 08/19/22 History release atorvastatin 40 mg tablet 40 mg PO PM 12/02/18 08/19/22 History calcium carbonate 600 mg-vitamin 1 tab PO QAM 12/02/18 08/19/22 History D3 10 mcg (400 unit) chewable tablet (Calcium 600 with Vitamin D3) carvedilol 6.25 mg tablet 6.25 mg PO BID 12/02/18 08/19/22 History cholecalciferol (vitamin D3) 25 1,000 unit PO QAM 12/02/18 08/19/22 History mcg (1,000 unit) capsule (Vitamin D3) cyclobenzaprine 5 mg tablet 5 mg PO TID PRN Muscle Spasm 12/02/18 08/19/22 History cyclosporine 0.05 % eye drops in a 1 drp OPB TID PRN Dry Eye(S) 12/02/18 08/19/22 History dropperette (Restasis) hydrochlorothiazide 25 mg tablet 25 mg PO DIRECTED PRN Edema 12/02/18 08/19/22 History levothyroxine 125 mcg tablet 125 mcg PO QAM 12/02/18 08/19/22 History losartan 100 mg tablet 100 mg PO PM 12/02/18 08/19/22 History meloxicam 15 mg tablet 15 mg PO QAM PRN Pain 12/02/18 08/19/22 History metformin 500 mg tablet,extended 500 mg PO TIDM 12/02/18 08/19/22 History release 24 hr multivitamin 1 tab PO QAM 12/02/18 08/19/22 History olopatadine 0.2 % eye drops 1 drp OPB HS 12/02/18 08/19/22 History (Pataday) vit C,E,zinc,copper-mkeve9q 250 1 cap PO QAM 12/02/18 08/19/22 History mg-lutein 5 mg-zeaxanthin 1 mg capsule (Ocuvite Adult 50 Plus) acetaminophen 500 mg tablet 1,000 mg PO Q6H PRN Pain 11/27/20 08/19/22 History (Tylenol Extra Strength) Prevagen 1 cap PO QDL 02/03/22 08/19/22 History doxycycline hyclate 100 mg capsule 100 mg PO BID 7 days #14 caps 08/18/22 08/19/22 Rx Patient History Medical History (Updated 08/20/22 @ 10:25 by Elida Sharp Jr, MD) Cardiac murmur follows with Dr Young Chronic back pain Colon polyps Diabetes mellitus, type 2 NIDDM GERD (gastroesophageal reflux disease) HTN (hypertension) Hyperlipidemia LBBB (left bundle branch block) Left upper quadrant abdominal pain Surgical History History of appendectomy History of back surgery History of breast augmentation History of cardiac cath possible history --- RICARDO Avalos. no stents if done. Follows Dr. Ramonita Young History of cataract surgery bilateral History of colonoscopy History of endoscopic sinus surgery History of esophagogastroduodenoscopy (EGD) History of hysterectomy LION with BSO History of thyroidectomy, total r/t enlargement History of tonsillectomy and adenoidectomy Hx of cholecystectomy Family History Father FHx: lymphoma Mother Family history of diabetes mellitus Other No family history of adverse response to anesthesia Social History Smoking Status: Former smoker Second Hand Exposure: No; Do You Dip or Chew Tobacco: No; Tobacco Cessation Education Requested by Patient: No Hx Alcohol Use: No Hx Substance Use: No Preferred Language: Faroese Communication Ability: Effective Sales & Service Associate Required: No Beliefs That Will Affect Care: None Current Living Situation: Spouse Other Information That Helps Us Care for You: No Feels Safe at Home: Yes Assistive Devices: Denture - Upper, Denture - Lower and Glasses Review of Systems Review of Systems: All systems reviewed & are unremarkable except as noted in HPI & below Physical Exam Constitutional: WD/WN, vitals as above no acute distress Eyes: PERRL, conjunctivae normal, anicteric sclerae ENMT: external ear and nose normal, oropharynx normal Neck: trachea midline, no thyromegaly Respiratory: normal respiratory effort, lungs clear to auscultation Cardiovascular: RRR, no murmur, no edema Gastrointestinal (Abdomen): Inspection/Auscultation: abdomen normal to inspection and normal bowel sounds Percussion/Palpation: + abdomen tender (midepigastrium and left upper abdomen) and abdomen soft Musculoskeletal: Extremities: no cyanosis and no clubbing Skin: no rashes, warm and dry Neurologic: PERRL, EOMI, accommodation nl, no face palsy, no dysarthria Psychiatric: Orientation: alert and oriented x 3 Results & Data Vital Signs (Past 12 Hours) Vital Signs Temp Pulse Pulse Resp BP Pulse Ox O2 Del Method 08/20/22 07:00 36.8 C 66 20 134/79 93 Room Air 08/20/22 07:02 67 08/20/22 03:27 36.6 C 64 18 118/65 94 Room Air 08/19/22 23:00 36.6 C 65 18 105/62 91 Room Air 08/19/22 23:41 94 Room Air Laboratory Results 08/20/22 08/20/22 08/20/22 Range/Units 07:50 06:33 06:33 WBC (4.8-10.8) K/ul RBC (4.20-5.40) M/uL Hgb (12.0-16.0) g/dl Hct (37.0-47.0) % MCV (80.0-100.0) fL MCH (25.0-34.0) pg MCHC (32.0-36.0) g/dL RDW Std Deviation (36.4-46.3) fL RDW Coeff of Nai (11.5-14.5) % Plt Count (130-400) K/uL MPV (9.4-12.4) fL Immature Gran % (Auto) % Neut % (Auto) % Lymph % (Auto) % Payne % (Auto) % Eos % (Auto) % Baso % (Auto) % Neut # (Auto) (1.40-6.50) K/uL Lymph # (Auto) (1.2-3.4) K/uL Payne # (Auto) (0.11-0.59) K/uL Eos # (Auto) (0-0.50) K/uL Baso # (Auto) (0-0.2) K/uL Immature Gran # (Auto) (0.01-0.20) K/uL Polychromasia Anisocytosis Ovalocytes Acanthocytes (Spur) Sodium 133 L (136-145) mmol/L Potassium 3.6 (3.5-5.1) mmol/L Chloride 101 (98-107) mmol/L Carbon Dioxide 24 (21-32) mmol/L Anion Gap 8 (3-11) BUN 13 (6-23) mg/dl Creatinine 0.84 (0.6-1.2) mg/dl Est Cr Clr Drug Dosing 69.5 ml/min Est GFR ( Amer) 78.2 ml/min Est GFR (Non-Af Amer) 67.5 ml/min BUN/Creatinine Ratio 15.5 (10-20) Glucose 122 H (70-99(Fasting)) mg/dl POC Glucose 133 H (70-99) mg/dl Estimat Average Glucose 137 mg/dl Hemoglobin A1c 6.4 H (4.5-5.6) % Lactate (0.4-2.0) mmol/L Calcium 8.9 (8.6-10.3) mg/dl Phosphorus (2.5-4.9) mg/dl Magnesium (1.7-2.4) mg/dl Total Bilirubin 1.3 H (0.2-1.0) mg/dl Direct Bilirubin 0.6 H (0-0.2) mg/dl AST 59 H (13-39) U/L ALT 55 H (7-52) U/L Alkaline Phosphatase 97 (34-104) U/L Troponin I High Sens (0-14) pg/ml Total Protein 6.5 (6.0-8.3) gm/dl Albumin 3.6 (3.4-5.0) gm/dl Globulin 2.9 (2.5-4.0) gm/dl Albumin/Globulin Ratio 1.2 (0.9-2) Lipase (11-82) U/L Procalcitonin (0-0.5) ng/ml Urine Color Urine Appearance (Clear) Urine pH (4.5-7.5) Ur Specific Springer (1.000-1.030) Urine Protein (Negative) Urine Glucose (UA) (Negative) Urine Ketones (Negative) Urine Blood (Negative) Urine Nitrite (Negative) Urine Bilirubin (Negative) Urine Urobilinogen (Negative) Ur Leukocyte Esterase (Negative) Urine WBC (Auto) (0-5) /hpf Urine RBC (Auto) (0-4) /hpf U Hyaline Cast (Auto) (0-5) /lpf U Epithel Cells (Auto) (0-5) /lpf Urine Bacteria (Auto) (Negative) Adenovirus (PCR) (NotDetected) Anaplasma Smear Babesia Smear B. pertussis DNA (PCR) (NotDetected) B.parapertussis DNA PCR (NotDetected) Lyme Disease IgG Ab (Negative) Lyme Disease IgM Ab (Negative) C. pneumoniae DNA (PCR) (NotDetected) Coronavirus OC43 (PCR) (NotDetected) Coronavirus HKU1 (PCR) (NotDetected) Coronavirus 229E (PCR) (NotDetected) SARS-CoV-2 (PCR) (NotDetected) Coronavirus NL63 (PCR) (NotDetected) Human Metapneumovir PCR (NotDetected) Influenza Type A (PCR) (NotDetected) Influenza Type B (PCR) (NotDetected) M. pneumoniae (PCR) (NotDetected) Parainfluenza 1 (PCR) (NotDetected) Parainfluenza 2 (PCR) (NotDetected) Parainfluenza 3 (PCR) (NotDetected) Parainfluenza 4 (PCR) (NotDetected) RSV (PCR) (NotDetected) Entero/Rhino (PCR) (NotDetected) 08/20/22 08/19/22 08/19/22 Range/Units 06:33 21:31 19:11 WBC 7.69 (4.8-10.8) K/ul RBC 4.78 (4.20-5.40) M/uL Hgb 11.2 L (12.0-16.0) g/dl Hct 36.6 L (37.0-47.0) % MCV 76.6 L (80.0-100.0) fL MCH 23.4 L (25.0-34.0) pg MCHC 30.6 L (32.0-36.0) g/dL RDW Std Deviation 54.7 H (36.4-46.3) fL RDW Coeff of Nai 20.2 H (11.5-14.5) % Plt Count 409 H (130-400) K/uL MPV 10.8 (9.4-12.4) fL Immature Gran % (Auto) % Neut % (Auto) % Lymph % (Auto) % Payne % (Auto) % Eos % (Auto) % Baso % (Auto) % Neut # (Auto) (1.40-6.50) K/uL Lymph # (Auto) (1.2-3.4) K/uL Payne # (Auto) (0.11-0.59) K/uL Eos # (Auto) (0-0.50) K/uL Baso # (Auto) (0-0.2) K/uL Immature Gran # (Auto) (0.01-0.20) K/uL Polychromasia Anisocytosis Ovalocytes Acanthocytes (Spur) Sodium (136-145) mmol/L Potassium (3.5-5.1) mmol/L Chloride (98-107) mmol/L Carbon Dioxide (21-32) mmol/L Anion Gap (3-11) BUN (6-23) mg/dl Creatinine (0.6-1.2) mg/dl Est Cr Clr Drug Dosing ml/min Est GFR ( Amer) ml/min Est GFR (Non-Af Amer) ml/min BUN/Creatinine Ratio (10-20) Glucose (70-99(Fasting)) mg/dl POC Glucose 144 H 116 H (70-99) mg/dl Estimat Average Glucose mg/dl Hemoglobin A1c (4.5-5.6) % Lactate (0.4-2.0) mmol/L Calcium (8.6-10.3) mg/dl Phosphorus (2.5-4.9) mg/dl Magnesium (1.7-2.4) mg/dl Total Bilirubin (0.2-1.0) mg/dl Direct Bilirubin (0-0.2) mg/dl AST (13-39) U/L ALT (7-52) U/L Alkaline Phosphatase (34-104) U/L Troponin I High Sens (0-14) pg/ml Total Protein (6.0-8.3) gm/dl Albumin (3.4-5.0) gm/dl Globulin (2.5-4.0) gm/dl Albumin/Globulin Ratio (0.9-2) Lipase (11-82) U/L Procalcitonin (0-0.5) ng/ml Urine Color Urine Appearance (Clear) Urine pH (4.5-7.5) Ur Specific Springer (1.000-1.030) Urine Protein (Negative) Urine Glucose (UA) (Negative) Urine Ketones (Negative) Urine Blood (Negative) Urine Nitrite (Negative) Urine Bilirubin (Negative) Urine Urobilinogen (Negative) Ur Leukocyte Esterase (Negative) Urine WBC (Auto) (0-5) /hpf Urine RBC (Auto) (0-4) /hpf U Hyaline Cast (Auto) (0-5) /lpf U Epithel Cells (Auto) (0-5) /lpf Urine Bacteria (Auto) (Negative) Adenovirus (PCR) (NotDetected) Anaplasma Smear See Comment Babesia Smear See Comment B. pertussis DNA (PCR) (NotDetected) B.parapertussis DNA PCR (NotDetected) Lyme Disease IgG Ab (Negative) Lyme Disease IgM Ab (Negative) C. pneumoniae DNA (PCR) (NotDetected) Coronavirus OC43 (PCR) (NotDetected) Coronavirus HKU1 (PCR) (NotDetected) Coronavirus 229E (PCR) (NotDetected) SARS-CoV-2 (PCR) (NotDetected) Coronavirus NL63 (PCR) (NotDetected) Human Metapneumovir PCR (NotDetected) Influenza Type A (PCR) (NotDetected) Influenza Type B (PCR) (NotDetected) M. pneumoniae (PCR) (NotDetected) Parainfluenza 1 (PCR) (NotDetected) Parainfluenza 2 (PCR) (NotDetected) Parainfluenza 3 (PCR) (NotDetected) Parainfluenza 4 (PCR) (NotDetected) RSV (PCR) (NotDetected) Entero/Rhino (PCR) (NotDetected) 08/19/22 08/19/22 08/19/22 Range/Units 17:57 16:50 15:51 WBC (4.8-10.8) K/ul RBC (4.20-5.40) M/uL Hgb (12.0-16.0) g/dl Hct (37.0-47.0) % MCV (80.0-100.0) fL MCH (25.0-34.0) pg MCHC (32.0-36.0) g/dL RDW Std Deviation (36.4-46.3) fL RDW Coeff of Nai (11.5-14.5) % Plt Count (130-400) K/uL MPV (9.4-12.4) fL Immature Gran % (Auto) % Neut % (Auto) % Lymph % (Auto) % Payne % (Auto) % Eos % (Auto) % Baso % (Auto) % Neut # (Auto) (1.40-6.50) K/uL Lymph # (Auto) (1.2-3.4) K/uL Payne # (Auto) (0.11-0.59) K/uL Eos # (Auto) (0-0.50) K/uL Baso # (Auto) (0-0.2) K/uL Immature Gran # (Auto) (0.01-0.20) K/uL Polychromasia Anisocytosis Ovalocytes Acanthocytes (Spur) Sodium (136-145) mmol/L Potassium (3.5-5.1) mmol/L Chloride (98-107) mmol/L Carbon Dioxide (21-32) mmol/L Anion Gap (3-11) BUN (6-23) mg/dl Creatinine (0.6-1.2) mg/dl Est Cr Clr Drug Dosing ml/min Est GFR ( Amer) ml/min Est GFR (Non-Af Amer) ml/min BUN/Creatinine Ratio (10-20) Glucose (70-99(Fasting)) mg/dl POC Glucose (70-99) mg/dl Estimat Average Glucose mg/dl Hemoglobin A1c (4.5-5.6) % Lactate (0.4-2.0) mmol/L Calcium (8.6-10.3) mg/dl Phosphorus (2.5-4.9) mg/dl Magnesium (1.7-2.4) mg/dl Total Bilirubin (0.2-1.0) mg/dl Direct Bilirubin (0-0.2) mg/dl AST (13-39) U/L ALT (7-52) U/L Alkaline Phosphatase (34-104) U/L Troponin I High Sens 16.8 H (0-14) pg/ml Total Protein (6.0-8.3) gm/dl Albumin (3.4-5.0) gm/dl Globulin (2.5-4.0) gm/dl Albumin/Globulin Ratio (0.9-2) Lipase (11-82) U/L Procalcitonin (0-0.5) ng/ml Urine Color Dark Yellow Urine Appearance Cloudy A (Clear) Urine pH 5.5 (4.5-7.5) Ur Specific Springer > 1.045 H (1.000-1.030) Urine Protein 1+ H (Negative) Urine Glucose (UA) Negative (Negative) Urine Ketones Trace H (Negative) Urine Blood Negative (Negative) Urine Nitrite Negative (Negative) Urine Bilirubin Negative (Negative) Urine Urobilinogen Negative (Negative) Ur Leukocyte Esterase 1+ H (Negative) Urine WBC (Auto) 10-30 H (0-5) /hpf Urine RBC (Auto) 10-30 H (0-4) /hpf U Hyaline Cast (Auto) 1-5 (0-5) /lpf U Epithel Cells (Auto) >30 H (0-5) /lpf Urine Bacteria (Auto) Negative (Negative) Adenovirus (PCR) (NotDetected) Anaplasma Smear Babesia Smear B. pertussis DNA (PCR) (NotDetected) B.parapertussis DNA PCR (NotDetected) Lyme Disease IgG Ab Negative (Negative) Lyme Disease IgM Ab Negative (Negative) C. pneumoniae DNA (PCR) (NotDetected) Coronavirus OC43 (PCR) (NotDetected) Coronavirus HKU1 (PCR) (NotDetected) Coronavirus 229E (PCR) (NotDetected) SARS-CoV-2 (PCR) (NotDetected) Coronavirus NL63 (PCR) (NotDetected) Human Metapneumovir PCR (NotDetected) Influenza Type A (PCR) (NotDetected) Influenza Type B (PCR) (NotDetected) M. pneumoniae (PCR) (NotDetected) Parainfluenza 1 (PCR) (NotDetected) Parainfluenza 2 (PCR) (NotDetected) Parainfluenza 3 (PCR) (NotDetected) Parainfluenza 4 (PCR) (NotDetected) RSV (PCR) (NotDetected) Entero/Rhino (PCR) (NotDetected) 08/19/22 08/19/22 08/19/22 Range/Units 14:15 14:12 14:12 WBC (4.8-10.8) K/ul RBC (4.20-5.40) M/uL Hgb (12.0-16.0) g/dl Hct (37.0-47.0) % MCV (80.0-100.0) fL MCH (25.0-34.0) pg MCHC (32.0-36.0) g/dL RDW Std Deviation (36.4-46.3) fL RDW Coeff of Nai (11.5-14.5) % Plt Count (130-400) K/uL MPV (9.4-12.4) fL Immature Gran % (Auto) % Neut % (Auto) % Lymph % (Auto) % Payne % (Auto) % Eos % (Auto) % Baso % (Auto) % Neut # (Auto) (1.40-6.50) K/uL Lymph # (Auto) (1.2-3.4) K/uL Payne # (Auto) (0.11-0.59) K/uL Eos # (Auto) (0-0.50) K/uL Baso # (Auto) (0-0.2) K/uL Immature Gran # (Auto) (0.01-0.20) K/uL Polychromasia Anisocytosis Ovalocytes Acanthocytes (Spur) Sodium (136-145) mmol/L Potassium (3.5-5.1) mmol/L Chloride (98-107) mmol/L Carbon Dioxide (21-32) mmol/L Anion Gap (3-11) BUN (6-23) mg/dl Creatinine (0.6-1.2) mg/dl Est Cr Clr Drug Dosing ml/min Est GFR ( Amer) ml/min Est GFR (Non-Af Amer) ml/min BUN/Creatinine Ratio (10-20) Glucose (70-99(Fasting)) mg/dl POC Glucose (70-99) mg/dl Estimat Average Glucose mg/dl Hemoglobin A1c (4.5-5.6) % Lactate 1.5 (0.4-2.0) mmol/L Calcium (8.6-10.3) mg/dl Phosphorus (2.5-4.9) mg/dl Magnesium (1.7-2.4) mg/dl Total Bilirubin (0.2-1.0) mg/dl Direct Bilirubin (0-0.2) mg/dl AST (13-39) U/L ALT (7-52) U/L Alkaline Phosphatase (34-104) U/L Troponin I High Sens (0-14) pg/ml Total Protein (6.0-8.3) gm/dl Albumin (3.4-5.0) gm/dl Globulin (2.5-4.0) gm/dl Albumin/Globulin Ratio (0.9-2) Lipase (11-82) U/L Procalcitonin 0.23 (0-0.5) ng/ml Urine Color Urine Appearance (Clear) Urine pH (4.5-7.5) Ur Specific Springer (1.000-1.030) Urine Protein (Negative) Urine Glucose (UA) (Negative) Urine Ketones (Negative) Urine Blood (Negative) Urine Nitrite (Negative) Urine Bilirubin (Negative) Urine Urobilinogen (Negative) Ur Leukocyte Esterase (Negative) Urine WBC (Auto) (0-5) /hpf Urine RBC (Auto) (0-4) /hpf U Hyaline Cast (Auto) (0-5) /lpf U Epithel Cells (Auto) (0-5) /lpf Urine Bacteria (Auto) (Negative) Adenovirus (PCR) Not Detected (NotDetected) Anaplasma Smear Babesia Smear B. pertussis DNA (PCR) Not Detected (NotDetected) B.parapertussis DNA PCR Not Detected (NotDetected) Lyme Disease IgG Ab (Negative) Lyme Disease IgM Ab (Negative) C. pneumoniae DNA (PCR) Not Detected (NotDetected) Coronavirus OC43 (PCR) Not Detected (NotDetected) Coronavirus HKU1 (PCR) Not Detected (NotDetected) Coronavirus 229E (PCR) Not Detected (NotDetected) SARS-CoV-2 (PCR) Not Detected (NotDetected) Coronavirus NL63 (PCR) Not Detected (NotDetected) Human Metapneumovir PCR Not Detected (NotDetected) Influenza Type A (PCR) Not Detected (NotDetected) Influenza Type B (PCR) Not Detected (NotDetected) M. pneumoniae (PCR) Not Detected (NotDetected) Parainfluenza 1 (PCR) Not Detected (NotDetected) Parainfluenza 2 (PCR) Not Detected (NotDetected) Parainfluenza 3 (PCR) Not Detected (NotDetected) Parainfluenza 4 (PCR) Not Detected (NotDetected) RSV (PCR) Not Detected (NotDetected) Entero/Rhino (PCR) Not Detected (NotDetected) 08/19/22 08/19/22 Range/Units 14:12 14:12 WBC 11.35 H (4.8-10.8) K/ul RBC 5.18 (4.20-5.40) M/uL Hgb 12.2 (12.0-16.0) g/dl Hct 39.1 (37.0-47.0) % MCV 75.5 L (80.0-100.0) fL MCH 23.6 L (25.0-34.0) pg MCHC 31.2 L (32.0-36.0) g/dL RDW Std Deviation 53.6 H (36.4-46.3) fL RDW Coeff of Nai 20.5 H (11.5-14.5) % Plt Count 492 H (130-400) K/uL MPV 10.9 (9.4-12.4) fL Immature Gran % (Auto) 0.7 % Neut % (Auto) 86.1 % Lymph % (Auto) 7.0 % Payne % (Auto) 5.4 % Eos % (Auto) 0.3 % Baso % (Auto) 0.5 % Neut # (Auto) 9.77 H (1.40-6.50) K/uL Lymph # (Auto) 0.80 L (1.2-3.4) K/uL Payne # (Auto) 0.61 H (0.11-0.59) K/uL Eos # (Auto) 0.03 (0-0.50) K/uL Baso # (Auto) 0.06 (0-0.2) K/uL Immature Gran # (Auto) 0.08 (0.01-0.20) K/uL Polychromasia 1+ Anisocytosis Present Ovalocytes 1+ Acanthocytes (Spur) 1+ Sodium 133 L (136-145) mmol/L Potassium 3.7 (3.5-5.1) mmol/L Chloride 98 (98-107) mmol/L Carbon Dioxide 26 (21-32) mmol/L Anion Gap 9 (3-11) BUN 14 (6-23) mg/dl Creatinine 0.82 (0.6-1.2) mg/dl Est Cr Clr Drug Dosing 70.9 ml/min Est GFR ( Amer) 80.6 ml/min Est GFR (Non-Af Amer) 69.5 ml/min BUN/Creatinine Ratio 17.1 (10-20) Glucose 123 H (70-99(Fasting)) mg/dl POC Glucose (70-99) mg/dl Estimat Average Glucose mg/dl Hemoglobin A1c (4.5-5.6) % Lactate (0.4-2.0) mmol/L Calcium 9.1 (8.6-10.3) mg/dl Phosphorus 2.3 L (2.5-4.9) mg/dl Magnesium 1.8 (1.7-2.4) mg/dl Total Bilirubin 1.3 H (0.2-1.0) mg/dl Direct Bilirubin 0.6 H (0-0.2) mg/dl AST 50 H (13-39) U/L ALT 55 H (7-52) U/L Alkaline Phosphatase 97 (34-104) U/L Troponin I High Sens 16.2 H D (0-14) pg/ml Total Protein 7.2 (6.0-8.3) gm/dl Albumin 3.9 (3.4-5.0) gm/dl Globulin (2.5-4.0) gm/dl Albumin/Globulin Ratio (0.9-2) Lipase 35 (11-82) U/L Procalcitonin (0-0.5) ng/ml Urine Color Urine Appearance (Clear) Urine pH (4.5-7.5) Ur Specific Springer (1.000-1.030) Urine Protein (Negative) Urine Glucose (UA) (Negative) Urine Ketones (Negative) Urine Blood (Negative) Urine Nitrite (Negative) Urine Bilirubin (Negative) Urine Urobilinogen (Negative) Ur Leukocyte Esterase (Negative) Urine WBC (Auto) (0-5) /hpf Urine RBC (Auto) (0-4) /hpf U Hyaline Cast (Auto) (0-5) /lpf U Epithel Cells (Auto) (0-5) /lpf Urine Bacteria (Auto) (Negative) Adenovirus (PCR) (NotDetected) Anaplasma Smear Babesia Smear B. pertussis DNA (PCR) (NotDetected) B.parapertussis DNA PCR (NotDetected) Lyme Disease IgG Ab (Negative) Lyme Disease IgM Ab (Negative) C. pneumoniae DNA (PCR) (NotDetected) Coronavirus OC43 (PCR) (NotDetected) Coronavirus HKU1 (PCR) (NotDetected) Coronavirus 229E (PCR) (NotDetected) SARS-CoV-2 (PCR) (NotDetected) Coronavirus NL63 (PCR) (NotDetected) Human Metapneumovir PCR (NotDetected) Influenza Type A (PCR) (NotDetected) Influenza Type B (PCR) (NotDetected) M. pneumoniae (PCR) (NotDetected) Parainfluenza 1 (PCR) (NotDetected) Parainfluenza 2 (PCR) (NotDetected) Parainfluenza 3 (PCR) (NotDetected) Parainfluenza 4 (PCR) (NotDetected) RSV (PCR) (NotDetected) Entero/Rhino (PCR) (NotDetected) Diagnostic Findings Chest X-Ray 08/19/22 13:48 XR chest 1V portable HISTORY: 77 years-old Female Sepsis COMPARISON: 08/18/2022 TECHNIQUE: AP view of the chest FINDINGS: Cardiac silhouette is enlarged. No pneumothorax, pleural effusion, airspace consolidation or overt pulmonary edema. Degenerative changes of the shoulders and spine. IMPRESSION: No acute process. ACT 112: Negative or not required by law. The above report was generated using voice recognition software. It may contain grammatical, syntax or spelling errors. Electronically signed by: Garry Rosenthal M.D. 08/19/2022 2:[address] 08/19/22 14:17 CT head/brain wo con CLINICAL HISTORY: 77 years-old Female with sepsis, ams. Acutely altered mental status TECHNIQUE: Multiple axial CT images of the head were obtained without contrast. A dose lowering technique was utilized adhering to the principles of ALARA. COMPARISON: 04/16/2019 FINDINGS: No acute intracranial hemorrhage, midline shift, intracranial mass, hydrocephalus, territorial ischemia or abnormal extra-axial collection. Involutional changes with white matter hypodensities suggestive of chronic microvascular ischemic disease. The calvarium is intact. Prior bilateral lens repair. The paranasal sinuses, mastoid air cells, and middle ear cavities are clear. IMPRESSION: No acute intracranial abnormality. ACT 112: Negative or not required by law. The above report was generated using voice recognition software. It may contain grammatical, syntax or spelling errors. Electronically signed by: Garry Rosenthal M.D. 08/19/2022 3:24 PM Abdomen/Pelvis CT 08/19/22 14:[address] WITH IV CONTRAST CT DOSE: 2288.16 mGy.cm HISTORY: Acute sepsis with right-sided flank pain sepsis, progressive right flank cellulitis TECHNIQUE: Multiaxial CT images of the abdomen and pelvis were performed following the IV administration of 82 cc of Optiray, A dose lowering technique was utilized adhering to the principles of ALARA. COMPARISON STUDY: 08/18/2022 FINDINGS: Bilateral breast implants. Cardiomegaly with coronary artery calcifications. Trace left pleural effusion with mild subsegmental bibasilar atelectasis. No pneumatosis or pneumoperitoneum. Spleen is mildly enlarged, 13 cm with scattered calcified granulomata. Unremarkable pancreas and adrenal glands. Cholecystectomy. Trace perihepatic and rigoberto hepatis ascites again noted with mild rigoberto hepatis inflammatory stranding centered around the proximal portion of the duodenum. Patency of the hepatic and portal veins. Left-sided renal sinus cysts again noted. A few small renal cortical cysts are stable. No hydronephrosis. Contrast noted within the right renal collecting system and urinary bladder. Hysterectomy. Atherosclerosis of the aorta. No lymphadenopathy. Mild nonspecific wall thickening of the distal esophagus and duodenum. No bowel obstruction. Colonic diverticulosis. Mild fecal retention. No CT evidence of acute appendicitis. Mild right flank subcutaneous edema. No fluid collections. No acute fracture. IMPRESSION: 1. No significant change compared to the study obtained less than 24 hours earlier. 2. Trace perihepatic ascites with inflammatory stranding again noted within the rigoberto hepatis. Equivocal wall thickening of the duodenum is also noted. Findings should be correlated clinically to exclude peptic ulcer disease. 3. Colonic diverticulosis. 4. Mild subcutaneous edema of the right flank. No abscess. ACT 112: Negative or not required by law. The above report was generated using voice recognition software. It may contain grammatical, syntax or spelling errors. Electronically signed by: Garry Rosenthal M.D. 08/19/2022 4:01 PM
--- NOTE | 2022-08-20 10:39 | Pharmacy Report ---
Pharmacy Glycemic Short Note 2 - Date of Service August 20, 2022 - Glycemic Short BSG Results (Last 24 hours): 08/19/22 08/19/22 08/19/22 14:12 19:11 21:31 Glucose 123 H POC Glucose 116 H 144 H 08/20/22 08/20/22 06:33 07:50 Glucose 122 H POC Glucose 133 H OUTPATIENT ANTIDIABETIC REGIMEN: * Metformin 500 mg PO TID * HbA1c = 6.4% on 08/20/22 ASSESSMENT: * 77 y/o F admitted for Cellulitis. She has history of Type 2 diabetes, well controlled on only oral Metformin at home. * Patient was started on Novolog stress of 2 and Lantus dose scale 0-4 units BID yesterday. * BSGs have been stable and controlled. She has not received any basal insulin so far. Will continue the low basal dose scale BID. * Continued Novolog parameters the same as yesterday. PLAN FOR INPATIENT GLYCEMIC CONTROL: * Hold outpatient oral diabetes medications * Basal insulin * Lantus 0-4 units SQ BID * Bolus insulin * NovoLog per scale ACHS or Q6hrs while NPO * Goal Range: Low 110 mg/dL - High 140 mg/dL * Correction Factor: 25 mg/dL/unit * Nutritional / Prandial insulin per carb ratio of 1 unit per 8 grams CHO consumed
--- NOTE | 2022-08-20 10:41 | Hospitalist Progress Note ---
Date of Service August 20, 2022 Assessment & Plan (1) Cellulitis: (2) HTN (hypertension): (3) Dyslipidemia: (4) Chronic back pain: (5) Diabetes mellitus, type 2: Plan 77 y/o presents with right flank pain, dizziness, fevers x1 week. A/P CT shows PUD and perihepatic ascites. Started on Protonix gtt in ED. Follows with GI as outpatient for epigastric pain and postprandial symptoms. HFrEF follows with Dr. Young as outpatient. Cellulitis: Right flank tenderness and pain to touch A/P CT: Mild subcutaneous edema of the right flank. No abscess. Lyme negative. reports having a tick bite a few weeks ago Blood cultures pending Consider shingles as Ddx-with her description of pain, went ahead and started valtrex, but this is low probability and likely more so of an erythema migrans from a tick or a bacterial cellulitis or both. Noted h/o Shingrix per outpatietn record review Hydrocortisone cream for antiinflammatory effect Continue doxycycline + Zosyn for now PUD: AP CT: Trace perihepatic ascites with inflammatory stranding again noted within the rigoberto hepatis. Equivocal wall thickening of the duodenum is also noted. Findings should be correlated clinically to exclude peptic ulcer disease. She clearly has epigastric TTP and LUQ and RUQ tenderness to palpation. Cont protonix drip. Appreciate GI recommendations. HFrEF: chronic, compensated. An echo was performed 08/10/2022: LVEF reduced 40 to 44%. Cont medical management of coreg, losartan Defer to outpatient office supervisor/PCP for additional GDMT for optimization. HTN: chronic, stable. Takes Amlodipine, Coreg, Losartan; continue Dyslipidemia: Takes Atorvastatin; continue Diabetes mellitus type 2: Takes Metformin; will hold while here Takes Gabapentin for neuropathy ACHS FSBS SSI Consider starting jardiance for HF and DMII closer to discharge. Chronic back pain: Tylenol PRN Hypothyroidism: chronic, stable. Cont current medical therapy Disposition: PCP: Dr. Angel CODE STATUS: Full code VTE prophylaxis: Lovenox I spent a total [id number] coordinating, documenting, and providing care for this patient excluding time spent in the performance of separately billed services Roya Rosenthal DO [facility] Hospitalist Admission and Anticipated Discharge Date Admission Date: August 19, 2022 Subjective 77-year-old female presented with right flank pain. Per outpatient record review she is a diabetic who has been reporting epigastric abdominal pain x1 month described as upper abdominal pressure distention and a fluttering in her stomach. She had a cardiac work-up and was evaluated by a nuclear stress test and echocardiogram as outpatient with a Zio patch revealing predominant underlying sinus rhythm with an intraventricular conduction delay present. Twenty-five SVT runs occurred. Echo revealed EF 40-44% with some lypokinesis noted, and Lexiscan stress demonstrated a small fixed apical defect consistent with scar versus artifact. At the onset her pain was described as constant but then it became more postprandial and was associate with bloating. There was no nausea or vomiting. She did get a sensation to burp and belch. She will tend to get reflux when this happens but denies any heartburn or dysphagia. She has had chronic constipation and drinks prune juice every 2 to 3 days to feel better. Denied black or bloody stools and weight was stable. This was per outpatient GI note on 07/25. An upper endoscopy was scheduled as outpatient in September for further investigation. A CT abdomen pelvis with IV and oral contrast was performed on 08/11 and this revealed no acute abnormality. Specifically there was diffuse fatty infiltration with an enlarged liver and evidence of a prior cholecystectomy. Pancreas appeared normal. There was a renal cortical cyst formation on the left with dilation of the left renal pelvis appearing to be due to for partial UPJ obstruction. Diverticular disease was seen within the colon with a moderate amount of stool present. Her CT scan of the abdomen pelvis was repeated at least twice. It is currently showing trace perihepatic ascites with inflammatory stranding noted in the rigoberto hepatis. Equivocal wall thickening of the duodenum is also noted with concern for possible peptic ulcer disease. Today she reports no abdominal symptoms and did not come in for that. She states that her rash on the posterior right back has been ongoing for the past 1.5 weeks and is itchy and irritating. She has not been on antibiotics for more than one day prior to returning and being placed on broader IV abx and doxycycline. She is feeling slightly better today. There is a small elevation that is dark in color in the center of the area of erythema on posterior right flank which appears to be a seborrheic keratosis, however, the patient reports this is new. Afebrile. Asking for "something to help with sleep" "melatonin didn't work". Review of Systems Review of Systems: All systems reviewed negative symptoms indicated above. Physical Exam Physical Exam: CONSTITUTIONAL: WNWD, vitals as above, generally well-appearing, NAD EYES: normal conjunctivae, no scleral icterus ENT: external ear and nose normal, MMM NECK: trachea midline RESPIRATORY: clear to auscultation bilaterally, no crackles, rales or wheezes, normal respiratory effort CARDIOVASCULAR: regular rate and rhythm, S1 and 2 heard without murmurs, gallops or rubs, no JVD, no peripheral edema CHEST: inspection of chest was normal GASTROINTESTINAL: soft, nontender, ND, no guarding MUSCULOSKELETAL: generalized weakness, head is normocephalic and atraumatic, SKIN: warm and dry, square confluent rash without any raised areas or wounds. There are no blisters or pustules present. She has a small raised brown area that appears similar to an SK with a greasy suck on appearance NEUROLOGIC: CN 2-12 grossly intact, no sensory deficit, normal cognition, normal speech, no tremor PSYCHIATRIC: alert cooperative and oriented to person, place and time. Results & Data Results & Data Vital Signs (Past 12 Hours) Vital Signs Temp Pulse Pulse Resp BP Pulse Ox O2 Del Method 08/20/22 07:00 36.8 C 66 20 134/79 93 Room Air 08/20/22 07:02 67 08/20/22 03:27 36.6 C 64 18 118/65 94 Room Air 08/19/22 23:00 36.6 C 65 18 105/62 91 Room Air 08/19/22 23:41 94 Room Air Laboratory Results Short CBC 08/19/22 08/20/22 Range/Units 14:12 06:33 WBC 11.35 H 7.69 (4.8-10.8) K/ul Hgb 12.2 11.2 L (12.0-16.0) g/dl Hct 39.1 36.6 L (37.0-47.0) % Plt Count 492 H 409 H (130-400) K/uL BMP 08/19/22 08/20/22 14:12 06:33 Sodium 133 L 133 L Potassium 3.7 3.6 Chloride 98 101 Carbon Dioxide 26 24 BUN 14 13 Creatinine 0.82 0.84 Glucose 123 H 122 H Calcium 9.1 8.9 Liver Function 08/19/22 08/20/22 Range/Units 14:12 06:33 Total Bilirubin 1.3 H 1.3 H (0.2-1.0) mg/dl Direct Bilirubin 0.6 H 0.6 H (0-0.2) mg/dl AST 50 H 59 H (13-39) U/L ALT 55 H 55 H (7-52) U/L Alkaline Phosphatase 97 97 (34-104) U/L Albumin 3.9 3.6 (3.4-5.0) gm/dl Urine 08/19/22 Range/Units 15:51 Urine Color Dark Yellow Urine Appearance Cloudy A (Clear) Urine pH 5.5 (4.5-7.5) Ur Specific [place] > 1.045 H (1.000-1.030) Urine Protein 1+ H (Negative) Urine Glucose (UA) Negative (Negative) Medications Administered Current Inpatient Medications Acetaminophen (Acetaminophen 325 Mg Tab) 650 mg PO Q4H PRN PRN Reason: Pain or Fever Stop: 09/18/22 16:37 Last Admin: 08/19/22 21:43 Dose: 650 mg Al Hydrox/Mg Hydrox/Simethicone (Aluminum/Magnesium Susp 30 Ml Udc) 15 ml PO Q4H PRN PRN Reason: Dyspepsia Stop: 09/18/22 16:37 Amlodipine Besylate (Amlodipine Besylate 5 Mg Tab) 10 mg PO [facility] Stop: 09/19/22 08:59 Last Admin: 08/20/22 09:14 Dose: 10 mg Artificial Tears (Artificial Tears) 1 drops OP TID PRN PRN Reason: Dry Eye(S) Stop: 09/18/22 18:52 Aspirin (Aspirin 81 Mg Ectab) [facility] Stop: 09/19/22 08:59 Last Admin: 08/20/22 09:14 Dose: 81 mg Atorvastatin Calcium (Atorvastatin 40 Mg Tab) 40 mg PO PM [facility] Stop: 09/18/22 20:59 Calcium/Vitamin D (Calcium 600mg + Vit D 400 Iu Tab) 1 [facility] Stop: 09/19/22 08:59 Last Admin: 08/20/22 09:13 Dose: 1 tab Carvedilol (Carvedilol 6.25 Mg Tab) 6.25 mg PO BID [facility] Stop: 09/18/22 20:59 Last Admin: 08/20/22 09:14 Dose: 6.25 mg Dextrose (Dextrose 50% 50 Ml Syringe) 25 - 50 ml IV UD PRN; Protocol PRN Reason: Hypoglycemia Protocol Stop: 09/18/22 18:01 Doxycycline Hyclate (Doxycycline Hyclate 100 Mg Cap) 100 mg PO BID [facility] Stop: 08/22/22 08:59 Last Admin: 08/20/22 10:14 Dose: 100 mg Glucagon (Glucagon For Inj 1 Mg Vial) 1 mg SQ UD PRN; Protocol PRN Reason: Hypoglycemia Protocol Stop: 09/18/22 18:01 Glucose (Glucose 10 Tab/Tube) 4 - 8 tab PO UD PRN; Protocol PRN Reason: Hypoglycemia Treatment Stop: 09/18/22 18:01 Glucose (Glucose 40% Gel 15 Gm Tube) 15 - 30 gm PO UD PRN; Protocol PRN Reason: Hypoglycemia Protocol Stop: 09/18/22 18:01 Hydrochlorothiazide (Hydrochlorothiazide 25 Mg Tab) 25 mg PO MoWeFr@0900 PRN PRN Reason: Edema Stop: 09/20/22 08:59 Pantoprazole Sodium 40 mg/ (Dextrose) 100 mls @ 20 mls/hr IV Q5H [facility] Stop: 09/18/22 16:44 Last Admin: 08/20/22 09:10 Dose: 8 mg/hr, 20 mls/hr Piperacillin Sod/Tazobactam (Sod 4.5 gm/ Dextrose) 120 mls @ 30 mls/hr IV Q8H [facility]; Protocol Stop: 08/26/22 19:59 Last Infusion: 08/20/22 07:13 Dose: Infused Insulin Aspart (Insulin Aspart Per Unit Charge) 0 units SC ACHS [facility] Stop: 09/18/22 19:29 Last Admin: 08/20/22 09:10 Dose: 5 units Insulin Glargine (Lantus Per Unit Charge) 0 units SQ BID [facility]; Protocol Stop: 09/18/22 20:59 Last Admin: 08/20/22 08:53 Dose: Not Given Levothyroxine Sodium (Levothyroxine Sodium 125 Mcg Tablet) 125 mcg PO DAILYBB [facility] Stop: 09/19/22 06:29 Last Admin: 08/20/22 05:30 Dose: 125 mcg Losartan Potassium (Losartan Potassium 50 Mg Tab) 100 mg PO PM [facility] Stop: 09/18/22 20:59 Last Admin: 08/19/22 20:29 Dose: 100 mg Magnesium Hydroxide (Magnesium Hydroxide Susp 30 Ml Udc) 30 ml PO Q12H PRN PRN Reason: Constipation Stop: 09/18/22 16:37 Melatonin (Melatonin 3 Mg Tab) 3 mg PO HS PRN PRN Reason: Sleep Stop: 09/18/22 21:36 Last Admin: 08/19/22 21:43 Dose: 3 mg Miscellaneous (Carbohydrates For Hypoglycemia ) 15 - 30 gm PO UD PRN PRN Reason: Hypoglycemia Protocol Stop: 09/18/22 18:01 Miscellaneous (Olopatadine [Pataday] 0.2 % Drops - Order Awaiting Action) 1 each N/A QS [facility] Stop: 09/19/22 00:00 Last Admin: 08/20/22 08:51 Dose: Not Given Miscellaneous Information (Pharmacy Glycemic Mgmt Consult) 1 each N/A UD PRN PRN Reason: Consult Stop: 09/18/22 18:01 Multivitamins/Minerals (Cerovite Adv Formula Tab) 1 [facility] Stop: 09/19/22 08:59 Last Admin: 08/20/22 09:14 Dose: 1 tab Ondansetron HCl (Ondansetron Inj 2 Mg/Ml 2 Ml Vial) 4 mg IV Q6H PRN PRN Reason: Nausea Stop: 09/18/22 16:37 Polyethylene Glycol (Polyethylene (Miralax) 17 Gm Pack) 17 gm PO DAILY PRN PRN Reason: Constipation Stop: 09/18/22 16:37 Vitamin D (Cholecalciferol 1,000 Units 25 Mcg Tab) 1,000 units PO QAM [facility] Stop: 09/19/22 08:59 Last Admin: 08/20/22 09:13 Dose: 1,000 units (1) Cellulitis Site of cellulitis of trunk: back
[2022-08-20] MEDS ORDERED: diphenhydrAMINE Capsule 25 MG CAP PO PRN (11:58)
[2022-08-20] MEDS: valACYclovir HCL 500 MG TABLET PO SCH ×2 (13:16→20:58)
[2022-08-20] MEDS: ENOXAPARIN INJ 40 MG/0.4 ML SYR SQ SCH (16:17)
[2022-08-20] MEDS: HYDROCORTISONE VAL 0.2% CRM 15GM TUBE EXT SCH ×2 (16:18→20:58)
[2022-08-20] MEDS: LOSARTAN POTASSIUM 50 MG TAB PO SCH (20:58)
[2022-08-20] MEDS: ACETAMINOPHEN 325 MG TAB PO PRN (20:59)
[2022-08-20] MEDS ORDERED: ZOLPIDEM TARTRATE 5 MG TAB PO SCH (21:00)
[2022-08-21] MEDS: PANTOprazole 40 MG in DEXTROSE 5% 100 ML IV SCH ×2 (00:04→04:40)
[2022-08-21] MEDS: PIPERACILLIN/TAZOBACTAM 4.5 GM in DEXTROSE 5% 100 ML IV SCH ×2 (04:41→12:13)
[2022-08-21] MEDS: valACYclovir HCL 500 MG TABLET PO SCH ×2 (04:45→12:12)
[2022-08-21] MEDS: LEVOTHYROXINE SODIUM 125 MCG TABLET PO SCH (06:13)
[2022-08-21 07:04] LABS: Hematocrit (blood only) 36.9 % (37.0-47.0); Hemoglobin 11.2 g/dl (12.0-16.0); Mean Corpuscular Hemoglobin 23.1 pg (25.0-34.0); Mean Corpuscular Hgb Conc 30.4 g/dL (32.0-36.0); Mean Corpuscular Volume 76.1 fL (80.0-100.0); Mean Platelet Volume 10.8 fL (9.4-12.4); Platelet Count 471 K/uL (130-400); RDW Standard Deviation 53.5 fL (36.4-46.3); Red Blood Count 4.85 M/uL (4.20-5.40); White Blood Count 8.52 K/ul (4.8-10.8)
[2022-08-21 07:23] LABS: Albumin Globulin Ratio 1.2 (0.9-2); Albumin Level 3.6 gm/dl (3.4-5.0); BUN Creatinine Ratio 12.2 (10-20); Bilirubin,Total 0.8 mg/dl (0.2-1.0); Calcium 9.1 mg/dl (8.6-10.3); Creatinine Clr Calc Pharmacy 77.4 ml/min; Est GFR (African American) 91.2 ml/min; Est GFR (Non-African American) 78.7 ml/min; Globulin 2.9 gm/dl (2.5-4.0); Potassium 3.5 mmol/L (3.5-5.1); Total Protein 6.5 gm/dl (6.0-8.3)
[2022-08-21] MEDS: LANTUS PER UNIT CHARGE SQ SCH (08:10)
[2022-08-21] MEDS: ACETAMINOPHEN 325 MG TAB PO PRN (08:10)
[2022-08-21] MEDS: INSULIN ASPART PER UNIT CHARGE SC SCH ×2 (08:11→12:12)
[2022-08-21] MEDS: HYDROCORTISONE VAL 0.2% CRM 15GM TUBE EXT SCH (08:12)
[2022-08-21] MEDS: CHOLECALCIFEROL 1,000 UNITS 25 MCG TAB PO SCH (08:12)
[2022-08-21] MEDS: DOXYCYCLINE HYCLATE 100 MG CAP PO SCH (08:12)
[2022-08-21] MEDS: ASPIRIN 81 MG ECTAB PO SCH (08:12)
[2022-08-21] MEDS: carvediloL 6.25 MG TAB PO SCH (08:12)
[2022-08-21] MEDS: CEROVITE ADV FORMULA TAB PO SCH (08:12)
[2022-08-21] MEDS: amLODIPine BESYLATE 5 MG TAB PO SCH (08:12)
[2022-08-21] MEDS: CALCIUM 600MG + VIT D 400 IU TAB PO SCH (08:12)
[2022-08-21] MEDS ORDERED: hydroCHLOROthiazide 25 MG TAB PO PRN (09:00)
[2022-08-21] MEDS ORDERED: SUCRALFATE 1 GM/10 ML UDC PO SCH ×4 (09:15→21:00)
[2022-08-21] MEDS ORDERED: DOCUSATE SODIUM 100 MG CAP PO SCH (09:30)
--- NOTE | 2022-08-21 11:33 | Gastroenterology Progress Note ---
Date of Service August 21, 2022 Assessment & Plan (1) Left upper quadrant abdominal pain: Plan: Patient is a 77 years old female admitted for cellulitis on back, seen for epigastric and left upper quadrant abdominal tenderness, mostly postprandial. CT abdomen and pelvis showed fluid around the hepatic hilum and thickened duodenum area? Peptic ulcer disease. - PPI IV BID - Carafate 1g BID - Colace 100mg BID for constipation; pt refused Miralax - Diet as tolerated - Keep OP EGD appt scheduled for 10/11/2022 unless worsening pain or s/s of GI bleeding - GI to sign off; pls recall prn Admission and Anticipated Discharge Date Admission Date: August 19, 2022 Supervising Physician Co-Signing Physician Notes 77 yo fm with a history of being admitted for cellulitis, chronic abd pain seen in the [facility] GI office in 08/11 with upcoming plans for an outpatient EGD. Pain has not changed in nature/characteristics, mild anemia noted on labs without bun rise. PE is as documented benign abdomen ? mild duodenitis - ppi, carafate. Perihepatic ascites may be reactive from duodenal inflammation toucing upon the liver. Agree with further plan of care as documented. Subjective Patient reports that she still having epigastric to left upper quadrant abdominal discomfort after eating. Denies any nausea or vomiting. Had bowel movements yesterday without any rectal bleeding or dark tarry stools. Review of Systems Review of Systems: All systems reviewed & are unremarkable except as noted in HPI & below Physical Exam Constitutional: WD/WN, vitals as above well groomed, cooperative and comfortable Eyes: PERRL, conjunctivae normal, anicteric sclerae ENMT: external ear and nose normal, oropharynx normal Respiratory: normal respiratory effort, lungs clear to auscultation Cardiovascular: RRR, no murmur, no edema Gastrointestinal (Abdomen): TTP epigastric, LUQ, soft, BS present Skin: no rashes, warm and dry no jaundice Psychiatric: A+Ox3, euthymic affect Lymphatic: no lymphedema Results & Data Vital Signs (Past 12 Hours) Vital Signs Temp Pulse Resp BP Pulse Ox O2 Del Method 08/21/22 08:04 36.8 C 74 18 143/76 H 92 Room Air
[2022-08-21] MEDS: ENOXAPARIN INJ 40 MG/0.4 ML SYR SQ SCH (14:07)
--- NOTE | 2022-08-21 14:08 | Discharge Summary ---
Discharge Summary Date of Service August 21, 2022 Notes For Next Care Provider Medication Changes From Visit NEW MEDS AT DISCHARGE: cefadroxil 500 mg p.o. twice daily Docusate 100 mg p.o. twice daily Pantoprazole 40 mg delayed release p.o. daily Hydrocortisone valerate 0.2% topical cream twice daily Carafate oral suspension 1 g p.o. twice daily Admission HPI Per Admitting Provider Ms. Nieves presents with numerous complaints that started one week ago including dizziness, gait ataxia, R flank pain, and fevers. She reports dizziness with stumbling with ambulation leading to a fall where she felt like she could not get back up on her own due to inability to move her lower extremities. Fevers for about the same time frame up to 101. At baseline she ambulates independently. She also reports abdominal distension and generalized pain. She reports no recent travel but does have a non productive cough that has been lingering for a month with PND. She reports some blurry vision over the past week. She came to the ED yesterday with similar symptoms. CXR negative for acute cardiopulmonary disease, head CT negative for acute cranial process including ICH or midline shift. AP CT: Trace perihepatic ascites with inflammatory stranding again noted within the rigoberto hepatis. Equivocal wall thickening of the duodenum is also noted. Findings should be correlated clinically to exclude peptic ulcer disease. Colonic diverticulosis. Very mild leukocytosis WBC 11.35 with no left shift. It is neutrophil predominant. Slight troponin bump 16.2 which I suspect is related to ischemic demand rather than ACS. Procalcitonin negative and bio fire negative. Urine appears to have some suggestion of UTI. LFTs showing mild changes from yesterday T. bili increased from 1.0-1.3; direct bilirubin increased from 1.4- 1.6. Pt was placed on a Protonix gtt in ED. Additional past medical history includes CAD, chronic back pain, HFrEF, [id number] diabetes mellitus type 2, HTN, HLD, GERD, hypothyroidism. Patient does follow with GI as an outpatient for chronic epigastric abdominal pain and postprandial symptoms. Her last appt was 07/25/22. EGD 2018: Normal esophagus. Gastritis. Biopsied. Normal examined duodenum Colon 2020: The perianal and digital rectal examinations were normal.The colon could not be advanced beyond the sigmoid colon, due to tight angulation of the s igmoid colon. A few sigmoid diverticula were seen. The procedure was aborted. Cologuard 2020: negative An ECHO was performed 08/10/2022: LVEF reduced 40 to 44%. Mild AVR. LV systolic function mildly declined. There was discussion with his outpatient cloth mercerizer back tender about adding Entresto; in discussion with the patient this medication has not been started yet. ZIO monitor was placed June 2022 for SVT. IVCD and BBB present on ZIO monitor. Patient denies CALHOUN, auditory changes, nausea, vomiting, diarrhea, recent trauma. She reports 'thinking' she had a tick bite a few weeks ago. Lyme serology negative in ED yesterday. Patient will be admitted for further evaluation and management. Please see A/P for further details. Principal Dx & Hospital Course #1 = Principal Diagnosis (1) Cellulitis: (2) HTN (hypertension): (3) Dyslipidemia: (4) Chronic back pain: (5) Diabetes mellitus, type 2: Plan Patient is a 77-year-old female who presented with right flank pain and fevers x1 week. She was started on Zosyn and doxycycline with differential diagnosis of her right flank erythematous rash including but not limited to erythema migrans secondary to rickettsial illness, bacterial cellulitis considered less likely, shingles considered less likely. She was initially placed on Valtrex and given hydrocortisone cream for anti-inflammatory effect. An abdominal pelvis CT 1 revealed trace perihepatic ascites with inflammatory stranding within the rigoberto hepatis. Equivocal wall thickening of the duodenum was also noted with findings concerning for peptic ulcer disease. She was placed on a Protonix drip and was placed on Carafate 1 g twice daily with outpatient EGD scheduled for 10/11/2022 unless worsening pain or signs or symptoms of GI bleeding which were not present. Lyme screen was negative with Anaplasma and babesiosis screenings pending at time of discharge. She was advised to stay on doxycycline given the clinical appearance of the rash which was most consistent with erythema migrans. She was also given cefadroxil at discharge for possible superficial bacterial cellulitis. At time of discharge she was in stable condition and afebrile. She was feeling better and requesting to return home. Blood cultures were negative at that time but final readings were not back yet. She was discharged in stable condition with close primary care follow-up recommended. Of note 1 of 4 blood cultures returned positive for gram-negative bacilli on 08/25/2022. She was discharged on 08/21/2022. Speciation requires specialized lab and the specimens were sent out. Patient was notified and PCP notified. We will update when these return. Notably in the outpatient setting a couple of days later a repeat Lyme screen became positive. She was advised to continue the doxycycline for the full course. Discharge Exam CONSTITUTIONAL: WNWD, vitals as above, generally well-appearing, NAD EYES: normal conjunctivae, no scleral icterus ENT: external ear and nose normal, MMM NECK: trachea midline RESPIRATORY: clear to auscultation bilaterally, no crackles, rales or wheezes, normal respiratory effort CARDIOVASCULAR: regular rate and rhythm, S1 and 2 heard without murmurs, gallops or rubs, no JVD, no peripheral edema CHEST: inspection of chest was normal GASTROINTESTINAL: soft, nontender, ND, no guarding MUSCULOSKELETAL: generalized weakness, head is normocephalic and atraumatic, SKIN: warm and dry, square confluent rash without any raised areas or wounds. Improved. There are no blisters or pustules present. She has a small raised brown area that appears similar to an SK with a greasy suck on appearance NEUROLOGIC: CN 2-12 grossly intact, no sensory deficit, normal cognition, normal speech, no tremor PSYCHIATRIC: alert cooperative and oriented to person, place and time. Updated Medication List Medication Instructions Recorded Confirmed Type amlodipine 10 mg tablet 10 mg PO QAM 12/02/18 08/19/22 History aspirin 81 mg tablet,delayed 81 mg PO QAM 12/02/18 08/19/22 History release atorvastatin 40 mg tablet 40 mg PO PM 12/02/18 08/19/22 History calcium carbonate 600 mg-vitamin 1 tab PO QAM 12/02/18 08/19/22 History D3 10 mcg (400 unit) chewable tablet (Calcium 600 with Vitamin D3) carvedilol 6.25 mg tablet 6.25 mg PO BID 12/02/18 08/19/22 History cholecalciferol (vitamin D3) 25 1,000 unit PO QAM 12/02/18 08/19/22 History mcg (1,000 unit) capsule (Vitamin D3) cyclobenzaprine 5 mg tablet 5 mg PO TID PRN Muscle Spasm 12/02/18 08/19/22 History cyclosporine 0.05 % eye drops in a 1 drp OPB TID PRN Dry Eye(S) 12/02/18 08/19/22 History dropperette (Restasis) hydrochlorothiazide 25 mg tablet 25 mg PO DIRECTED PRN Edema 12/02/18 08/19/22 History levothyroxine 125 mcg tablet 125 mcg PO QAM 12/02/18 08/19/22 History losartan 100 mg tablet 100 mg PO PM 12/02/18 08/19/22 History meloxicam 15 mg tablet 15 mg PO QAM PRN Pain 12/02/18 08/19/22 History metformin 500 mg tablet,extended 500 mg PO TIDM 12/02/18 08/19/22 History release 24 hr multivitamin 1 tab PO QAM 12/02/18 08/19/22 History olopatadine 0.2 % eye drops 1 drp OPB HS 12/02/18 08/19/22 History (Pataday) vit C,E,zinc,copper-[id number] 250 1 cap PO QAM 12/02/18 08/19/22 History mg-lutein 5 mg-zeaxanthin 1 mg capsule (Ocuvite Adult 50 Plus) acetaminophen 500 mg tablet 1,000 mg PO Q6H PRN Pain 11/27/20 08/19/22 History (Tylenol Extra Strength) Prevagen 1 cap PO QDL 02/03/22 08/19/22 History cefadroxil 500 mg capsule 500 mg PO BID #20 caps 08/21/22 Rx docusate sodium 100 mg capsule 100 mg PO BID #60 caps 08/21/22 Rx (Colace) doxycycline hyclate 100 mg capsule 100 mg PO BID #20 caps 08/21/22 Rx hydrocortisone valerate 0.2 % 1 applic EXT BID PRN skin 08/21/22 Rx topical cream irritation #60 grams pantoprazole 40 mg tablet,delayed 40 mg PO BID #60 tabs 08/21/22 Rx release (Protonix) sucralfate 100 mg/mL oral 1 g (10 mL) PO BID #600 mL 08/21/22 Rx suspension (Carafate) Hospital Stay Data Consultations 08/19/22 16:37 ED Decision to Admit Stat 08/19/22 16:58 Consult Gastroenterology Routine Diagnostic Imagining Performed 06/03/23 14:17 CT head/brain wo con Stat 08/19/22 14:19 CT abd pelvis IV con only Stat Pending Results Patient Have Any Pending Studies at Discharge: Yes Discharge Instructions Given to Patient (Per Discharging Provider) Please take all medications as instructed on discharge list below. Please ensure you continue to take your levothyroxine first thing in the morning on an empty stomach. You will need to separate the protonix and carafate from your levothyroxine by at least 4 hours to avoid medication interactions which may cause a decrease in the absorption of you thyroid medication. If you are at all concerned, your primary care provider can recheck your thyroid function tests to make sure you are getting what you need. Please followup with Gastroenterology as previously scheduled for your upper endoscopy. It is recommended that you follow-up with your primary care provider within one week of discharge to ensure you are feeling well and your rash is resolved. Several lab tests are pending at discharge today, which will be sent to your primary care physician's office when they result. This includes your HIV screening and final blood cultures which are preliminarily negative. It was a pleasure taking care of you! Please call if you have any questions or problems. You can reach a [facility] hospitalist on duty at [facility] 24 hours a day by calling [phone]. Take care of yourself. Roya Rosenthal, [facility] Hospitalist Total Time Total Time Spent Total Time Spent (In Minutes): 60
[2022-08-21] MEDS ORDERED: DOXYCYCLINE HYCLATE 100 MG CAP PO SCH (19:00)
[2022-08-21] MEDS ORDERED: PANTOprazole 40 MG in SYRINGE 0 ML IV SCH (21:00)
[2022-08-22] MEDS ORDERED: LEVOTHYROXINE SODIUM 125 MCG TABLET PO SCH (05:30)
[2022-08-22 10:48] LABS: HBSAG NON-REACTIVE (NON-REACTIVE); Hepatitis A Antibody IgM NON-REACTIVE (NON-REACTIVE); Hepatitis B Core Antibody IgM NON-REACTIVE (NON-REACTIVE)
[2022-08-22 15:22] LABS: EBV Nuclear Ag Antibody >600.00 U/mL; EBV Virus Capsid Ag IgG Ab >750.00 U/mL
--- NOTE | 2022-08-23 17:13 | Communication Note ---
Date of Service: August 23, 2022 Was notified by ER pharmacist Maria Del Rosario that blood cultures from 08/18/2022 + gram- negative bacilli. Culture results just became positive today. There are no sen sitivities currently Blood cultures from 08/19/2022 were reviewed and were negative. Patient was being treated for flank cellulitis with Zosyn and was discharged on doxycycline Called patient and she states she is feeling much better. Denies any fever or chills, N/V. States having less pain to flank area and the redness is decreasing. She states she is feeling well overall. Discussed with Dr Coelho. Suggests will need to check with lab tomorrow for final culture results and sensitivity to determine if patient will need to return to hospital/require further antibiotic therapy. Attending addendum; Discussed with the labor specialist at the microbiology, reported that the culture is growing strange organism which will be sent out and the final results may take a few weeks to come back from [facility]. Since the patient has been doing much better no further action at this time to bring the patient back for any antibiotic. Dr Tara Coelho
[2022-08-24 03:22] LABS: Babesia microti DNA Not Detected (Not Detected)
[2022-08-25 17:02] LABS: Q Fever IgG, Phase I NEGATIVE; Q Fever Phase I IgM Antibody NEGATIVE; Q Fever Phase II IgG Antibody NEGATIVE; Q Fever Phase II IgM Antibody NEGATIVE; R. typhi IgG Ab NOT DETECTED; R. typhi IgM Ab NOT DETECTED; RMSF IgG Ab NOT DETECTED; RMSF IgM Ab NOT DETECTED
[2022-08-25 17:07] LABS: Ehrlichia chaff DNA Bld Negative (Negative)
--- NOTE | 2022-09-07 18:54 | Communication Note ---
Date of Service: September 07, 2022 Additional addendum: Final blood culture collected on 08/18/2022 grew Organism 1 Moraxella osloensis Sens Non-Viable for Sensitivities Reference Lab Results from Reference Lab External Report See Scanned Report in Lab EMR Organism 2 Brevundimonas species#2 Sens Non-Viable for Sensitivities 1/2 bottle.Not viable culture and the patient has been feeling better as of 08/23/2022.No need to be treated. Repeat blood cultures on 08/19/[address] Tara Coelho
== END 2022-08-21 15:55 | disposition home or self-care (01) | DRG 603 ==
LOC: ED 13:34 → SUATTDRO 16:38 → 2N 16:38